=== PATIENT | female | born 1965 | race Caucasian/White ===

== ENCOUNTER → 2016-09-24 | Outpatient (CLI) | payer OTHER ==
[~2016-09-24] MED LIST: /WARF25TA PO; ACET65TA; ALBUTEROL INHL INH; AMLO5TAB; ARMO90TA SL; ASPI325T OR; BENA25CA PO; EPIP0.3I10 IM; LEVO125T; MAAL600C PO; METO25TA2 OR; MYLASSUD PO; OXYC30TA4 PO; PERC7.5T12 PO; TRAZ100T2 PO; TYLE325T5 PO; VICO5TAB; VOLT75TA; XANA0.5T OR; [UNRECOGNIZED DRUG - OTHER] PO
[2016-09-24 13:43] LABS: FREE T4 0.5 NG/DL (0.76-1.46)
== END ==
LOC: M LAB 11:57
PROVIDERS: ATTEND Student in an Organized Health Care Education/Training Program
DX: E03.9 Hypothyroidism, unspecified (principal)

== ENCOUNTER → 2016-09-27 | Outpatient (CLI) | payer OTHER ==
--- NOTE | 2016-09-27 11:32 | REP ---
Clinical: Hypothyroidism. Technique: Real time casiano scale and color evaluation of the thyroid gland using linear high frequency transducer. Findings: The thyroid gland is heterogeneous but without focal nodule or cystic lesions identified. Right lobe measures 2.9 x 0.9 x 1.2 cm. Left lobe measures 2.6 x 0.8 x 1.0 cm. Isthmus measures 1.8 mm in width. Impression: Heterogeneous diminutive thyroid gland Signed by Ash Jo MD 09/27/2016 11:23 A
== END ==
LOC: M RAD 09:46
PROVIDERS: ATTEND Student in an Organized Health Care Education/Training Program
DX: E03.9 Hypothyroidism, unspecified (principal)

== ENCOUNTER → 2016-10-28 | Outpatient (REF) | payer OTHER ==
[2016-10-28 16:12] LABS: ALBUMIN 3.8 GM/DL (3.2-5.2); CALCIUM LEVEL 8.8 MG/DL (8.5-10.1); CREATININE FOR GFR 1.08 MG/DL (0.55-1.02); FREE T4 0.99 NG/DL (0.76-1.46); GLOMERULAR FILTRATION RATE 56.5 (>51); PHOSPHORUS LEVEL 2.2 MG/DL (2.5-4.9); POTASSIUM SERUM 4.3 MEQ/L (3.5-5.1)
== END ==
LOC: M LABDRAW1 15:20
PROVIDERS: ATTEND Student in an Organized Health Care Education/Training Program
DX: E03.9 Hypothyroidism, unspecified (principal); R79.89 Other specified abnormal findings of blood chemistry

== ENCOUNTER → 2016-12-03 | Outpatient (CLI) | payer OTHER ==
[2016-12-03 11:23] LABS: FREE T4 1.53 NG/DL (0.76-1.46)
== END ==
LOC: M LAB 09:58
PROVIDERS: ATTEND Student in an Organized Health Care Education/Training Program
DX: E03.9 Hypothyroidism, unspecified (principal)

== ENCOUNTER → 2017-01-03 | Outpatient (REF) | payer OTHER ==
[2017-01-03 12:48] LABS: FREE T4 1.51 NG/DL (0.76-1.46)
== END ==
LOC: M LABDRAW1 11:30
PROVIDERS: ATTEND Student in an Organized Health Care Education/Training Program
DX: E03.9 Hypothyroidism, unspecified (principal)

== ENCOUNTER → 2017-01-28 | Outpatient (REF) | payer OTHER | LOC: M SFHCPLAZ 12:13 | PROVIDERS: ATTEND Family Medicine | DX: M13.0 Polyarthritis, unspecified (principal) ==

== ENCOUNTER → 2017-01-28 | Outpatient (CLI) | payer OTHER ==
[2017-01-28 13:38] LABS: URIC ACID 5.5 MG/DL (2.6-6.0)
[2017-01-30 00:06] LABS: Lyme Disease IgG/IgM Antibodie <0.91 ISR (0.00-0.90); Lyme Disease IgM Ab Quantitati <0.80 index (0.00-0.79)
== END ==
LOC: M LAB 12:39
PROVIDERS: ATTEND Family Medicine
DX: M13.0 Polyarthritis, unspecified (principal)

== ENCOUNTER → 2017-04-04 | Outpatient (CLI) | payer OTHER ==
[~2017-04-04] MED LIST changes: +ALPR0.25 PO; +ASPI81TA85 PO; +ATEN25TA PO; +COUM2.5T17 PO; +EPIP0.3I2 IM; +LEVO100T5 PO; +NAPR-751 PO; +NAPR500T3 PO; +OXYC1SOL3 PO; +PERC5TAB12 PO; +TOPI100T9 PO; +VITA500046 PO; +[UNRECOGNIZED DRUG - OTHER] PO
--- NOTE | 2017-04-04 10:17 | REPMRS ---
Patient History The patient states she had a clinical breast exam in 02/2017. Patient is postmenopausal. Family history of prostate cancer in father at age 70. Silicone gel implants in both breasts, 1985. Digital Woman Screen Mammo: April 04, 2017 - Exam #: [id number] Bilateral CC and MLO view(s) were taken. Technologist: Tori Estrada, Technologist FINDINGS: There are scattered fibroglandular densities. There is some contour deformity in each breast from previous surgical procedures, right more so than left but unchanged from the April 07, 2009 prior study. There is a small stable nodule in the left breast. There has been no change in the appearance of the mammogram from the prior studies. There is a mild amount of scattered fibroglandular density which is fairly symmetric. There is no interval development of dominant mass, architectural distortion, or clustered microcalcification suggestive of malignancy. ASSESSMENT: BI-RADS/ACR category 2 mammogram. Benign finding(s). Recommendation Routine screening mammogram in 1 year (for women over age 40). This mammogram was interpreted with the aid of an FDA-approved computer-aided dectection system. Electronically Signed By: Lloyd Sanchez MD 04/04/17 [id number]
== END ==
LOC: M WHC 08:32
PROVIDERS: ATTEND Family Medicine
DX: Z12.31 Encounter for screening mammogram for malignant neoplasm of breast (principal)

== ENCOUNTER → 2017-04-07 | Outpatient (CLI) | payer OTHER ==
[2017-04-07 19:18] LABS: FREE T4 1.29 NG/DL (0.76-1.46)
== END ==
LOC: M LAB 15:38
PROVIDERS: ATTEND Student in an Organized Health Care Education/Training Program
DX: E03.9 Hypothyroidism, unspecified (principal)

== ENCOUNTER 2017-04-12 07:54 | Emergency (ER) | payer OTHER ==
[~2017-04-12] VITALS: Ht 170.2 cm; Wt 90.9 kg
[~2017-04-12 07:54] MED LIST changes: -ALPR0.25 PO; -ASPI81TA85 PO; -ATEN25TA PO; -COUM2.5T17 PO; -EPIP0.3I2 IM; -LEVO100T5 PO; -NAPR-751 PO; -NAPR500T3 PO; -OXYC1SOL3 PO; -PERC5TAB12 PO; -TOPI100T9 PO; -VITA500046 PO; -[UNRECOGNIZED DRUG - OTHER] PO
[2017-04-12] MEDS ORDERED: ALPR0.25 PO (08:16)
[2017-04-12] MEDS ORDERED: LEVO100T5 PO (08:16)
[2017-04-12] MEDS ORDERED: OXYC1SOL3 PO (08:16)
[2017-04-12] MEDS ORDERED: ATEN25TA PO (08:16)
[2017-04-12] MEDS ORDERED: NAPR500T3 PO (08:16)
[2017-04-12] MEDS ORDERED: EPIP0.3I2 IM (08:16)
[2017-04-12] MEDS ORDERED: TOPI100T9 PO (08:16)
[2017-04-12] MEDS ORDERED: PERCOCET 5MG/325MG TAB PO ONE (09:30)
[2017-04-12 10:05] VITALS: BP 147/93
[2017-06-23] MEDS ORDERED: [UNRECOGNIZED DRUG - OTHER] PO (10:33)
[2017-06-23] MEDS ORDERED: VITA500046 PO (10:33)
[2017-06-23] MEDS ORDERED: NAPR-751 PO (10:33)
[2017-06-23] MEDS ORDERED: ASPI81TA85 PO (10:33)
== END 2017-04-12 10:23 | disposition home or self-care (01) ==
LOC: M ED 07:54
DX: G89.29 Other chronic pain (principal); M25.552 Pain in left hip; K76.0 Fatty (change of) liver, not elsewhere classified; F41.9 Anxiety disorder, unspecified; K58.9 Irritable bowel syndrome, unspecified; Z88.0 Allergy status to penicillin; Z88.1 Allergy status to other antibiotic agents; Z88.2 Allergy status to sulfonamides
CPT/HCPCS: 96372; 99283; J3360

== ENCOUNTER → 2017-05-02 | Outpatient (CLI) | payer OTHER ==
[~2017-05-02] MED LIST changes: +ALPR0.25 PO; +ASPI81TA85 PO; +ATEN25TA PO; +COUM2.5T17 PO; +EPIP0.3I2 IM; +LEVO100T5 PO; +NAPR-751 PO; +NAPR500T3 PO; +OXYC1SOL3 PO; +PERC5TAB12 PO; +TOPI100T9 PO; +VITA500046 PO; +[UNRECOGNIZED DRUG - OTHER] PO
[2017-05-02 13:02] LABS: BASO % 0.7 % (0.0-1.0); EOS # 0.1 K/mm3 (0.0-0.50); EOS % 1.8 % (0.0-3.0); LARGE UNSTAINED CELL # 0.1 K/mm3 (0.0-0.4); LARGE UNSTAINED CELL % 1.9 % (0.0-4.0); LYMPH % 39.2 % (24.0-44.0); MEAN CORPUSCULAR HEMOGLOBIN 28.3 pg (27.0-33.0); MEAN CORPUSCULAR HGB CONC 31.4 g/dl (32.0-36.5); MEAN CORPUSCULAR VOLUME 90.4 fl (80.0-96.0); MONO # 0.6 K/mm3 (0.0-0.8); MONO % 8.5 % (0.0-5.0); NEUTROPHILS # 3.5 K/mm3 (1.8-7.7); NEUTROPHILS % 47.9 % (36.0-66.0); PLATELET COUNT, AUTOMATED 265 k/mm3 (150-450); RED CELL DISTRIBUTION WIDTH 13.5 % (11.5-14.5); WHITE BLOOD COUNT 7.4 K/mm3 (4.0-10.0)
[2017-05-02 13:25] LABS: ANION GAP 6 MEQ/L (8-16); BLOOD UREA NITROGEN 11 MG/DL (7-18); CALCIUM LEVEL 9.9 MG/DL (8.5-10.1); CARBON DIOXIDE LEVEL 27 MEQ/L (21-32); CHLORIDE LEVEL 111 MEQ/L (98-107); CREATININE FOR GFR 1.01 MG/DL (0.55-1.02); GLOMERULAR FILTRATION RATE > 60.0 (>51); GLUCOSE, FASTING 80 MG/DL (70-105); POTASSIUM SERUM 4.3 MEQ/L (3.5-5.1); SODIUM LEVEL 144 MEQ/L (136-145); URIC ACID 4.9 MG/DL (2.6-6.0)
== END ==
LOC: M LAB 11:35
PROVIDERS: ATTEND Student in an Organized Health Care Education/Training Program
DX: M25.541 Pain in joints of right hand (principal)

== ENCOUNTER → 2017-05-02 | Outpatient (CLI) | payer OTHER ==
--- NOTE | 2017-05-02 14:02 | REP ---
Right hand four views : There is no fracture or dislocation. Mineralization and joint spaces are normal. There are no calcifications or foreign bodies. Impression: Negative right hand . Signed by Colton Pineda MD 05/02/2017 01:53 P
--- NOTE | 2017-05-02 14:07 | REP ---
Bilateral feet: Right foot four views: There is mild joint space narrowing of the DIP and PIP articulations compatible with articular cartilage atrophy. There is mild joint space narrowing of the great toe MTP articulation. The remainder of the joint spaces are unremarkable. Mineralization is normal. There are no calcifications. Skeletal and soft tissue structures otherwise unremarkable except for a tiny barely visible calcaneal plantar spur. Impression: Mild joint space narrowing of the PIP and DIP articulations of the great toe MTP articulation. Left foot four views: There is mild joint space narrowing of the PIP and DIP articulations of the great toe MTP articulation. Remainder of the joint spaces are normal. Mineralization is normal. There is no fracture or dislocation. There is a tiny barely visible calcaneal spur. Impression: Mild DIP, PIP and great toe MTP joint space narrowing. Otherwise, negative left foot. Signed by Colton Pineda MD 05/02/2017 01:58 P
== END ==
LOC: M RAD 12:14
PROVIDERS: ATTEND Family Medicine
DX: M79.641 Pain in right hand (principal); M79.671 Pain in right foot; M79.672 Pain in left foot; M19.071 Primary osteoarthritis, right ankle and foot; M19.072 Primary osteoarthritis, left ankle and foot

== ENCOUNTER → 2017-06-01 | Outpatient (REF) | payer OTHER ==
[2017-06-01 12:11] LABS: ALBUMIN 3.6 GM/DL (3.2-5.2); ALBUMIN/GLOBULIN RATIO 1.16 (1.00-1.93); ALKALINE PHOSPHATASE 75 U/L (45-117); ALT/SGPT 57 U/L (12-78); ANION GAP 6 MEQ/L (8-16); AST/SGOT 29 U/L (15-37); BILIRUBIN,TOTAL 0.2 MG/DL (0.2-1.0); BLOOD UREA NITROGEN 13 MG/DL (7-18); CALCIUM LEVEL 10.2 MG/DL (8.5-10.1); CARBON DIOXIDE LEVEL 27 MEQ/L (21-32); CHLORIDE LEVEL 114 MEQ/L (98-107); CREATININE FOR GFR 0.84 MG/DL (0.55-1.02); GLOMERULAR FILTRATION RATE > 60.0 (>51); GLUCOSE, FASTING 88 MG/DL (70-105); SODIUM LEVEL 147 MEQ/L (136-145); TOTAL PROTEIN 6.7 GM/DL (6.4-8.2)
== END ==
LOC: M LABDRAW1 10:18
PROVIDERS: ATTEND Student in an Organized Health Care Education/Training Program
DX: R73.03 Prediabetes (principal); I10 Essential (primary) hypertension

== ENCOUNTER → 2017-06-23 | Outpatient (CLI) | payer OTHER ==
[2017-06-23 11:58] LABS: MEAN CORPUSCULAR HEMOGLOBIN 27.9 pg (27.0-33.0); MEAN CORPUSCULAR HGB CONC 31.4 g/dl (32.0-36.5); MEAN CORPUSCULAR VOLUME 88.7 fl (80.0-96.0); RED CELL DISTRIBUTION WIDTH 13.8 % (11.5-14.5)
[2017-06-23 12:11] LABS: INR 0.92
--- NOTE | 2017-06-23 12:14 | REP ---
Chest two views HISTORY: Hypertension Comparison: 12/13/2015 The lungs are clear. The heart is normal in size. The pulmonary vasculature is normal in appearance. The bony structure is intact. IMPRESSION: No acute disease. Signed by Lui Ann MD 06/23/2017 12:06 P
[2017-06-23 13:07] LABS: ALBUMIN 3.6 GM/DL (3.2-5.2); ALBUMIN/GLOBULIN RATIO 1.13 (1.00-1.93); ALKALINE PHOSPHATASE 71 U/L (45-117); ALT/SGPT 28 U/L (12-78); ANION GAP 10 MEQ/L (8-16); AST/SGOT 14 U/L (15-37); BILIRUBIN,TOTAL 0.3 MG/DL (0.2-1.0); BLOOD UREA NITROGEN 8 MG/DL (7-18); CALCIUM LEVEL 9.3 MG/DL (8.5-10.1); CARBON DIOXIDE LEVEL 24 MEQ/L (21-32); CHLORIDE LEVEL 110 MEQ/L (98-107); CREATININE FOR GFR 0.86 MG/DL (0.55-1.02); GLOMERULAR FILTRATION RATE > 60.0 (>51); GLUCOSE, FASTING 86 MG/DL (70-105); POTASSIUM SERUM 4.1 MEQ/L (3.5-5.1); SODIUM LEVEL 144 MEQ/L (136-145); TOTAL PROTEIN 6.8 GM/DL (6.4-8.2)
--- NOTE | 2017-06-23 19:30 | ECGEPIP ---
Stationary ECG Study [facility] Test Date: 2017-06-23 Pat Name: CLARY ROLDAN Department: Room: - Gender: F Cardiovascular Tech: KERRY : 1965 Requested By: Jas Deal Order Number: [id number] Reading MD: Ana Johns Measurements Intervals [place] Rate: 77 P: 57 MN: 186 QRS: 21 QRSD: 86 T: 52 QT: 379 QTc: 430 Interpretive Statements SINUS RHYTHM SIMILAR 12/13/15 Electronically Signed On 06-23-2017 19:30:19 EDT by Ana Johns
== END ==
LOC: M ADMPAT 10:12
PROVIDERS: ATTEND Orthopaedic Surgery
DX: Z01.818 Encounter for other preprocedural examination (principal); M16.12 Unilateral primary osteoarthritis, left hip

== ENCOUNTER 2017-07-07 09:30 | Inpatient (IN) | payer OTHER ==
[2017-06-23 10:34] VITALS: BP 124/86
[~2017-07-07] VITALS: Ht 170.2 cm; Wt 87.1 kg
[~2017-07-07 09:30] MED LIST changes: -COUM2.5T17 PO; -PERC5TAB12 PO
[2017-07-07] MEDS ORDERED: PREGABALIN 75 MG CAP(LYRICA) PO ONE (12:45)
[2017-07-07] MEDS ORDERED: PERCOCET 5MG/325MG TAB PO ONE (12:45)
[2017-07-07] MEDS ORDERED: LR 1,000 ML IV ONE (12:45)
--- NOTE | 2017-07-07 13:44 | HPE ---
DATE OF ADMISSION: 07/07/2017 HISTORY OF PRESENT ILLNESS: This is a pleasant female with continuing symptomatic left hip osteoarthritis, x-rays are consistent with advanced osteoarthritis. She has consented for a left hip total arthroplasty per Dr. Jas Bolden. Medical optimization per Dr. Luz. ALLERGIES: PENICILLIN, SULFA, CLINDAMYCIN HCL, ESTRACE, PREDNISONE. MEDICATIONS: Include: - levothyroxine 100 mcg one tablet on empty stomach in the morning by mouth once a day - fluocinonide 05% ointment as directed twice daily - EpiPen two pack 0.3 mg as needed - atenolol 25 mg one tablet orally once a day - aspirin 81 mg chewable tablet orally once a day - Topamax 100 mg tablet one tablet orally daily - Synthroid 100 mcg tablet one tablet on empty stomach in the morning orally once a day - naproxen 375 mg tablet one tablet orally three times as needed - Tylenol 325 mg capsules, two capsules as needed orally every 6 hours - magnesium 400 mg capsule orally twice a week - tart russell advanced - gingko biloba 300-600-100 mg tablet orally - melatonin 3 mg one tablet at bedtime as needed with food orally once a day - krill oil 1000 mg capsule orally - ProAir FHA 108 (90 base) mcg/ACT aerosol solution two puffs as needed inhalation every 4 hours MEDICAL PROBLEM LIST: Symptomatic left hip osteoarthritis. Seborrheic dermatitis. Obesity. Hypertension. Hyperthyroidism. Anxiety. Bulimia. Depression. Irritable bowel syndrome. Asthma, exercise-induced. Osteoporosis. Diverticulosis. Social anxiety disorder. Nonalcoholic fatty liver disease. An episode of confusion on 12/13/2015 SURGICAL HISTORY: Gallbladder. Broken arm. Ulnar nerve transposition. Right hip arthroplasty. Breast implants removed. FAMILY HISTORY: Alzheimer's, hypercholesteremia, diabetes mellitus, prostate cancer, hypothyroidism, uterine and cervical cancer, coronary artery disease. SOCIAL HISTORY: Former smoker. Denies ethanol intake or illicit drugs. REVIEW OF SYSTEMS: She denies chest pain, shortness of breath, dyspnea on exertion, fever, chills, malaise, upper respiratory or urinary tract symptoms. PHYSICAL EXAMINATION: Vital signs: Blood pressure (BP) 118/74, pulse 66, temperature 98.6, height 67.5, weight 190, body mass index (BMI) 29.3, respiration 12. She is a pleasant well-developed, well-nourished, overweight female in acute distress. She is alert and oriented times three. Mood and affect are appropriate. Left hip range of motion is limited and irritable through internal and external range of motion. Bowel sounds times four, soft, nontender. Chest: Regular rate and rhythm. Chest rises symmetrically. Lungs: Clear to auscultation. Neck: Supple. Negative jugular venous distention (JVD) or bruits. Normocephalic. Chest x-ray: No acute disease as read by Dr. Ann 06/23/2017. Electrocardiogram (EKG): Sinus rhythm as read by Ana Johns MD. LABORATORIES: Were reviewed. No gross abnormalities were visualized. Nasal and sinus culture: Normal eri present. I was unable to see her urine culture, get access to her urine culture. IMPRESSION: 1. Symptomatic left hip osteoarthritis. 2. The patient consented for a left total hip arthroplasty per Dr. Jas Bolden. 3. Medical optimization by Dr. Lzu. 4. The patient has history of allergy to PENICILLIN and CLINDAMYCIN, so consideration of vancomycin in operating room (OR). 5. Sequential compression device (SCD) and thromboembolic deterrents (TEDs) in OR. Consent was updated and reviewed. [facility]
[2017-07-07] MEDS ORDERED: TRANEXAMIC ACID 100 MG/ML 10ML VIAL As Ordered ONE (14:48)
[2017-07-07] MEDS ORDERED: BUPIVACAINE/EPIN 0.25% 30 ML VIAL As Ordered ONE (14:48)
[2017-07-07] MEDS ORDERED: ceFAZolin 1GM INJ (J0690) As Ordered ONE (14:48)
[2017-07-07] MEDS ORDERED: EPINEPHrine INJ 1 MG/ML 1ML AMP As Ordered ONE (14:49)
[2017-07-07] MEDS ORDERED: MIDAZOLAM INJ 5 MG/ML VIAL (J2250) As Ordered ONE (15:37)
[2017-07-07] MEDS ORDERED: PROPOFOL 200 MG/20 ML VIAL As Ordered ONE (15:37)
[2017-07-07] MEDS ORDERED: LIDOCAINE 2% INJ 100 MG/5 ML SDV (FOR ANES.) As Ordered ONE (15:37)
[2017-07-07] MEDS ORDERED: fentaNYL 100 MCG/2 ML INJECTION (J3010) As Ordered ONE (15:38)
[2017-07-07] MEDS ORDERED: LR 1,000 ML IV SCH (18:30)
[2017-07-07] MEDS ORDERED: fentaNYL 100 MCG/2 ML INJECTION (J3010) IV PRN (18:30)
[2017-07-07] MEDS ORDERED: ONDANSETRON 4MG/2ML VIAL (J2405) IV PRN (18:30)
[2017-07-07] MEDS ORDERED: METOCLOPRAMIDE INJ 10MG/2ML VIAL (J2765) IV PRN (18:30)
[2017-07-07] MEDS ORDERED: PERCOCET 5MG/325MG TAB PO PRN ×2 (18:30→18:45)
[2017-07-07] MEDS ORDERED: MORPHINE 2 MG/ML 1ML SYRINGE IV PRN (18:30)
[2017-07-07] MEDS ORDERED: PROMETHAZINE INJ 25 MG/ML VIAL (J2550) IV PRN (18:45)
[2017-07-07] MEDS ORDERED: ACETAMINOPHEN TAB 650MG DOSE (2X325MG) PO PRN (18:45)
[2017-07-07] MEDS ORDERED: FLEET ENEMA PR PRN (18:45)
[2017-07-07 19:45] VITALS: BP 149/88
[2017-07-07] MEDS ORDERED: WARFARIN SOD 3 MG TAB PO ONE (20:00)
[2017-07-07] MEDS ORDERED: WARFARIN SOD 1 MG TAB PO ONE (20:00)
[2017-07-07 20:15] VITALS: BP 143/87
[2017-07-07 20:19] VITALS: BP 143/87
--- NOTE | 2017-07-07 20:39 | CR.PDOC ---
[facility] Consultation Consultation DATE OF CONSULTATION: 07/07/17 PRIMARY CARE PHYSICIAN: Dr. Luz REFERRING PROVIDER: Dr. Bolden ATTENDING PHYSICIAN: Dr. Bolden REASON FOR CONSULTATION/CHIEF COMPLAINT: Medical Co-management HISTORY OF PRESENT ILLNESS: This 52-year-old female past medical history of hypothyroidism, hypertension, obesity, depression, asthma who presents for right total hip for severe osteoarthritis. Patient denies chest pain/shortness of breath/palpitations. No nausea/vomiting/ abdominal pain. Feels well. ALLERGIES: Please see below. HOME MEDICATIONS: Please see below. PHYSICAL EXAMINATION: Vitals: (see below) General: No acute distress, laying comfortably in bed. HEENT: Moist mucous membranes. Neck: No JVD or lymphadenopathy Cardiac: RRR, No murmurs Pulm: Coarse crackles at the bases b/l. No wheezing, rhonchi Abd: NT/ND + BS Ext: No edema or cyanosis. Left hip with no bleeding noted. Bandage intact. Distal pulses intact. LABORATORY DATA: See below. IMAGING: MICROBIOLOGY: Please see below. ASSESSMENT/PLAN: 1. Postop day 0 status post left total hip management per orthopedics 2. Hypothyroidism- continue Synthroid 3. Hypertension- continue home meds 4. History of obesity 5. History of asthma 6. History of osteoporosis 7. History of NALFD 8. History of depression DVT prophylaxis- per orthopedics Vital Signs/I&O Vital Signs Date Time Temp Pulse Resp B/P (MAP) Pulse Ox O2 Delivery O2 Flow Rate FiO2 07/07/17 20:19 97.6 73 18 143/87 (105) 98 Room Air I&O- Last 24 Hours up to 6 AM 07/08/17 06:00 Intake Total 2830 ml Output Total 610 ml Balance 2220 ml Allergies Coded Allergies: Sulfa Drugs (Verified Allergy, Severe, ANAPHYLAXIS, 06/23/17) Ciprofloxacin (Verified Allergy, Unknown, 06/23/17) Clindamycin (Verified Allergy, Unknown, 06/23/17) TAPE (Unverified Adverse Reaction, Unknown, 07/07/17) Home Medications Scheduled (Oxycodone HCl) 5 Mg/5 Ml Rosa, 5 MG PO DAILY, (Reported) (St Claudio Wort Xtra) 1 Cap Cap, 1 CAP PO DAILY, (Reported) Aspirin (Aspir-81) 81 Mg Tab, 81 MG PO DAILY, #30 (Reported) Atenolol (Atenolol) 25 Mg Tab, 25 MG PO DAILY, #30 (Reported) Cholecalciferol (Vitamin D) 5,000 Unit Tab, 5,000 UNIT PO 3XW, (Reported) Levothyroxine Sodium (Synthroid) 100 Mcg Tab, 1 TAB PO DAILY, #30 (Reported) Topiramate (Topiramate) 100 Mg Tab, 100 MG PO DAILY, #45 (Reported) PATIENT STATES ONLY TAKES 100 MG [Albuterol Inhl] , 2 PUFFS INH PRN, (Reported) Scheduled PRN Alprazolam (Alprazolam) 0.25 Mg Tab, 0.25 MG PO Q6H PRN for ANXIETY/AGITATION, # 60 (Reported) Naproxen (Naproxen) 500 Mg Tab, 500 MG PO DAILY PRN for PAIN, #60 (Reported) Naproxen Sodium (Naproxen Sodium Cr) 375 Mg Tab, 375 MG PO BIDP PRN for PAIN, ( Reported) Miscellaneous Medications (Epipen 2-Brad) 0.3 Mg/0.3 Ml Inj, 0.3 MG IM, (Reported) KALEB GRUBER MD Jul 07, 2017 20:39
[2017-07-07] MEDS: GABAPENTIN 300 MG CAP PO SCH (20:41)
[2017-07-07] MEDS: D5W/0.45% SODIUM CHLORIDE 1,000 ML IV SCH (20:41)
[2017-07-07] MEDS: HYDROmorphone HCL 2 MG/ML 1ML VIAL (J1170) IV PRN (20:42)
[2017-07-07 21:15] VITALS: BP 139/74
[2017-07-07 22:15] VITALS: BP 140/72
[2017-07-07 23:15] VITALS: BP 136/75
[2017-07-08] MEDS: NORTRIPTYLINE 10 MG CAP PO SCH ×3 (00:10→20:36)
[2017-07-08] MEDS: PERCOCET 5MG/325MG TAB PO PRN ×4 (00:34→21:19)
[2017-07-08] MEDS: HYDROmorphone HCL 2 MG/ML 1ML VIAL (J1170) IV PRN (04:16)
[2017-07-08] MEDS: LEVOTHYROXINE 100MCG TABLET (0.1MG) PO SCH (05:47)
[2017-07-08 06:00] VITALS: BP 109/73
[2017-07-08 06:56] LABS: MEAN CORPUSCULAR HEMOGLOBIN 28.6 pg (27.0-33.0); MEAN CORPUSCULAR HGB CONC 32.2 g/dl (32.0-36.5); MEAN CORPUSCULAR VOLUME 88.7 fl (80.0-96.0); PLATELET COUNT, AUTOMATED 204 10^3/uL (150-450); RED CELL DISTRIBUTION WIDTH 13.4 % (11.5-14.5); WHITE BLOOD COUNT 9.2 10^3/uL (4.0-10.0)
[2017-07-08 07:15] LABS: INR 0.98
[2017-07-08] MEDS: D5W/0.45% SODIUM CHLORIDE 1,000 ML IV SCH (07:46)
[2017-07-08] MEDS: MIRALAX *UNIT DOSE* 17GM PACKET PO SCH (08:57)
[2017-07-08] MEDS: GABAPENTIN 300 MG CAP PO SCH ×2 (08:57→20:36)
[2017-07-08] MEDS: MOM 30ML SUSPENSION UDC PO SCH (08:57)
[2017-07-08] MEDS: SENOKOT S TAB PO SCH ×2 (08:59→20:20)
[2017-07-08] MEDS: ATENOLOL 25 MG TAB PO SCH (08:59)
--- NOTE | 2017-07-08 09:03 | REP ---
LEFT HIP: Two views of the left hip performed. There is a total hip prosthesis in good position. Structures are well aligned. No acute fracture is seen. Signed by Colton Varma MD 07/11/2017 09:44 A
[2017-07-08 10:00] VITALS: BP 110/78
[2017-07-08 14:00] VITALS: BP 123/77
[2017-07-08] MEDS: TOPIRAMATE (TopAMAX) 100 MG TAB PO SCH (14:02)
[2017-07-08] MEDS: HYDROmorphone HCL 1 MG/ML SYRINGE (J1170) IV PRN ×2 (15:27→20:36)
[2017-07-08] MEDS ORDERED: WARFARIN SOD 5 MG TAB PO ONE (17:00)
[2017-07-08 22:00] VITALS: BP 123/78
[2017-07-09] MEDS: PERCOCET 5MG/325MG TAB PO PRN ×4 (02:10→20:28)
[2017-07-09] MEDS: LEVOTHYROXINE 100MCG TABLET (0.1MG) PO SCH (05:33)
[2017-07-09 06:00] VITALS: BP_DIAS 137
[2017-07-09 06:42] LABS: MEAN CORPUSCULAR HEMOGLOBIN 28.4 pg (27.0-33.0); MEAN CORPUSCULAR HGB CONC 31.9 g/dl (32.0-36.5); MEAN CORPUSCULAR VOLUME 89.1 fl (80.0-96.0); PLATELET COUNT, AUTOMATED 193 10^3/uL (150-450); RED CELL DISTRIBUTION WIDTH 13.3 % (11.5-14.5); WHITE BLOOD COUNT 11.1 10^3/uL (4.0-10.0)
[2017-07-09 07:08] LABS: INR 1.27
[2017-07-09] MEDS: MIRALAX *UNIT DOSE* 17GM PACKET PO SCH (08:44)
[2017-07-09] MEDS: GABAPENTIN 300 MG CAP PO SCH ×2 (08:45→20:17)
[2017-07-09] MEDS: ATENOLOL 25 MG TAB PO SCH (08:45)
[2017-07-09] MEDS: MOM 30ML SUSPENSION UDC PO SCH (08:47)
[2017-07-09] MEDS: TOPIRAMATE (TopAMAX) 100 MG TAB PO SCH (08:47)
[2017-07-09] MEDS: SENOKOT S TAB PO SCH ×2 (08:47→20:17)
--- NOTE | 2017-07-09 13:36 | IPNPDOC ---
Subjective Date Seen The patient was seen on 07/09/17. Subjective Chief Complaint/HPI The patient is a 52-year-old female admitted with a reason for visit of Arthritis Left Hip. Events since last encounter No complaints this am except for pain in the left hip surgical site. no fever or chills, no cheat pian or cough or sob , no abdominal pain , nausea or vomiting. Objective Physical Examination General Exam: Positive: Alert, Cooperative, No Acute Distress Eye Exam: Positive: PERRLA, Conjunctiva & lids normal, EOMI, Negative: Sclera icteric ENT Exam: Positive: Atraumatic, Mucous membr. moist/pink, Pharynx Normal Neck Exam: Positive: Supple, Negative: JVD, thyromegaly Chest Exam: Positive: Clear to auscultation, Normal air movement Heart Exam: Positive: Rate Normal, Regular Rhythm, Normal S1, Normal S2, Negative: Murmurs, Rubs Abdomen Exam: Positive: Normal bowel sounds, Soft, Negative: Tenderness, Hepatospenomegaly Extremity Exam: Positive: Normal pulses, Negative: Clubbing, Cyanosis, Edema Skin Exam: Positive: Nl turgor and temperature, Negative: Rash, Breakdown Assessment /Plan Problems (1) S/P total hip arthroplasty Problem Text: s/p elective left total hip arthroplasty for advanced osteoarthritis. pain control and dvt prophylaxis as per orthopedics. (2) Hypertension Status: Chronic Problem Text: continue home medication atenolol. (3) Hypothyroid Status: Chronic Problem Text: continue synthroid (4) Obesity Status: Chronic (5) Asthma Status: Chronic (6) Fatty liver Status: Chronic (7) Depression Status: Chronic Problem Text: continue amitriptyline and topamax (8) Fibromyalgia Status: Chronic Problem Text: continue gabapentin, topiramate, amitriptyline. Plan/VTE VTE Prophylaxis Ordered?: Yes VS, I&O, 24H, Fishbone Vital Signs/I&O Vital Signs Date Time Temp Pulse Resp B/P (MAP) Pulse Ox O2 Delivery O2 Flow Rate FiO2 07/09/17 13:29 18 Room Air 07/09/17 08:45 93 128/75 07/09/17 06:00 99.2 98 I&O- Last 24 Hours up to 6 AM 07/10/17 06:00 Intake Total 240 ml Balance 240 ml Laboratory Data 24H LABS Laboratory Tests 2 07/09/17 06:02: Nucleated Red Blood Cells % (auto) 0.0, Prothrombin Time 16.1H, Prothromb Time International Ratio 1.27 CBC/BMP Laboratory Tests 07/09/17 06:02 Red Blood Count 4.12, Mean Corpuscular Volume 89.1, Mean Corpuscular Hemoglobin 28.4, Mean Corpuscular Hemoglobin Concent 31.9 L, Red Cell Distribution Width 13.3 MIO YANG MD Jul 09, 2017 13:36
[2017-07-09 14:00] VITALS: BP 106/69
[2017-07-09] MEDS: HYDROmorphone HCL 2 MG/ML 1ML VIAL (J1170) IV PRN (15:04)
[2017-07-09] MEDS ORDERED: WARFARIN SOD 3 MG TAB PO ONE (17:00)
[2017-07-09] MEDS: NORTRIPTYLINE 10 MG CAP PO SCH (20:17)
[2017-07-09 22:00] VITALS: BP 114/73
[2017-07-10] MEDS: PERCOCET 5MG/325MG TAB PO PRN ×3 (00:44→09:37)
[2017-07-10] MEDS: LEVOTHYROXINE 100MCG TABLET (0.1MG) PO SCH (04:51)
[2017-07-10 06:00] VITALS: BP 108/69
[2017-07-10 06:30] LABS: MEAN CORPUSCULAR VOLUME 87.9 fl (80.0-96.0); PLATELET COUNT, AUTOMATED 204 10^3/uL (150-450); RED CELL DISTRIBUTION WIDTH 13.4 % (11.5-14.5); WHITE BLOOD COUNT 10.8 10^3/uL (4.0-10.0)
[2017-07-10 06:48] LABS: INR 1.34
[2017-07-10] MEDS ORDERED: ENOXAPARIN 30 MG/0.3 ML SYR (J1650) SC ONE (08:00)
[2017-07-10] MEDS ORDERED: PERC5TAB12 PO (08:10)
[2017-07-10] MEDS ORDERED: COUM2.5T17 PO (08:10)
[2017-07-10] MEDS: MIRALAX *UNIT DOSE* 17GM PACKET PO SCH (09:00)
[2017-07-10] MEDS: MOM 30ML SUSPENSION UDC PO SCH (09:00)
[2017-07-10] MEDS: GABAPENTIN 300 MG CAP PO SCH (09:35)
[2017-07-10 09:36] VITALS: BP 108/69
[2017-07-10] MEDS: SENOKOT S TAB PO SCH (09:36)
[2017-07-10] MEDS: TOPIRAMATE (TopAMAX) 100 MG TAB PO SCH (09:36)
[2017-07-10] MEDS: ATENOLOL 25 MG TAB PO SCH (09:36)
--- NOTE | 2017-07-12 18:37 | DSES ---
DATE OF ADMISSION: 07/07/2017 DATE OF DISCHARGE: 07/10/2017 ATTENDING PHYSICIAN: Dr Jas Bolden ADMITTING DIAGNOSIS: Left hip osteoarthritis. OTHER DIAGNOSES: Seborrheic dermatitis. Obesity. Hypertension. Hyperthyroid. Anxiety. Bulimia. Irritable bowel syndrome. Exercise induced asthma. Osteoporosis. Diverticulosis. Nonalcoholic fatty liver disease. DISCHARGE DIAGNOSES: Left hip osteoarthritis status post left total hip arthroplasty. HISTORY: Patient is a 52-year-old female with progressively worsening left hip pain and stiffness. She failed to improve with conservative measures. She continues to have pain with weightbearing activities and activities of daily living. She consented for an elective left total hip arthroplasty with Dr. Bolden. OPERATION PERFORMED: Left total hip arthroplasty. HOSPITAL COURSE: The patient underwent a left total hip arthroplasty under spinal anesthesia, which was uneventful. She was up with physical therapy per their protocol, weight bearing as tolerated on the left lower extremity. Patient was discharged on oral pain medications and will resume her preoperative medications and diet. She will take her Coumadin for 30 days postoperatively to prevent deep venous thrombosis. She will follow up in our office in 12-14 days for wound check and staple removal. She is encouraged to contact our office sooner if there is any increased pain, drainage, numbness or tingling in the extremity, redness, fever greater than 101 degrees of any other concerns. Please see medical records for additional details. SUE
--- NOTE | 2017-07-14 11:53 | RO ---
DATE OF PROCEDURE: 07/07/2017 PREOPERATIVE DIAGNOSIS: Left hip osteoarthritis. POSTOPERATIVE DIAGNOSIS: Left hip osteoarthritis. PROCEDURE PERFORMED: Left total hip replacement. SURGEON: Jas Bolden MD [employer]IGH SCHOOL MUSIC DIRECTOR: SABINO De Souza ANESTHESIA: Spinal. ESTIMATED BLOOD LOSS: Less than 150 mL, replaced with crystalloid. COMPLICATIONS: None. INDICATIONS: Progressive discomfort in the left hip. The patient's previous history of right hip replacement did well. COMPONENTS USED: Include DePuy Inland system, including 36 mm femoral head, apex hole eliminator, appropriate stem +5 mm, 54 mm cup, 36 mm polyethylene liner, ceramic femoral head was utilized. Consent reviewed in detail with the patient, including a diomedes discussion of the pathology involved, the procedure proposed, alternatives including doing nothing, risks including but not limited to pain, failure, infection, bleeding blood loss, incomplete relief of symptoms, dislocation, blood clots, infection, need for additional surgery, limp, other problems. The patient agreed to proceed with surgery. OPERATIVE COURSE: Identified in the holding area. Site side verified. Brought to the operating room. Once spinal anesthesia was administered, she was positioned for exposure of the left hip for arthroplasty on the Mcdavid positioner for the modified Hardinge approach. Once I and the employee adviser were comfortable with the patient's positioning, she was sterilely prepped and draped in the usual fashion. Mr. Hernandez stood on the anterior. I stood on the posterior. The incision outlined with a marking pen, infiltrated with 0.25% Marcaine with epinephrine and made with a #10 blade knife. The incision was approximately 12 cm long, made with a #10 blade knife, developed down through skin and subcuticular tissues to the lateral fascia. Longitudinal split was created in the lateral fascia, which was made with a Christiansen scissor. This exposed the greater trochanter, bursa and the abductor mechanism. The abductor mechanism was then split at the 2-o'clock position. Dissection continued down the femoral neck and the acetabular labrum was split using the cautery. Tag stitch was placed in the abductor mechanism for later repair. A cuff of tissue was left in the greater trochanter as the abductor mechanism was reflected off of the greater trochanter anteriorly. Dissection continued releasing longitudinally the vastus lateralis. Hip capsule was also split so that the lesser trochanter could be palpated. The hip was then dislocated using the hook. Mr. Hernandez manipulated the hip into the sterile bag and the greater trochanter was exposed using retractors. Canal opening reamer, followed by canal finding reamer, followed by the lateral reamer was utilized. We reamed through a size 4 stem. Template was utilized and the femoral neck cut was made with an oscillating saw. The femoral head was removed. Once this was accomplished, we utilized serial broaches lateralizing. We ended with a size 4. The broach was removed and attention was turned to the acetabulum. I placed the anterior and posterior retractors and Mr. Hernandez help secure the retractors while I removed the acetabulum labrum, released the transverse acetabular ligament and cleared the floor of the acetabulum. Hemispherical reamers were then utilized to ream the acetabulum. I utilized the hemispherical reamers. I reamed through a size 53 reamer, which seemed to fit appropriately. We selected for a 54 acetabulum and the 54 acetabular component was impacted using a mallet. We used the targeting device. The apex hole eliminator was placed after I had verify the acetabulum was seated. 36 mm polyethylene shell was utilized and verified to be secure impacted with a nylon impactor. Attention turned to the femoral side. I placed the 4 stem, +1 neck length, trial 36 femoral head. Stability was adequate. The abductor mechanism seemed to be at the appropriate tension. We verified stability of the hip with internal rotation and flexion, as well as external rotation and extension. The trial component was dislocated. Irrigation was accomplished. The non trial 4 stem was implanted. The non trial stem seated to the same depth as the trial stem and I then placed the 36 mm non trial ceramic femoral head. The hip was reduced. The placed through a range of motion and found to be stable. I irrigated with pulse lavage. I also irrigated with tranexamic acid (TXA) hemostatic agent. The hemostatic agent was allowed stand for 1 minute. Once this was accomplished and the hemostatic agent was evacuated, we closed the wound. This included closure of the capsule and minimus tissues and reapproximation of the abductor mechanism to the cuff of tissue on the greater trochanter with interrupted stitch. The vastus lateralis was also reapproximated with interrupted and running stitch. Lateral fascia was approximated with interrupted stitch and a running Stratafix stitch. Deep dermis was approximated with interrupted stitch and then I applied the Prineo dressing. Once this was accomplished and the Prineo had dried, I did apply loose ABD dressing. The Mcdavid frame was then disassembled. The patient was moved to the supine position, moved to the hospital bed in good condition. Pillows placed between the knees and she was moved to the recovery room. Mr. Hernandez was present and I was present for the entirety case. For further details, please refer to the medical record.
== END 2017-07-10 12:54 | disposition home health service (06) | DRG 301 ==
LOC: M OR 11:52 → M MS5PR 19:35
PROVIDERS: ADMIT Orthopaedic Surgery; ATTEND Orthopaedic Surgery
PROC: 0SRB02A Replacement of Left Hip Joint with Metal on Polyethylene Synthetic Substitute, Uncemented, Open Approach (ICD-10-PCS; principal; 2017-07-07 13:45)
DX: M16.12 Unilateral primary osteoarthritis, left hip (principal); E66.9 Obesity, unspecified; I10 Essential (primary) hypertension; E03.9 Hypothyroidism, unspecified; F32.9 Major depressive disorder, single episode, unspecified; M81.0 Age-related osteoporosis without current pathological fracture; Z98.86 Personal history of breast implant removal; Z87.891 Personal history of nicotine dependence; Z88.0 Allergy status to penicillin; Z88.2 Allergy status to sulfonamides; Z88.8 Allergy status to other drugs, medicaments and biological substances; Z79.82 Long term (current) use of aspirin

== ENCOUNTER → 2017-07-28 | Outpatient (REF) | payer OTHER ==
[~2017-07-28] MED LIST changes: +COUM2.5T17 PO; +PERC5TAB12 PO
[2017-07-28 15:31] LABS: INR 2.17
== END ==
LOC: M SHH 15:11
PROVIDERS: ATTEND Nurse Practitioner Family
DX: Z51.81 Encounter for therapeutic drug level monitoring (principal); Z79.01 Long term (current) use of anticoagulants

== ENCOUNTER → 2017-08-01 | Outpatient (REF) | payer OTHER ==
[2017-08-01 15:19] LABS: INR 2.31
== END ==
LOC: M SHH 14:21
PROVIDERS: ATTEND Internal Medicine Infectious Disease
DX: Z79.01 Long term (current) use of anticoagulants (principal)

== ENCOUNTER → 2017-08-04 | Outpatient (REF) | payer OTHER ==
[2017-08-04 16:23] LABS: INR 1.83
== END ==
LOC: M SHH 15:51
PROVIDERS: ATTEND Nurse Practitioner Family
DX: Z51.81 Encounter for therapeutic drug level monitoring (principal); Z79.01 Long term (current) use of anticoagulants

== ENCOUNTER → 2017-09-13 | Outpatient (CLI) | payer OTHER | LOC: M LAB 11:24 | PROVIDERS: ATTEND Student in an Organized Health Care Education/Training Program | DX: E03.9 Hypothyroidism, unspecified (principal) ==

== ENCOUNTER → 2017-09-13 | Outpatient (CLI) | payer OTHER ==
[2017-09-13 12:39] LABS: BASO % 0.7 % (0.0-1.0); EOS # 0.1 10^3/uL (0.0-0.50); EOS % 1.2 % (0.0-3.0); IMMATURE GRANULOCYTE % 0.2 % (0-0); LYMPH # 2.1 10^3/uL (1.5-4.5); LYMPH % 35.3 % (24.0-44.0); MEAN CORPUSCULAR HEMOGLOBIN 28.5 pg (27.0-33.0); MEAN CORPUSCULAR HGB CONC 32.4 g/dl (32.0-36.5); MEAN CORPUSCULAR VOLUME 88.2 fl (80.0-96.0); MONO # 0.5 10^3/uL (0.0-0.8); MONO % 8.1 % (0.0-5.0); NEUTROPHILS # 3.2 10^3/uL (1.8-7.7); NEUTROPHILS % 54.5 % (36.0-66.0); PLATELET COUNT, AUTOMATED 295 10^3/uL (150-450); RED CELL DISTRIBUTION WIDTH 14.2 % (11.5-14.5); WHITE BLOOD COUNT 5.9 10^3/uL (4.0-10.0)
[2017-09-13 13:00] LABS: ERYTHROCYTE SEDIMENTATION RATE 5 mm/hr (0-30)
[2017-09-13 13:01] LABS: ALBUMIN 3.7 GM/DL (3.2-5.2); ALBUMIN/GLOBULIN RATIO 1.19 (1.00-1.93); ALKALINE PHOSPHATASE 78 U/L (45-117); ALT/SGPT 41 U/L (12-78); ANION GAP 7 MEQ/L (8-16); AST/SGOT 19 U/L (7-37); BILIRUBIN,TOTAL 0.2 MG/DL (0.2-1.0); BLOOD UREA NITROGEN 10 MG/DL (7-18); CALCIUM LEVEL 9.3 MG/DL (8.5-10.1); CARBON DIOXIDE LEVEL 27 MEQ/L (21-32); CHLORIDE LEVEL 109 MEQ/L (98-107); CREATININE FOR GFR 0.91 MG/DL (0.55-1.02); GLOMERULAR FILTRATION RATE > 60.0 (>51); GLUCOSE, FASTING 86 MG/DL (70-105); SODIUM LEVEL 143 MEQ/L (136-145); TOTAL PROTEIN 6.8 GM/DL (6.4-8.2)
== END ==
LOC: M LAB 11:20
PROVIDERS: ATTEND Internal Medicine
DX: M05.741 Rheumatoid arthritis with rheumatoid factor of right hand without organ or systems involvement (principal)

== ENCOUNTER → 2017-10-13 | Outpatient (REF) | payer OTHER ==
[2017-10-13 18:43] LABS: ALBUMIN/GLOBULIN RATIO 1.25 (1.00-1.93); ALKALINE PHOSPHATASE 78 U/L (45-117); ALT/SGPT 30 U/L (12-78); ANION GAP 6 MEQ/L (8-16); AST/SGOT 13 U/L (7-37); BILIRUBIN,TOTAL 0.2 MG/DL (0.2-1.0); BLOOD UREA NITROGEN 12 MG/DL (7-18); C REACTIVE PROTEIN QUANTITATIV < 0.30 MG/DL (0.00-0.30); CALCIUM LEVEL 9.8 MG/DL (8.5-10.1); CARBON DIOXIDE LEVEL 27 MEQ/L (21-32); CHLORIDE LEVEL 107 MEQ/L (98-107); CREATININE FOR GFR 0.92 MG/DL (0.55-1.02); GLOMERULAR FILTRATION RATE > 60.0 (>51); GLUCOSE, FASTING 104 MG/DL (70-100); POTASSIUM SERUM 4.2 MEQ/L (3.5-5.1); SODIUM LEVEL 140 MEQ/L (136-145); TOTAL PROTEIN 7.2 GM/DL (6.4-8.2)
[2017-10-13 20:28] LABS: BASO % 0.4 % (0.0-1.0); EOS % 0.3 % (0.0-3.0); HEMATOCRIT 46.7 % (36.0-47.0); HEMOGLOBIN 14.9 g/dl (12.0-16.0); IMMATURE GRANULOCYTE % 0.3 % (0-0); LYMPH # 1.8 10^3/uL (1.5-4.5); LYMPH % 17.8 % (24.0-44.0); MEAN CORPUSCULAR HEMOGLOBIN 28.3 pg (27.0-33.0); MEAN CORPUSCULAR HGB CONC 31.9 g/dl (32.0-36.5); MEAN CORPUSCULAR VOLUME 88.6 fl (80.0-96.0); MONO # 0.6 10^3/uL (0.0-0.8); MONO % 6.1 % (0.0-5.0); NEUTROPHILS # 7.4 10^3/uL (1.8-7.7); NEUTROPHILS % 75.1 % (36.0-66.0); PLATELET COUNT, AUTOMATED 289 10^3/uL (150-450); RED BLOOD COUNT 5.27 10^6/uL (4.00-5.40); RED CELL DISTRIBUTION WIDTH 15.3 % (11.5-14.5); WHITE BLOOD COUNT 9.8 10^3/uL (4.0-10.0)
[2017-10-13 21:10] LABS: ERYTHROCYTE SEDIMENTATION RATE 2 mm/hr (0-30)
== END ==
LOC: M LABDRAW1 14:25
DX: M05.741 Rheumatoid arthritis with rheumatoid factor of right hand without organ or systems involvement (principal)
CPT/HCPCS: 36415

== ENCOUNTER → 2017-12-22 | Outpatient (CLI) | payer OTHER ==
[2017-12-22 11:48] LABS: HEMATOCRIT 44.1 % (36.0-47.0); HEMOGLOBIN 14.1 g/dl (12.0-15.5); MEAN CORPUSCULAR HEMOGLOBIN 29.3 pg (27.0-33.0); MEAN CORPUSCULAR VOLUME 91.5 fl (80.0-96.0); PLATELET COUNT, AUTOMATED 278 10^3/uL (150-450); RED BLOOD COUNT 4.82 10^6/uL (4.00-5.40); RED CELL DISTRIBUTION WIDTH 15.1 % (11.5-14.5); WHITE BLOOD COUNT 5.3 10^3/uL (4.0-10.0)
[2017-12-22 13:05] LABS: ANION GAP 5 MEQ/L (8-16); BLOOD UREA NITROGEN 9 MG/DL (7-18); CALCIUM LEVEL 9.6 MG/DL (8.5-10.1); CARBON DIOXIDE LEVEL 27 MEQ/L (21-32); CHLORIDE LEVEL 112 MEQ/L (98-107); CREATININE FOR GFR 0.97 MG/DL (0.55-1.30); FREE T4 1.15 NG/DL (0.76-1.46); GLOMERULAR FILTRATION RATE > 60.0 (>51); GLUCOSE, FASTING 78 MG/DL (70-100); IRON (FE) 81 UG/DL (50-170); MAGNESIUM LEVEL 2.2 MG/DL (1.8-2.4); POTASSIUM SERUM 4.5 MEQ/L (3.5-5.1); SODIUM LEVEL 144 MEQ/L (136-145); THYROID STIMULATING HORMONE 0.741 uIU/ML (0.358-3.740)
== END ==
LOC: M LAB 10:58
DX: E03.9 Hypothyroidism, unspecified (principal)
CPT/HCPCS: 83540

== ENCOUNTER → 2018-01-10 | Outpatient (REF) | payer OTHER ==
[2018-01-10 12:31] LABS: APPEARANCE, URINE CLEAR (CLEAR); BACTERIA, URINE AUTO 1+ (NEGATIVE); BILIRUBIN, URINE AUTO NEGATIVE (NEGATIVE); BLOOD, URINE BLOOD NEGATIVE (NEGATIVE); COLOR, URINE STRAW (YELLOW); GLUCOSE, URINE (UA) AUTO NEGATIVE (NEGATIVE); KETONE, URINE AUTO NEGATIVE (NEGATIVE); LEUKOCYTE ESTERASE, URINE AUTO NEGATIVE (NEGATIVE); NITRITE, URINE AUTO NEGATIVE (NEGATIVE); PROTEIN, URINE AUTO NEGATIVE (NEGATIVE); RBC, URINE AUTO 0 /HPF (0-3); SPECIFIC GRAVITY URINE AUTO 1.002 (1.002-1.035); SQUAMOUS EPITHELIAL CELL UR AU 0 /HPF (0-6); UROBILINOGEN, URINE AUTO 0.2 mg/dL (0.0-2.0); WBC, URINE AUTO 0 /HPF (0-3)
== END ==
LOC: M LAB REF 11:46
DX: L40.50 Arthropathic psoriasis, unspecified (principal)
CPT/HCPCS: 81001

== ENCOUNTER → 2018-01-19 | Outpatient (CLI) | payer OTHER ==
[2018-01-19 12:03] LABS: BASO % 0.5 % (0.0-1.0); EOS % 0.5 % (0.0-3.0); HEMATOCRIT 43.6 % (36.0-47.0); HEMOGLOBIN 14.2 g/dl (12.0-15.5); IMMATURE GRANULOCYTE % 0.3 % (0-3.0); LYMPH # 2.2 10^3/uL (1.5-4.5); LYMPH % 32.8 % (24.0-44.0); MEAN CORPUSCULAR HGB CONC 32.6 g/dl (32.0-36.5); MEAN CORPUSCULAR VOLUME 92.2 fl (80.0-96.0); MONO # 0.5 10^3/uL (0.0-0.8); MONO % 6.9 % (0.0-5.0); NEUTROPHILS # 3.9 10^3/uL (1.8-7.7); PLATELET COUNT, AUTOMATED 260 10^3/uL (150-450); RED BLOOD COUNT 4.73 10^6/uL (4.00-5.40); RED CELL DISTRIBUTION WIDTH 14.4 % (11.5-14.5); WHITE BLOOD COUNT 6.6 10^3/uL (4.0-10.0)
== END ==
LOC: M LAB 11:41
DX: Z23 Encounter for immunization (principal)
CPT/HCPCS: 85025

== ENCOUNTER → 2018-01-24 | Outpatient (CLI) | payer OTHER ==
[2018-01-24 16:36] LABS: C REACTIVE PROTEIN QUANTITATIV 1.39 MG/DL (0.00-0.30)
[2018-01-24 16:50] LABS: ERYTHROCYTE SEDIMENTATION RATE 12 mm/hr (0-30)
== END ==
LOC: M LAB 15:33
DX: Z96.642 Presence of left artificial hip joint (principal)
CPT/HCPCS: 86140

== ENCOUNTER → 2018-02-09 | Outpatient (CLI) | payer OTHER | LOC: M RAD 09:35 | DX: Z96.643 Presence of artificial hip joint, bilateral (principal) ==

== ENCOUNTER → 2018-03-14 | Outpatient (REF) | payer OTHER | LOC: M SFHCPLAZ 16:12 | DX: R35.0 Frequency of micturition (principal); R10.9 Unspecified abdominal pain ==

== ENCOUNTER → 2018-03-15 | Outpatient (CLI) | payer OTHER ==
[2018-03-15 12:42] LABS: BASO % 0.7 % (0.0-1.0); EOS % 0.9 % (0.0-3.0); HEMATOCRIT 44.6 % (36.0-47.0); HEMOGLOBIN 14.6 g/dl (12.0-15.5); IMMATURE GRANULOCYTE % 0.2 % (0-3.0); LYMPH % 45.4 % (24.0-44.0); MEAN CORPUSCULAR HEMOGLOBIN 29.8 pg (27.0-33.0); MEAN CORPUSCULAR HGB CONC 32.7 g/dl (32.0-36.5); MONO # 0.5 10^3/uL (0.0-0.8); MONO % 10.1 % (0.0-5.0); NEUTROPHILS # 1.9 10^3/uL (1.8-7.7); NEUTROPHILS % 42.7 % (36.0-66.0); PLATELET COUNT, AUTOMATED 248 10^3/uL (150-450); WHITE BLOOD COUNT 4.5 10^3/uL (4.0-10.0)
[2018-03-15 13:13] LABS: LIPASE 351 U/L (73-393)
[2018-03-15 13:13] LABS: C REACTIVE PROTEIN QUANTITATIV < 0.30 MG/DL (0.00-0.30)
== END ==
LOC: M LAB 10:59
DX: R10.9 Unspecified abdominal pain (principal)
CPT/HCPCS: 74018

== ENCOUNTER → 2018-05-02 | Outpatient (CLI) | payer OTHER | LOC: M CARPUL 11:01 | DX: J45.40 Moderate persistent asthma, uncomplicated (principal) | CPT/HCPCS: 94060 ==

== ENCOUNTER → 2018-05-31 | Outpatient (REF) | payer OTHER ==
[2018-05-31 15:51] LABS: C REACTIVE PROTEIN QUANTITATIV < 0.30 MG/DL (0.00-0.30)
[2018-05-31 16:05] LABS: ERYTHROCYTE SEDIMENTATION RATE 12 mm/hr (0-30)
== END ==
LOC: M LABDRAW1 14:38
DX: Z96.642 Presence of left artificial hip joint (principal); Z47.1 Aftercare following joint replacement surgery

== ENCOUNTER → 2018-08-18 | Outpatient (REF) | payer OTHER ==
[2018-08-18 13:26] LABS: ANION GAP 7 MEQ/L (8-16); BLOOD UREA NITROGEN 13 MG/DL (7-18); CALCIUM LEVEL 9.3 MG/DL (8.5-10.1); CARBON DIOXIDE LEVEL 29 MEQ/L (21-32); CHLORIDE LEVEL 109 MEQ/L (98-107); GLOMERULAR FILTRATION RATE > 60.0 (>51); GLUCOSE, FASTING 81 MG/DL (70-100); POTASSIUM SERUM 4.1 MEQ/L (3.5-5.1); SODIUM LEVEL 145 MEQ/L (136-145)
== END ==
LOC: M LABDRAW1 11:22
DX: M05.79 Rheumatoid arthritis with rheumatoid factor of multiple sites without organ or systems involvement (principal)
CPT/HCPCS: 80048

== ENCOUNTER → 2018-10-30 | Outpatient (REF) | payer OTHER ==
[~2018-10-30] MED LIST changes: +NAPR-885 PO; -NAPR500T3 PO
[2018-10-30 18:44] LABS: BASO # 0.1 10^3/uL (0.0-0.2); BASO % 0.9 % (0.0-1.0); EOS # 0.1 10^3/uL (0.0-0.50); EOS % 1.4 % (0.0-3.0); HEMOGLOBIN 14.4 g/dl (12.0-15.5); LYMPH % 51.5 % (24.0-44.0); MEAN CORPUSCULAR HEMOGLOBIN 30.6 pg (27.0-33.0); MEAN CORPUSCULAR HGB CONC 32.7 g/dl (32.0-36.5); MEAN CORPUSCULAR VOLUME 93.6 fl (80.0-96.0); MONO # 0.7 10^3/uL (0.0-0.8); MONO % 11.9 % (0.0-5.0); NEUTROPHILS % 34.1 % (36.0-66.0); PLATELET COUNT, AUTOMATED 310 10^3/uL (150-450); WHITE BLOOD COUNT 5.8 10^3/uL (4.0-10.0)
[2018-10-30 19:12] LABS: ALBUMIN 3.9 GM/DL (3.2-5.2); ALT/SGPT 31 U/L (12-78); BILIRUBIN,TOTAL 0.2 MG/DL (0.2-1.0); BLOOD UREA NITROGEN 12 MG/DL (7-18); C REACTIVE PROTEIN QUANTITATIV < 0.30 MG/DL (0.00-0.30); CALCIUM LEVEL 9.3 MG/DL (8.5-10.1); CARBON DIOXIDE LEVEL 27 MEQ/L (21-32); CHLORIDE LEVEL 108 MEQ/L (98-107); CREATININE FOR GFR 0.99 MG/DL (0.55-1.30); GLOMERULAR FILTRATION RATE > 60.0 (>51); GLUCOSE, FASTING 77 MG/DL (70-100); POTASSIUM SERUM 4.4 MEQ/L (3.5-5.1); SODIUM LEVEL 141 MEQ/L (136-145)
[2018-10-30 19:38] LABS: ERYTHROCYTE SEDIMENTATION RATE 4 mm/hr (0-30)
[2018-11-01 10:58] LABS: SSA SJOGRENS A 0.3 AI (0.0-0.9); SSB SJOGRENS B <0.2 AI (0.0-0.9)
== END ==
LOC: M LABDRAW1 12:59
PROVIDERS: ATTEND Nurse Practitioner Family
DX: M05.79 Rheumatoid arthritis with rheumatoid factor of multiple sites without organ or systems involvement (principal)

== ENCOUNTER → 2018-12-21 | Outpatient (REF) | payer OTHER ==
[~2018-12-21] MED LIST changes: -/WARF25TA PO; +BIOT10TA2 PO; +COUM1TAB18 PO; +CYCL10TA PO; +DAILTAB8 PO; +FISH7.5C PO; +HUMI40IN2; +METH2.5T48 PO; +MILK150C PO; +MUCI600T31 PO; +TOPI200T7 PO; +VITA80003 PO
[2018-12-21 13:24] LABS: BASO % 0.8 % (0.0-1.0); EOS # 0.1 10^3/uL (0.0-0.50); EOS % 0.9 % (0.0-3.0); HEMATOCRIT 45.6 % (36.0-47.0); LYMPH # 2.8 10^3/uL (1.5-4.5); LYMPH % 52.8 % (24.0-44.0); MEAN CORPUSCULAR HEMOGLOBIN 30.1 pg (27.0-33.0); MEAN CORPUSCULAR HGB CONC 32.9 g/dl (32.0-36.5); MEAN CORPUSCULAR VOLUME 91.4 fl (80.0-96.0); MONO # 0.6 10^3/uL (0.0-0.8); MONO % 10.9 % (0.0-5.0); NEUTROPHILS # 1.8 10^3/uL (1.8-7.7); NEUTROPHILS % 34.4 % (36.0-66.0); PLATELET COUNT, AUTOMATED 281 10^3/uL (150-450); RED BLOOD COUNT 4.99 10^6/uL (4.00-5.40); WHITE BLOOD COUNT 5.3 10^3/uL (4.0-10.0)
== END ==
LOC: M LABDRAW1 12:32
PROVIDERS: ATTEND Nurse Practitioner Family
DX: M05.79 Rheumatoid arthritis with rheumatoid factor of multiple sites without organ or systems involvement (principal)

== ENCOUNTER 2018-12-22 19:57 | Emergency (ER) | payer OTHER ==
[~2018-12-22] VITALS: Ht 170.2 cm; Wt 86.4 kg
[~2018-12-22 19:57] MED LIST changes: -BIOT10TA2 PO; -CYCL10TA PO; -DAILTAB8 PO; -FISH7.5C PO; -HUMI40IN2; -METH2.5T48 PO; -MILK150C PO; -MUCI600T31 PO; -TOPI200T7 PO; -VITA80003 PO
[2018-12-22] MEDS ORDERED: VITA80003 PO (20:09)
[2018-12-22] MEDS ORDERED: TOPI200T7 PO (20:09)
[2018-12-22] MEDS ORDERED: FISH7.5C PO (20:09)
[2018-12-22] MEDS ORDERED: DAILTAB8 PO (20:09)
[2018-12-22] MEDS ORDERED: MILK150C PO (20:51)
[2018-12-22] MEDS ORDERED: MUCI600T31 PO (20:51)
[2018-12-22] MEDS ORDERED: METH2.5T48 PO (20:51)
[2018-12-22] MEDS ORDERED: CYCL10TA PO (20:51)
[2018-12-22] MEDS ORDERED: BIOT10TA2 PO (20:51)
[2018-12-22] MEDS ORDERED: HUMI40IN2 (20:51)
[2018-12-22 21:15] LABS: INR 0.97
[2018-12-22 21:16] LABS: PARTIAL THROMBOPLASTIN TIME 28.9 SECONDS (25.4-37.6)
[2018-12-22 21:32] LABS: D-DIMER QUANT 2092.79 ng/ml (<500)
[2018-12-22 21:34] LABS: ALT/SGPT 37 U/L (12-78); BILIRUBIN,DIRECT < 0.1 MG/DL (0.0-0.2); BILIRUBIN,TOTAL 0.3 MG/DL (0.2-1.0); BLOOD UREA NITROGEN 17 MG/DL (7-18); CALCIUM LEVEL 10.1 MG/DL (8.5-10.1); CARBON DIOXIDE LEVEL 27 MEQ/L (21-32); CHLORIDE LEVEL 109 MEQ/L (98-107); CPK CREATINE PHOSPHOKINASE 125 U/L (26-192); CREATININE FOR GFR 1.29 MG/DL (0.55-1.30); FREE T4 1.42 NG/DL (0.76-1.46); GLOMERULAR FILTRATION RATE 45.7 (>51); GLUCOSE, FASTING 107 MG/DL (70-100); MAGNESIUM LEVEL 2.3 MG/DL (1.8-2.4); MB/CK RELATIVE INDEX 1.36 (< OR =4); POTASSIUM SERUM 3.6 MEQ/L (3.5-5.1); SODIUM LEVEL 143 MEQ/L (136-145); THYROID STIMULATING HORMONE 0.456 uIU/ML (0.358-3.740); TOTAL PROTEIN 6.8 GM/DL (6.4-8.2); TROPONIN I < 0.02 NG/ML (< 0.10)
--- NOTE | 2018-12-22 21:34 | ECGEPIP ---
Stationary ECG Study [facility] - ED Test Date: 2018-12-22 Pat Name: CLARY ROLDAN Department: Room: - Gender: F Slab Puller: GALI : 1965 Requested By: MICHEAL AMATO PA-C Order Number: [id number] Reading MD: Cipriano Gaona Measurements Intervals [place] Rate: 71 P: 39 IA: 201 QRS: 5 QRSD: 86 T: 28 QT: 387 QTc: 423 Interpretive Statements SINUS RHYTHM WITH SINUS ARRHYTHMIA Septal Q waves of uncertain significance Electronically Signed On 12-22-2018 21:34:52 EDT by Cipriano Gaona
[2018-12-22 22:01] LABS: AMPHETAMINES LEVEL URINE NEGATIVE (NEGATIVE); BARBITURATES URINE NEGATIVE (NEGATIVE); BENZODIAZEPINES URINE NEGATIVE (NEGATIVE); CANNABINOIDS URINE POSITIVE (NEGATIVE); COCAINE METABOLITE URINE NEGATIVE (NEGATIVE); METHADONE URINE NEGATIVE (NEGATIVE); OPIATES URINE NEGATIVE (NEGATIVE); PHENCYCLIDINE URINE NEGATIVE (NEGATIVE)
[2018-12-22] MEDS ORDERED: ISOVUE-370 76% 100ML VIAL (Q9967) As Ordered ONE (22:18)
--- NOTE | 2018-12-22 23:04 | REP ---
Clinical: Acute chest pain. Technique: Axial contrast enhanced images from the thoracic inlet to the upper abdomen using 100 ml Isovue 370 intravenous contrast material with coronal and sagittal re-formations. Findings: Satisfactory enhancement of the pulmonary vasculature is achieved and no filling defects are identified to suggest pulmonary embolus. Thoracic aorta is normal caliber without aneurysm or dissection. Heart and pericardium are normal. Bilateral lung head are well aerated and clear without acute pulmonary parenchymal consolidation or atelectasis. No nodule or mass lesion. No pleural effusion/reaction. No pneumothorax. No adenopathy. Impression: No evidence for pulmonary embolus. No acute pleuroparenchymal or mediastinal process. Electronically Signed by Ash Jo MD 12/22/2018 10:55 P
[2018-12-22 23:06] VITALS: BP 141/92
== END 2018-12-22 23:46 | disposition home or self-care (01) ==
LOC: M ED 19:57
DX: R20.2 Paresthesia of skin (principal); I49.8 Other specified cardiac arrhythmias; I10 Essential (primary) hypertension; J45.909 Unspecified asthma, uncomplicated; R51 Headache; E03.9 Hypothyroidism, unspecified; M81.0 Age-related osteoporosis without current pathological fracture; K75.81 Nonalcoholic steatohepatitis (NASH); K58.9 Irritable bowel syndrome, unspecified; F41.9 Anxiety disorder, unspecified; F32.9 Major depressive disorder, single episode, unspecified; F40.10 Social phobia, unspecified; Z79.899 Other long term (current) drug therapy; Z88.1 Allergy status to other antibiotic agents; Z88.2 Allergy status to sulfonamides; Z88.0 Allergy status to penicillin; Z91.89 Other specified personal risk factors, not elsewhere classified
CPT/HCPCS: 71275; 80048; 80076; 80307; 81001; 82140; 82550; 82553; 83735; 84439; 84443; 85379; 85610; 85730; 93005; 99284; Q9967

== ENCOUNTER 2019-03-17 00:10 | Emergency (ER) | payer OTHER ==
[~2019-03-17] VITALS: Ht 172.7 cm; Wt 86.4 kg
[2019-03-17 00:10] VITALS: BP 180/90
[~2019-03-17 00:10] MED LIST changes: +BIOT10TA2 PO; +CYCL10TA PO; +DAILTAB8 PO; +FISH7.5C PO; +HUMI40IN2; +METH2.5T48 PO; +MILK150C PO; +MUCI600T31 PO; +TOPI200T7 PO; +VITA80003 PO
--- NOTE | 2019-03-17 15:01 | REP ---
Clinical: Foreign body. Technique: Four AP views from the neck through the pelvis. Findings: Two linear metallic foreign bodies are identified in the left upper quadrant consistent with the given history of swallowed nose ring. Remainder examination is normal. Evidence of prior cholecystectomy. Evidence for prior bilateral hip replacements. Impression: Metallic foreign body within the left upper quadrant consistent with swallowed nose ring. Electronically Signed by Ash Jo MD 03/17/2019 06:51 A
== END 2019-03-17 02:37 | disposition left against medical advice (07) ==
LOC: M ED 00:10
DX: Z53.29 Procedure and treatment not carried out because of patient's decision for other reasons (principal)

== ENCOUNTER → 2019-03-23 | Outpatient (REF) | payer OTHER ==
[~2019-03-23] MED LIST changes: +FOLI1TAB11 PO
== END ==
LOC: M SFHCWAGY 11:13
PROVIDERS: ATTEND Family Medicine
DX: Z12.4 Encounter for screening for malignant neoplasm of cervix (principal)

== ENCOUNTER 2019-03-26 16:25 | Emergency (ER) | payer OTHER ==
[~2019-03-26] VITALS: Ht 170.2 cm; Wt 86.4 kg
[~2019-03-26 16:25] MED LIST changes: -FOLI1TAB11 PO; -GASTROGRAFIN SOLUTION 30ML PO ONE; -GASTROGRAFIN SOLUTION 30ML PO SCH
[2019-03-26] MEDS ORDERED: FOLI1TAB11 PO (18:29)
[2019-03-26] MEDS ORDERED: GASTROGRAFIN SOLUTION 30ML PO SCH (19:15)
[2019-03-26] MEDS ORDERED: ISOVUE-370 76% 100ML VIAL (Q9967) As Ordered ONE (20:45)
--- NOTE | 2019-03-26 21:43 | REPVR ---
EXAM: CT Abdomen and Pelvis With Contrast EXAM DATE/TIME: 03/26/2019 8:51 PM CLINICAL HISTORY: 53 years old, female; Abdominal pain; Localized; Left upper quadrant (luq); Additional info: RO diverticulitis TECHNIQUE: Imaging protocol: Axial computed tomography images of the abdomen and pelvis with intravenous contrast. Coronal and sagittal reformatted images were created and reviewed. Radiation optimization: All CT scans at this facility use at least one of these dose optimization techniques: automated exposure control; mA and/or kV adjustment per patient size (includes targeted exams where dose is matched to clinical indication); or iterative reconstruction. Contrast material: ISOVUE 370; Contrast volume: 100 ml; Contrast route: IV; COMPARISON: PELVIS NON-OB COMPLETE US 02/02/2016 11:49 AM FINDINGS: Lungs: Minimal bilateral lower lobe dependent atelectasis. Liver: The liver attenuation is 77 Hounsfield units and the spleen is 135 Hounsfield units. Gallbladder and bile ducts: Status post cholecystectomy. Mild biliary dilation which is attributed to prior cholecystectomy and is likely physiologic. The CBD measures 12 mm. Pancreas: The pancreatic duct is upper normal measuring 4 mm with no cut off. Spleen: Normal. No splenomegaly. Adrenals: Normal. No mass. Kidneys and ureters: Normal. No hydronephrosis. Stomach and bowel: There a few sigmoid diverticula without diverticulitis. Appendix: A normal appendix is seen. Intraperitoneal space: Normal. No free air. No significant fluid collection. Vasculature: Normal. No abdominal aortic aneurysm. Lymph nodes: Normal. No enlarged lymph nodes. Bladder: Unremarkable as visualized. Reproductive: Unremarkable as visualized. Bones/joints: Facet arthropathy of the lower lumbar spine. Bilateral hip prostheses with beam hardening artifact in the pelvis. Soft tissues: Unremarkable. IMPRESSION: 1. Fatty infiltration of the liver. 2. Status post cholecystectomy. 3. There are a few sigmoid diverticula without diverticulitis. 4. Otherwise negative CT abdomen/pelvis. Electronically signed by: Delfino Nicholas On 03/26/2019 21:43:04 PM
[2019-03-26 22:04] VITALS: BP 137/86
== END 2019-03-26 22:06 | disposition home or self-care (01) ==
LOC: M ED 16:25
DX: K57.30 Diverticulosis of large intestine without perforation or abscess without bleeding (principal); R10.9 Unspecified abdominal pain; M06.9 Rheumatoid arthritis, unspecified; M79.7 Fibromyalgia; I10 Essential (primary) hypertension; E03.9 Hypothyroidism, unspecified; J45.909 Unspecified asthma, uncomplicated; K27.9 Peptic ulcer, site unspecified, unspecified as acute or chronic, without hemorrhage or perforation; K58.9 Irritable bowel syndrome, unspecified; Z87.440 Personal history of urinary (tract) infections; K76.0 Fatty (change of) liver, not elsewhere classified; N80.9 Endometriosis, unspecified; K80.20 Calculus of gallbladder without cholecystitis without obstruction; Z79.899 Other long term (current) drug therapy; Z88.0 Allergy status to penicillin; Z88.2 Allergy status to sulfonamides; Z88.1 Allergy status to other antibiotic agents; Z91.89 Other specified personal risk factors, not elsewhere classified
CPT/HCPCS: 36415; 74177; 99284; Q9963; Q9967

== ENCOUNTER → 2019-03-26 | Outpatient (CLI) | payer OTHER ==
[2019-03-26 14:59] LABS: BASO % 0.7 % (0.0-1.0); EOS % 0.5 % (0.0-3.0); HEMATOCRIT 43.2 % (36.0-47.0); LYMPH # 2.9 10^3/uL (1.5-4.5); LYMPH % 48.8 % (24.0-44.0); MEAN CORPUSCULAR HEMOGLOBIN 29.4 pg (27.0-33.0); MEAN CORPUSCULAR HGB CONC 32.4 g/dl (32.0-36.5); MEAN CORPUSCULAR VOLUME 90.8 fl (80.0-96.0); MONO # 0.6 10^3/uL (0.0-0.8); MONO % 9.3 % (0.0-5.0); NEUTROPHILS # 2.4 10^3/uL (1.8-7.7); NEUTROPHILS % 40.5 % (36.0-66.0); PLATELET COUNT, AUTOMATED 263 10^3/uL (150-450); RED BLOOD COUNT 4.76 10^6/uL (4.00-5.40); WHITE BLOOD COUNT 5.9 10^3/uL (4.0-10.0)
[2019-03-26 15:30] LABS: BILIRUBIN,DIRECT 0.1 MG/DL (0.0-0.2); BILIRUBIN,TOTAL 0.4 MG/DL (0.2-1.0)
== END ==
LOC: M LAB 14:01
PROVIDERS: ATTEND Nurse Practitioner Family
DX: M05.79 Rheumatoid arthritis with rheumatoid factor of multiple sites without organ or systems involvement (principal)

== ENCOUNTER → 2019-03-26 | Outpatient (CLI) | payer OTHER ==
[~2019-03-26] MED LIST changes: +GASTROGRAFIN SOLUTION 30ML PO ONE; +GASTROGRAFIN SOLUTION 30ML PO SCH
[2019-03-26 14:58] LABS: BASO % 0.5 % (0.0-1.0); EOS % 0.5 % (0.0-3.0); HEMATOCRIT 43.5 % (36.0-47.0); HEMOGLOBIN 14.1 g/dl (12.0-15.5); LYMPH # 2.7 10^3/uL (1.5-4.5); LYMPH % 47.7 % (24.0-44.0); MEAN CORPUSCULAR HEMOGLOBIN 29.5 pg (27.0-33.0); MEAN CORPUSCULAR HGB CONC 32.4 g/dl (32.0-36.5); MONO # 0.6 10^3/uL (0.0-0.8); MONO % 10.2 % (0.0-5.0); NEUTROPHILS # 2.3 10^3/uL (1.8-7.7); NEUTROPHILS % 40.9 % (36.0-66.0); PLATELET COUNT, AUTOMATED 257 10^3/uL (150-450); RED BLOOD COUNT 4.78 10^6/uL (4.00-5.40); WHITE BLOOD COUNT 5.7 10^3/uL (4.0-10.0)
[2019-03-26 15:29] LABS: BILIRUBIN,TOTAL 0.4 MG/DL (0.2-1.0); CALCIUM LEVEL 10.2 MG/DL (8.5-10.1); CREATININE FOR GFR 1.14 MG/DL (0.55-1.30); GLOMERULAR FILTRATION RATE 52.7 (>51); TOTAL PROTEIN 7.3 GM/DL (6.4-8.2)
== END ==
LOC: M LAB 14:08
PROVIDERS: ATTEND Student in an Organized Health Care Education/Training Program
DX: R10.12 Left upper quadrant pain (principal); K27.9 Peptic ulcer, site unspecified, unspecified as acute or chronic, without hemorrhage or perforation

== ENCOUNTER → 2019-03-27 | Outpatient (REF) | payer OTHER ==
[~2019-03-27] MED LIST changes: +FOLI1TAB11 PO
== END ==
LOC: M SFHCPLAZ 17:50
PROVIDERS: ATTEND Student in an Organized Health Care Education/Training Program
DX: K27.9 Peptic ulcer, site unspecified, unspecified as acute or chronic, without hemorrhage or perforation (principal)

== ENCOUNTER → 2019-04-20 | Outpatient (REF) | payer OTHER ==
[2019-04-20 14:20] LABS: BASO % 0.7 % (0.0-1.0); EOS % 0.7 % (0.0-3.0); HEMATOCRIT 43.5 % (36.0-47.0); HEMOGLOBIN 13.9 g/dl (12.0-15.5); LYMPH # 2.4 10^3/uL (1.5-4.5); LYMPH % 45.1 % (24.0-44.0); MEAN CORPUSCULAR HEMOGLOBIN 29.8 pg (27.0-33.0); MEAN CORPUSCULAR VOLUME 93.1 fl (80.0-96.0); MONO # 0.5 10^3/uL (0.0-0.8); MONO % 9.2 % (0.0-5.0); NEUTROPHILS # 2.4 10^3/uL (1.8-7.7); NEUTROPHILS % 44.1 % (36.0-66.0); PLATELET COUNT, AUTOMATED 247 10^3/uL (150-450); RED BLOOD COUNT 4.67 10^6/uL (4.00-5.40); WHITE BLOOD COUNT 5.3 10^3/uL (4.0-10.0)
[2019-04-20 14:27] LABS: ALBUMIN 3.7 GM/DL (3.2-5.2); ALT/SGPT 33 U/L (12-78); BILIRUBIN,TOTAL 0.2 MG/DL (0.2-1.0); BLOOD UREA NITROGEN 13 MG/DL (7-18); CALCIUM LEVEL 9.5 MG/DL (8.5-10.1); CARBON DIOXIDE LEVEL 29 MEQ/L (21-32); CHLORIDE LEVEL 110 MEQ/L (98-107); CPK CREATINE PHOSPHOKINASE 49 U/L (26-192); CREATININE FOR GFR 1.02 MG/DL (0.55-1.30); GLOMERULAR FILTRATION RATE 59.9 (>51); GLUCOSE, FASTING 73 MG/DL (70-100); POTASSIUM SERUM 4.2 MEQ/L (3.5-5.1); SODIUM LEVEL 143 MEQ/L (136-145); TOTAL PROTEIN 6.8 GM/DL (6.4-8.2)
[2019-04-20 14:36] LABS: FOLATE > 24.0 NG/ML; VITAMIN B12 LEVEL 565 PG/ML
[2019-04-20 14:52] LABS: ERYTHROCYTE SEDIMENTATION RATE 1 mm/hr (0-30)
== END ==
LOC: M LABNEURO 10:45
PROVIDERS: ATTEND Psychiatry & Neurology Neurology
DX: H02.409 Unspecified ptosis of unspecified eyelid (principal); R51 Headache; R41.3 Other amnesia

== ENCOUNTER → 2019-05-01 | Outpatient (REF) | payer OTHER | LOC: M SFHCPLAZ 12:02 | PROVIDERS: ATTEND Student in an Organized Health Care Education/Training Program | DX: R10.12 Left upper quadrant pain (principal) ==

== ENCOUNTER → 2019-05-07 | Outpatient (CLI) | payer OTHER | LOC: M LAB 16:47 | PROVIDERS: ATTEND Student in an Organized Health Care Education/Training Program | DX: E83.52 Hypercalcemia (principal) ==

== ENCOUNTER → 2019-06-12 | Outpatient (REF) | payer OTHER ==
[2019-06-12 14:49] LABS: BASO % 0.8 % (0.0-1.0); EOS % 0.4 % (0.0-3.0); HEMATOCRIT 44.8 % (36.0-47.0); HEMOGLOBIN 14.3 g/dl (12.0-15.5); LYMPH # 2.3 10^3/uL (1.5-5.0); LYMPH % 45.1 % (24.0-44.0); MEAN CORPUSCULAR HEMOGLOBIN 30.4 pg (27.0-33.0); MEAN CORPUSCULAR HGB CONC 31.9 g/dl (32.0-36.5); MEAN CORPUSCULAR VOLUME 95.3 fl (80.0-96.0); MONO # 0.5 10^3/uL (0.0-0.8); MONO % 9.2 % (0.0-5.0); NEUTROPHILS # 2.3 10^3/uL (1.5-8.5); NEUTROPHILS % 44.5 % (36.0-66.0); PLATELET COUNT, AUTOMATED 235 10^3/uL (150-450); WHITE BLOOD COUNT 5.1 10^3/uL (4.0-10.0)
[2019-06-12 15:07] LABS: ALBUMIN 3.6 GM/DL (3.2-5.2); ALT/SGPT 36 U/L (12-78); BILIRUBIN,TOTAL 0.3 MG/DL (0.2-1.0); BLOOD UREA NITROGEN 10 MG/DL (7-18); C REACTIVE PROTEIN QUANTITATIV < 0.30 MG/DL (0.00-0.30); CALCIUM LEVEL 9.5 MG/DL (8.5-10.1); CARBON DIOXIDE LEVEL 25 MEQ/L (21-32); CHLORIDE LEVEL 112 MEQ/L (98-107); CREATININE FOR GFR 0.88 MG/DL (0.55-1.30); GLOMERULAR FILTRATION RATE > 60.0 (>51); GLUCOSE, FASTING 73 MG/DL (70-100); POTASSIUM SERUM 4.1 MEQ/L (3.5-5.1); SODIUM LEVEL 142 MEQ/L (136-145); TOTAL PROTEIN 6.5 GM/DL (6.4-8.2)
[2019-06-12 15:16] LABS: ERYTHROCYTE SEDIMENTATION RATE 1 mm/hr (0-30)
== END ==
LOC: M LABNEURO 11:37
PROVIDERS: ATTEND Nurse Practitioner Family
DX: M05.79 Rheumatoid arthritis with rheumatoid factor of multiple sites without organ or systems involvement (principal)

== ENCOUNTER → 2019-06-22 | Outpatient (REF) | payer OTHER | LOC: M SFHCPLAZ 13:20 | PROVIDERS: ATTEND Student in an Organized Health Care Education/Training Program | DX: R10.12 Left upper quadrant pain (principal) ==

== ENCOUNTER 2019-07-09 21:43 | Emergency (ER) | payer OTHER ==
[~2019-07-09] VITALS: Ht 170.2 cm; Wt 85.5 kg
[~2019-07-09 21:43] MED LIST changes: -METH2.5T48 PO; +METH2.5T48 SUBQ
[2019-07-09 22:11] LABS: BASO % 0.5 % (0.0-1.0); EOS % 0.4 % (0.0-3.0); HEMATOCRIT 49.8 % (36.0-47.0); HEMOGLOBIN 16.4 g/dl (12.0-15.5); LYMPH # 3.1 10^3/uL (1.5-5.0); LYMPH % 39.1 % (24.0-44.0); MEAN CORPUSCULAR HEMOGLOBIN 30.3 pg (27.0-33.0); MEAN CORPUSCULAR HGB CONC 32.9 g/dl (32.0-36.5); MEAN CORPUSCULAR VOLUME 91.9 fl (80.0-96.0); MONO # 0.9 10^3/uL (0.0-0.8); NEUTROPHILS # 3.8 10^3/uL (1.5-8.5); NEUTROPHILS % 48.9 % (36.0-66.0); PLATELET COUNT, AUTOMATED 311 10^3/uL (150-450); RED BLOOD COUNT 5.42 10^6/uL (4.00-5.40); WHITE BLOOD COUNT 7.8 10^3/uL (4.0-10.0)
[2019-07-09 22:26] LABS: PROTHROMBIN TIME 12.9 SECONDS (11.8-14.0)
[2019-07-09 22:27] LABS: PARTIAL THROMBOPLASTIN TIME 29.8 SECONDS (25.0-38.4)
[2019-07-09 22:33] LABS: BLOOD UREA NITROGEN 14 MG/DL (7-18); CALCIUM LEVEL 10.1 MG/DL (8.5-10.1); CARBON DIOXIDE LEVEL 25 MEQ/L (21-32); CHLORIDE LEVEL 106 MEQ/L (98-107); CK-MB VALUE MASS < 1.0 NG/ML (<3.6); CPK CREATINE PHOSPHOKINASE 65 U/L (26-192); CREATININE FOR GFR 1.19 MG/DL (0.55-1.30); GLUCOSE, FASTING 106 MG/DL (70-100); MB/CK RELATIVE INDEX 1.54 (< OR =4); POTASSIUM SERUM 3.4 MEQ/L (3.5-5.1); SODIUM LEVEL 140 MEQ/L (136-145); TROPONIN I < 0.02 NG/ML (< 0.10)
[2019-07-09] MEDS ORDERED: GABA-845 PO (22:44)
[2019-07-09] MEDS ORDERED: OMEP40CA97 PO (22:44)
[2019-07-09] MEDS ORDERED: PROBCAP14 PO (22:44)
[2019-07-09] MEDS ORDERED: LEXA1TAB2 PO (22:44)
[2019-07-09] MEDS ORDERED: ASPI81TA85 PO (22:44)
[2019-07-09] MEDS ORDERED: XIID5DRO OU (22:44)
[2019-07-09] MEDS ORDERED: GABA800T4 PO (22:44)
[2019-07-09] MEDS ORDERED: HYDR-643 PO (22:44)
[2019-07-09] MEDS ORDERED: HYDR1CRE93 TOP (22:44)
--- NOTE | 2019-07-09 22:48 | REPVR ---
PROCEDURE INFORMATION: Exam: CT Head Without Contrast Exam date and time: 07/09/2019 10:05 PM Clinical history: 54 years old, female; Dizziness; Additional info: CVA - nursing interventions must not delay CT TECHNIQUE: Imaging protocol: Computed tomography of the head without contrast. Radiation optimization: All CT scans at this facility use at least one of these dose optimization techniques: automated exposure control; mA and/or kV adjustment per patient size (includes targeted exams where dose is matched to clinical indication); or iterative reconstruction. COMPARISON: CT Head without contrast 12/13/2015 9:42 PM FINDINGS: Brain: No intracranial hemorrhage or extra-axial fluid collection. No evidence of mass effect or midline shift. Varma-white matter differentiation is intact. Ventricles: No ventriculomegaly. Bones/joints: No acute osseus lesion or fracture. Sinuses: Unremarkable as visualized. Mastoid air cells: Unremarkable. Soft tissues: Unremarkable. IMPRESSION: No acute intracranial pathology. Electronically signed by: Tai Teague On 07/09/2019 22:48:23 PM
[2019-07-10 05:00] VITALS: BP 149/87
--- NOTE | 2019-07-10 10:12 | ECGEPIP ---
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
== END 2019-07-10 05:19 | disposition home or self-care (01) ==
LOC: M ED 21:43
DX: R20.2 Paresthesia of skin (principal); I10 Essential (primary) hypertension; K58.9 Irritable bowel syndrome, unspecified; F41.9 Anxiety disorder, unspecified; F32.9 Major depressive disorder, single episode, unspecified; M79.7 Fibromyalgia; M06.9 Rheumatoid arthritis, unspecified; Z87.891 Personal history of nicotine dependence; Z79.82 Long term (current) use of aspirin; Z79.899 Other long term (current) drug therapy; Z88.0 Allergy status to penicillin; Z88.2 Allergy status to sulfonamides; Z88.1 Allergy status to other antibiotic agents; Z91.89 Other specified personal risk factors, not elsewhere classified

== ENCOUNTER → 2019-08-22 | Outpatient (CLI) | payer OTHER ==
[~2019-08-22] MED LIST changes: +GABA-845 PO; +GABA800T4 PO; +HYDR-643 PO; +HYDR1CRE93 TOP; +LEXA1TAB2 PO; +OMEP40CA97 PO; +PROBCAP14 PO; +XIID5DRO OU
[2019-08-22 15:52] LABS: BASO % 0.8 % (0.0-1.0); EOS # 0.1 10^3/uL (0.0-0.5); HEMATOCRIT 44.5 % (36.0-47.0); HEMOGLOBIN 13.8 g/dl (12.0-15.5); LYMPH # 2.1 10^3/uL (1.5-5.0); LYMPH % 41.3 % (24.0-44.0); MEAN CORPUSCULAR HEMOGLOBIN 29.7 pg (27.0-33.0); MEAN CORPUSCULAR VOLUME 95.9 fl (80.0-96.0); MONO # 0.6 10^3/uL (0.0-0.8); MONO % 11.8 % (0.0-5.0); NEUTROPHILS # 2.3 10^3/uL (1.5-8.5); NEUTROPHILS % 44.7 % (36.0-66.0); PLATELET COUNT, AUTOMATED 255 10^3/uL (150-450); RED BLOOD COUNT 4.64 10^6/uL (4.00-5.40); WHITE BLOOD COUNT 5.1 10^3/uL (4.0-10.0)
[2019-08-22 16:14] LABS: ALBUMIN 3.4 GM/DL (3.2-5.2); ALT/SGPT 31 U/L (12-78); BILIRUBIN,TOTAL 0.3 MG/DL (0.2-1.0); BLOOD UREA NITROGEN 11 MG/DL (7-18); C REACTIVE PROTEIN QUANTITATIV < 0.30 MG/DL (0.00-0.30); CALCIUM LEVEL 9.6 MG/DL (8.5-10.1); CARBON DIOXIDE LEVEL 24 MEQ/L (21-32); CHLORIDE LEVEL 112 MEQ/L (98-107); CREATININE FOR GFR 0.99 MG/DL (0.55-1.30); GLOMERULAR FILTRATION RATE > 60.0 (>51); GLUCOSE, FASTING 82 MG/DL (70-100); POTASSIUM SERUM 4.3 MEQ/L (3.5-5.1); SODIUM LEVEL 142 MEQ/L (136-145); TOTAL PROTEIN 6.5 GM/DL (6.4-8.2)
[2019-08-22 17:55] LABS: ERYTHROCYTE SEDIMENTATION RATE 2 mm/hr (0-30)
== END ==
LOC: M LAB 12:59
PROVIDERS: ATTEND Nurse Practitioner Family
DX: M05.79 Rheumatoid arthritis with rheumatoid factor of multiple sites without organ or systems involvement (principal)

== ENCOUNTER → 2019-09-15 | Outpatient (CLI) | payer OTHER ==
[2019-09-15 12:10] LABS: BASO # 0.1 10^3/uL (0.0-0.2); EOS # 0.1 10^3/uL (0.0-0.5); EOS % 1.7 % (0.0-3.0); HEMATOCRIT 48.4 % (36.0-47.0); HEMOGLOBIN 14.8 g/dl (12.0-15.5); MEAN CORPUSCULAR HGB CONC 30.6 g/dl (32.0-36.5); MEAN CORPUSCULAR VOLUME 94.7 fl (80.0-96.0); MONO # 0.7 10^3/uL (0.0-0.8); MONO % 12.5 % (0.0-5.0); NEUTROPHILS # 2.4 10^3/uL (1.5-8.5); NEUTROPHILS % 45.6 % (36.0-66.0); PLATELET COUNT, AUTOMATED 257 10^3/uL (150-450); RED BLOOD COUNT 5.11 10^6/uL (4.00-5.40); WHITE BLOOD COUNT 5.2 10^3/uL (4.0-10.0)
== END ==
LOC: M LAB 11:22
PROVIDERS: ATTEND Internal Medicine
DX: Z20.818 Contact with and (suspected) exposure to other bacterial communicable diseases (principal)

== ENCOUNTER 2019-09-25 16:51 | Emergency (ER) | payer OTHER ==
[~2019-09-25] VITALS: Ht 170.2 cm; Wt 88.7 kg
--- NOTE | 2019-09-25 17:28 | REPVR ---
PROCEDURE INFORMATION: Exam: CT Head Without Contrast Exam date and time: 09/25/2019 5:23 PM Age: 54 years old Clinical indication: Weakness, facial; Additional info: CVA - nursing interventions must not delay CT TECHNIQUE: Imaging protocol: Computed tomography of the head without contrast. Radiation optimization: All CT scans at this facility use at least one of these dose optimization techniques: automated exposure control; mA and/or kV adjustment per patient size (includes targeted exams where dose is matched to clinical indication); or iterative reconstruction. Other technique: STROKE PROTOCOL was implemented. COMPARISON: CT Head without contrast 07/09/2019 10:04 PM FINDINGS: Brain: There is no evidence of infarct, gottlieb-white matter differentiation is preserved. There is no hemorrhage or extra-axial collection. There is no mass. Ventricles: There is no hydrocephalus. Bones/joints: Unremarkable. No acute fracture. Sinuses: Visualized sinuses are unremarkable. No fluid levels. Mastoid air cells: Visualized mastoid air cells are well aerated. Soft tissues: Unremarkable. IMPRESSION: No intracranial lesion or injury. No change from prior scan ASSESSMENT: ASPECTS ([place] Stroke Program Early CT Score) is 10. Electronically signed by: Rodri Álvarez On 09/25/2019 17:28:34 PM
[2019-09-25] MEDS ORDERED: ACET-683 PO (17:38)
--- NOTE | 2019-09-25 17:38 | REP ---
Portable chest x-ray: Single view. History: CVA. Comparison radiographs March 17, 2019. Findings: The patient is rotated slightly to the left. The lungs are well inflated and clear. The pleural angles appear to be sharp although the most lateral aspect of the left pleural angle is excluded from the field of view. Pulmonary vasculature is not increased. Heart is not enlarged. Impression: No acute disease. Electronically Signed by Valerio Sanchez MD 09/25/2019 05:30 P
[2019-09-25 17:47] LABS: BASO % 0.6 % (0.0-1.0); EOS # 0.1 10^3/uL (0.0-0.5); EOS % 0.9 % (0.0-3.0); HEMATOCRIT 45.6 % (36.0-47.0); HEMOGLOBIN 14.3 g/dl (12.0-15.5); LYMPH # 2.3 10^3/uL (1.5-5.0); LYMPH % 41.7 % (24.0-44.0); MEAN CORPUSCULAR HEMOGLOBIN 29.4 pg (27.0-33.0); MEAN CORPUSCULAR HGB CONC 31.4 g/dl (32.0-36.5); MEAN CORPUSCULAR VOLUME 93.8 fl (80.0-96.0); MONO # 0.6 10^3/uL (0.0-0.8); MONO % 11.5 % (0.0-5.0); NEUTROPHILS # 2.4 10^3/uL (1.5-8.5); NEUTROPHILS % 45.1 % (36.0-66.0); PLATELET COUNT, AUTOMATED 251 10^3/uL (150-450); RED BLOOD COUNT 4.86 10^6/uL (4.00-5.40); WHITE BLOOD COUNT 5.4 10^3/uL (4.0-10.0)
[2019-09-25 17:54] LABS: INR 1.03; PARTIAL THROMBOPLASTIN TIME 29.9 SECONDS (25.0-38.4); PROTHROMBIN TIME 13.2 SECONDS (11.8-14.0)
[2019-09-25 18:07] LABS: HCG, SERUM QUALITATIVE NEGATIVE (NEGATIVE)
[2019-09-25 18:12] LABS: BLOOD UREA NITROGEN 14 MG/DL (7-18); CALCIUM LEVEL 9.3 MG/DL (8.5-10.1); CARBON DIOXIDE LEVEL 22 MEQ/L (21-32); CHLORIDE LEVEL 112 MEQ/L (98-107); CK-MB VALUE MASS < 1.0 NG/ML (<3.6); CPK CREATINE PHOSPHOKINASE 65 U/L (26-192); CREATININE FOR GFR 1.13 MG/DL (0.55-1.30); GLUCOSE, FASTING 109 MG/DL (70-100); MB/CK RELATIVE INDEX 1.54 (< OR =4); POTASSIUM SERUM 3.9 MEQ/L (3.5-5.1); SODIUM LEVEL 142 MEQ/L (136-145); TROPONIN I < 0.02 NG/ML (< 0.10)
[2019-09-25 19:15] VITALS: BP 112/69
[2019-09-25] MEDS ORDERED: predniSONE 20 MG TAB PO ONE (19:15)
[2019-09-25] MEDS ORDERED: ACYC400T PO (19:19)
[2019-09-25] MEDS ORDERED: PRED20TA PO (19:19)
== END 2019-09-25 19:37 | disposition home or self-care (01) ==
LOC: M ED 16:51
DX: G51.0 Bell's palsy (principal); Z79.82 Long term (current) use of aspirin; Z79.899 Other long term (current) drug therapy; Z88.0 Allergy status to penicillin; Z88.2 Allergy status to sulfonamides; Z88.1 Allergy status to other antibiotic agents; Z91.89 Other specified personal risk factors, not elsewhere classified

== ENCOUNTER 2020-01-11 14:57 | Inpatient (IN) | payer OTHER ==
[~2020-01-11] VITALS: Ht 170.2 cm; Wt 93.3 kg
[~2020-01-11 14:57] MED LIST changes: +ACET-683 PO; +ACYC400T PO; +CYCL-707 PO; -CYCL10TA PO; +PRED20TA PO
[2020-01-11] MEDS ORDERED: ALBUTEROL 90 MCG/ACT 8GM HFA INHALER INH ONE ×2 (15:30→18:00)
[2020-01-11] MEDS ORDERED: HYDR200T3 (15:54)
[2020-01-11 15:56] LABS: BASO % 0.2 % (0.0-1.0); EOS % 0.2 % (0.0-3.0); HEMATOCRIT 42.1 % (36.0-47.0); HEMOGLOBIN 13.6 g/dl (12.0-15.5); LYMPH # 0.9 10^3/uL (1.5-5.0); LYMPH % 10.6 % (24.0-44.0); MEAN CORPUSCULAR HEMOGLOBIN 29.4 pg (27.0-33.0); MEAN CORPUSCULAR HGB CONC 32.3 g/dl (32.0-36.5); MEAN CORPUSCULAR VOLUME 90.9 fl (80.0-96.0); MONO # 0.7 10^3/uL (0.0-0.8); MONO % 7.4 % (0.0-5.0); NEUTROPHILS # 7.2 10^3/uL (1.5-8.5); NEUTROPHILS % 81.4 % (36.0-66.0); PLATELET COUNT, AUTOMATED 281 10^3/uL (150-450); RED BLOOD COUNT 4.63 10^6/uL (4.00-5.40); WHITE BLOOD COUNT 8.9 10^3/uL (4.0-10.0)
[2020-01-11] MEDS ORDERED: ACETAMINOPHEN 500 MG TAB PO ONE (16:00)
--- NOTE | 2020-01-11 16:05 | ECGEPIP ---
[facility] - ED Test Date: 2020-01-11 Pat Name: CLARY ROLDAN Department: Room: - Gender: Female [employer]: : 1965 Requested By: Edna Gomez Order Number: [id number] Reading MD: Edna Gomez Measurements Intervals [place] Rate: 93 P: 37 UT: 182 QRS: -3 QRSD: 89 T: 33 QT: 337 QTc: 419 Interpretive Statements SINUS RHYTHM NSTTW abnormalities SIMILAR 07/09/19 Electronically Signed on 01-11-2020 16:05:46 EDT by Edna Gomez
[2020-01-11 16:06] LABS: INR 1.11
[2020-01-11 16:07] LABS: PARTIAL THROMBOPLASTIN TIME 29.9 SECONDS (25.0-38.4)
[2020-01-11 16:09] LABS: D-DIMER QUANT 1143.15 ng/ml (<500)
[2020-01-11 16:31] LABS: ALT/SGPT 59 U/L (12-78); BILIRUBIN,TOTAL 0.6 MG/DL (0.2-1.0); BLOOD UREA NITROGEN 11 MG/DL (7-18); CALCIUM LEVEL 10.1 MG/DL (8.5-10.1); CARBON DIOXIDE LEVEL 24 MEQ/L (21-32); CHLORIDE LEVEL 103 MEQ/L (98-107); CK-MB VALUE MASS < 1.0 NG/ML (<3.6); CPK CREATINE PHOSPHOKINASE 63 U/L (26-192); CREATININE FOR GFR 1.24 MG/DL (0.55-1.30); FERRITIN 206 NG/ML (8-252); GLOMERULAR FILTRATION RATE 47.6 (>51); GLUCOSE, FASTING 91 MG/DL (70-100); LDH LACTATE DEHYDROGENASE 258 U/L (84-246); MB/CK RELATIVE INDEX 1.59 (< OR =4); POTASSIUM SERUM 3.6 MEQ/L (3.5-5.1); SODIUM LEVEL 135 MEQ/L (136-145); TOTAL PROTEIN 8.1 GM/DL (6.4-8.2); TROPONIN I < 0.02 NG/ML (< 0.10)
[2020-01-11] MEDS ORDERED: ISOVUE-370 76% 100ML VIAL As Ordered ONE (16:50)
--- NOTE | 2020-01-11 17:40 | REPVR ---
PROCEDURE INFORMATION: Exam: CT Angiography Chest With Contrast Exam date and time: 01/11/2020 5:02 PM Age: 54 years old Clinical indication: Shortness of breath; Chest pain; Type not specified; Additional info: Cp/sob ? pe TECHNIQUE: Imaging protocol: Computed tomographic angiography of the chest with intravenous contrast. 3D rendering: MIP and/or 3D reconstructed images were created by the technologist. Radiation optimization: All CT scans at this facility use at least one of these dose optimization techniques: automated exposure control; mA and/or kV adjustment per patient size (includes targeted exams where dose is matched to clinical indication); or iterative reconstruction. Contrast material: ISOVUE 370; Contrast volume: 75 ml; Contrast route: IV; COMPARISON: CT ANGIO CHEST 12/22/2018 10:40 PM FINDINGS: Pulmonary arteries: Normal. No pulmonary emboli. Aorta: Unremarkable. No aortic aneurysm. No aortic dissection. Lungs: Patchy ground-glass opacities in the right upper and lower lobe located mostly in the periphery of the lungs. Pleural space: Unremarkable. No pneumothorax. No pleural effusion. Heart: Unremarkable. No cardiomegaly. No pericardial effusion. Lymph nodes: Unremarkable. No enlarged lymph nodes. Bones/joints: Unremarkable. No acute fracture. Soft tissues: Unremarkable. IMPRESSION: No pulmonary embolism. Patchy ground-glass opacities in the right upper and lower lobes scattered in the periphery of the lungs. Etiology infectious/inflammatory. Correlation with lab testing. Electronically signed by: Mikal Wilkerson On 01/11/2020 17:40:01 PM
[2020-01-11] MEDS ORDERED: PRED20TA PO (17:52)
[2020-01-11] MEDS ORDERED: DOXY100C37 PO (17:52)
[2020-01-11] MEDS ORDERED: PROV108A INH ×2 (17:53→20:14)
[2020-01-11] MEDS ORDERED: methylPREDNISolone INJ 125 MG/2 ML VIAL (J2930) IV ONE (19:00)
[2020-01-11] MEDS ORDERED: DOXYCYCLINE HYCLATE 100MG TABLET PO ONE (19:15)
[2020-01-11] MEDS ORDERED: IPRATROPIUM 0.5MG/ALBUTEROL 2.5MG INH SOL UD 3ML (DUONEB)(J7620) NEB PRN (20:15)
[2020-01-11] MEDS ORDERED: VITAD1000T PO (20:45)
[2020-01-11] MEDS ORDERED: ALPR0.5T3 PO (20:45)
[2020-01-11] MEDS ORDERED: MILK300C PO (20:45)
[2020-01-11 21:28] VITALS: BP 138/88
[2020-01-11] MEDS ORDERED: ALPRAZolam 0.5 MG TAB PO PRN (23:00)
[2020-01-11] MEDS ORDERED: hydrOXYzine 10 MG TAB PO PRN (23:00)
--- NOTE | 2020-01-11 23:26 | HPEPDOC ---
General Date of Admission Jan 11, 2020 at 19:29 Date of Service: Jan 11, 2020 Primary Care Physician: MARLENE JACK DO Other Providers Neurologist: Dr. Solorzano Orthopedic surgeon: Dr. Bolden Tie Puller: Dr. Sutton in [place] Chief Complaint The patient is a 54-year-old female admitted with a reason for visit of Dyspnea. History of Present Illness HPI: This is a 54-year-old female with multiple medical conditions as listed below, presenting for gradually worsening shortness of breath in past 5 days with associated dry cough and chest congestion and fevers chills. She denies any recent sick contacts or travel or any changes in medications. Denies hemoptysis, chest pain, skin rashes, adenopathy or any other symptoms. On presentation is found to have temp of 100.4, normal WBC at 7, normal lactate of 1.4, CTA negative for PE but reveals groundglass opacities in the right lung. She received albuterol inhaler, Solu-Medrol 125mg IV, and po doxycycline 100 mg with improvement. She is maintaining her sats on room air and feels improved after treatment, but not to baseline. Shell be admitted for further workup and treat ment. PMH: Hypertension Hypothyroidism Anxiety/dizziness/depression IBS Osteoarthritis Osteoporosis Asthma Nonalcoholic fatty liver disease Fibromyalgia Psoriatic arthritis CKD III Hx of [place] Palsy ?Hx of TIA Past Surgical Hx: Cholecystectomy Right broken arm Left Ulnar nerve transposition Breast implant removed Hip replacement x2 Tonsillectomy Liposuction Family Hx: Father passed of Alzheimers, prostate cancer, hypertension Mother had CVA and hypertension Daughter with heart disease Brother with dextrocardia Social Hx: Lives alone at home with 2 cats Quit smoking decades ago, smoked a few cigarettes daily in teens and 20s Denies any alcohol or illicit substances Owns local store ROS: Constitutional: Denies night sweats, weight loss. Admits fever, chills HEENT: Denies visual/auditory changes, heartburn. Admits headache Skin: Denies any rashes or lesions Pulmonary: Admits dyspnea, dry cough, wheezing. Denies hemoptysis Cardiac: Denies chest pain, palpitations, orthopnea, PND, edema, lightheadedness GI: Denies nausea, vomiting, abdominal pain, diarrhea, constipation, melena, hematochezia MSK: Denies new pains or weakness. Admits chronic joint aches from arthritis Neurologic: Denies new numbness/tingling PHYSICAL: General exam: A&Ox3, NAD, resting comfortably on room air HEENT: NCAT, EOMI, MMM, neck supple Cardiac: RRR, normal S1 & S2, no murmurs Respiratory: CTAB, good air exchange, no w/r/r, no accessory muscle use, no res piratory distress, speaking full sentences with occasional cough Abdomen: soft, NT, ND, normoactive bowel sounds Extremity: 2+ radial and dorsalis pedis pulses, no edema or calf tenderness Skin: [place], warm, dry, no visible rash Msk: strength 5/5 x4, normal tone Neuro: normal speech, no focal deficits Psych: Normal mood and affect LABORATORY DATA, MICROBIOLOGY: Please see below. ASSESSMENT AND PLAN: This is a 54-year-old female gradually worsening shortness of breath or cough the past 1 week with subjective fevers and chills, found on admission to have temp 100.4 and right lung opacities concerning for pneumonia. Dyspnea - Likely multifactorial: CAP (coverage of atypical) with asthma exacerbation - Gradually worsening dyspnea over past 5 days, dry cough, wheezing, fever & chills - COVID & resp panel neg - CTA: patchy ground-glass opacities in the right upper and lower lobes scattered in the periphery of the lungs - 100.4 temp on admission, CRP 20, wheezing, feels improved with steroids - Continue IV Moxifloxacin (coverage of atypical organisms) & steroids - Continue nebs & incentive spirometry - Procal & blood cultures pending For the remainder of her chronic medical conditions as listed above, home meds are resumed. DVT prophylaxis: mechanical DISPOSITION: admit to hospital. Monitor on tele. Home Medications Scheduled Aspirin (Aspir 81) 81 Mg Tablet.dr, 81 MG PO QPM, (Reported) Atenolol (Atenolol) 25 Mg Tab, 25 MG PO DAILY, (Reported) Biotin (Biotin) 10 Mg Tab, 10 MG PO DAILY, (Reported) Cholecalciferol (Vitamin D3) (Vitamin D3) 1,000 Unit Tablet, 5,000 UNITS PO DAILY, (Reported) Escitalopram Oxalate (Lexapro) 20 Mg Tablet, 20 MG PO QAM, (Reported) Folic Acid (Folic Acid) 1 Mg Tablet, 1 MG PO BID, (Reported) Gabapentin (Gabapentin) 800 Mg Tablet, 800 MG PO BID, (Reported) Levothyroxine Sodium (Levothyroxine Sodium) 100 Mcg Tab, 100 MCG PO QPM, (Reported) Lifitegrast (Xiidra) 5% Droperette, 1 DROP OU BID, (Reported) Milk Thistle (Milk Thistle) 150 Mg Capsule, 150 MG PO QAM, (Reported) Brohman-3/Dha/Epa/Fish Oil (Fish Oil EC 1,000 mg Softgel) 1 Cap Cap, 1 CAP PO BID, (Reported) Topiramate (Topiramate) 100 Mg Tab, 100 MG PO BID, (Reported) Vitamin A (Vitamin A) 8,000 Unit Cap, 1 CAP PO DAILY, (Reported) Scheduled PRN Alprazolam (Alprazolam) 0.5 Mg Tablet, 0.5 MG PO Q6H PRN for ANXIETY, (Reported) Hydroxyzine HCl (Hydroxyzine HCl) 10 Mg Tablet, 10 MG PO TID PRN for ITCHING, (Reported) Miscellaneous Medications Epinephrine (Epipen 2-Brad) 0.3 Mg/0.3 Ml Inj, 0.3 MG IM, (Reported) Allergies Coded Allergies: Penicillins (Verified Allergy, Intermediate, questionable, 03/26/19) Sulfa (Sulfonamide Antibiotics) (Verified Allergy, Unknown, anaphylaxis, 03/26/19) clindamycin (Verified Allergy, Unknown, hives, 03/26/19) TAPE (Unverified Adverse Reaction, Unknown, 03/26/19) ciprofloxacin (Verified Adverse Reaction, Unknown, psychological problems, 03/26/19) A-FIB/CHADSVASC A-FIB History Current/History of A-Fib/PAF?: No Vital Signs Vital Signs Date Time Temp Pulse Resp B/P (MAP) Pulse Ox O2 Delivery O2 Flow Rate FiO2 01/11/20 21:28 97.5 95 18 138/88 (105) 97 Room Air Laboratory Data Labs 24H Laboratory Tests 2 01/11/20 15:40: Immature Granulocyte % (Auto) 0.2, Neutrophils (%) (Auto) 81.4H, Lymphocytes (%) (Auto) 10.6L, Monocytes (%) (Auto) 7.4H, Eosinophils (%) (Auto) 0.2, Basophils (%) (Auto) 0.2, Neutrophils # (Auto) 7.2, Lymphocytes # (Auto) 0.9L, Monocytes # (Auto) 0.7, Eosinophils # (Auto) 0.0, Basophils # (Auto) 0.0, Nucleated Red Blood Cells % (auto) 0.0, Prothrombin Time 14.0, Prothromb Time International Ratio 1.11, Activated Partial Thromboplast Time 29.9, D-Dimer, Quantitative 11 43.15H, Anion Gap 8, Glomerular Filtration Rate 47.6L, Lactic Acid Level 1.4, Calcium Level 10.1, Ferritin 206, Total Bilirubin 0.6, Aspartate Amino Transf (AST/SGOT) 53H, Alanine Aminotransferase (ALT/SGPT) 59, Alkaline Phosphatase 117, Lactate Dehydrogenase 258H, Total Creatine Kinase 63, Creatine Kinase MB < 1.0, Creatine Kinase MB Relative Index 1.59, Troponin I < 0.02, C-Reactive Protein, Quantitative 20.30H, Total Protein 8.1, Albumin 3.0L, Albumin/Globulin Ratio 0.59L, Thyroid Stimulating Hormone (TSH) 2.700, Coronavirus (COVID- 19)(PCR) NEGATIVE CBC/BMP Laboratory Tests 01/11/20 15:40 Microbiology Microbiology 01/11/20 Blood Culture, Received Pending 01/11/20 Respiratory Panel (PCR) - Final, Complete 01/11/20 Blood Culture, Received Pending Plan / VTE VTE Prophylaxis Ordered?: Yes GME ATTESTATION GME ATTESTATION My faculty preceptor for this patient encounter was physically present during the encounter and was fully available. All aspects of the patient interview, examination, medical decision making process, and medical care plan development were reviewed and approved by the faculty preceptor. The faculty preceptor is aware and concurs with the plan as stated in the body of this note and will attest to such by his/her cosignature. ATTENDING NOTE I, Harvey Downs, have independently examined this patient and performed my own physical exam, as well as reviewed the documentation and edited where necessary. I have discussed in detail with the resident / student the findings and plan of treatment as documented by the resident / student and edited their note. I agree with their findings and treatment plan and have edited their documentation. I will continue to follow the patient during this hospital stay. VIVI ROJAS DO Jan 11, 2020 23:26 HARVEY DOWNS MD Jan 12, 2020 02:35
[2020-01-11] MEDS: OMEGA-3 1000MG CAPSULE PO SCH (23:59)
[2020-01-11] MEDS: ASPIRIN 81 MG ENTERIC TAB PO SCH (23:59)
[2020-01-11] MEDS: LEVOTHYROXINE 100MCG TABLET (0.1MG) PO SCH (23:59)
[2020-01-11] MEDS: FOLIC ACID 1 MG TAB PO SCH (23:59)
[2020-01-12] VITALS: BP 127/73
[2020-01-12] MEDS: MOXIFLOXACIN HCL 400 MG in IV 1 EA IV SCH ×2 (00:01→20:45)
[2020-01-12] MEDS: IPRATROPIUM 0.5MG/ALBUTEROL 2.5MG INH SOL UD 3ML (DUONEB)(J7620) NEB SCH ×2 (00:23→07:34)
[2020-01-12 04:00] VITALS: BP 131/72
[2020-01-12 05:11] LABS: HEMATOCRIT 43.2 % (36.0-47.0); HEMOGLOBIN 13.8 g/dl (12.0-15.5); MEAN CORPUSCULAR HEMOGLOBIN 29.1 pg (27.0-33.0); MEAN CORPUSCULAR HGB CONC 31.9 g/dl (32.0-36.5); MEAN CORPUSCULAR VOLUME 90.9 fl (80.0-96.0); PLATELET COUNT, AUTOMATED 347 10^3/uL (150-450); RED BLOOD COUNT 4.75 10^6/uL (4.00-5.40); WHITE BLOOD COUNT 5.9 10^3/uL (4.0-10.0)
[2020-01-12 05:45] LABS: C REACTIVE PROTEIN QUANTITATIV 21.7 MG/DL (0.00-0.30); CALCIUM LEVEL 9.9 MG/DL (8.5-10.1); CREATININE FOR GFR 1.16 MG/DL (0.55-1.30); GLOMERULAR FILTRATION RATE 51.4 (>51); MAGNESIUM LEVEL 2.4 MG/DL (1.8-2.4); POTASSIUM SERUM 3.8 MEQ/L (3.5-5.1)
[2020-01-12] MEDS: HEPARIN SOD (PORCINE) 5000UNITS/ML VIAL (J1644 PER 1000UNITS) SQ SCH ×3 (06:24→20:45)
[2020-01-12 08:00] VITALS: BP 152/72
[2020-01-12] MEDS: VITAMIN D 1,000 INTERNATIONAL UNITS TABLET PO SCH (08:37)
[2020-01-12] MEDS: FOLIC ACID 1 MG TAB PO SCH ×2 (08:37→20:44)
[2020-01-12] MEDS: ESCITALOPRAM OXALATE 10 MG TAB (LEXAPRO) PO SCH (08:37)
[2020-01-12] MEDS: TOPIRAMATE (TopAMAX) 100 MG TAB PO SCH ×3 (08:38→20:44)
[2020-01-12] MEDS: OMEGA-3 1000MG CAPSULE PO SCH ×2 (08:38→20:43)
[2020-01-12] MEDS: atenoloL 25 MG TAB PO SCH (08:38)
[2020-01-12] MEDS: GABAPENTIN 400 MG CAP PO SCH ×3 (08:38→20:44)
--- NOTE | 2020-01-12 08:40 | REP ---
REASON FOR EXAM: Coronavirus workup. COMPARISON: 09/25/2019 FINDINGS: The technique utilized in obtaining the radiograph has magnified the cardiac silhouette and accentuated the interstitial markings. The superior mediastinal structures are midline. The cardiac silhouette is unremarkable in size, shape, and position. The diaphragmatic surfaces of the lungs are regular, and the costophrenic angles are clear. The pulmonary head are clear. The imaged osseous structures are intact. IMPRESSION: There is no acute cardiopulmonary disease. No change from the prior exam. Electronically Signed by Juan Oliva DO 01/14/2020 07:52 A
[2020-01-12] MEDS ORDERED: SYMBICORT 160/4.5MCG INHALER 6GM INH SCH (09:00)
[2020-01-12] MEDS ORDERED: methylPREDNISolone INJ 40 MG/1 ML VIAL (J2920) IV SCH (09:00)
[2020-01-12] MEDS ORDERED: BENZONATATE 100 MG CAP PO PRN (09:00)
[2020-01-12] MEDS ORDERED: ALBUTEROL 90 MCG/ACT 8GM HFA INHALER INH PRN (10:00)
[2020-01-12 11:30] VITALS: BP 149/84
--- NOTE | 2020-01-12 12:19 | IPNPDOC ---
Text Note Date of Service The patient was seen on 01/12/20. NOTE SUBJECTIVE: No fever overnight, says coughing up more phlegm now. Complaining of frequency and urgency of urination which started even before the cough. No nausea or vomiting or diarrhea. PHYSICAL: General exam: A&Ox3, NAD, resting comfortably on room air HEENT: NCAT, EOMI, MMM, neck supple Cardiac: RRR, normal S1 & S2, no murmurs Respiratory: CTAB, good air exchange, no accessory muscle use, no respiratory distress, bilateral fine crackles noted Abdomen: soft, NT, ND, normoactive bowel sounds Extremity: 2+ radial and dorsalis pedis pulses, no edema or calf tenderness Skin: [place], warm, dry, no visible rash Msk: strength 5/5 x4, normal tone Neuro: normal speech, no focal deficits Psych: Normal mood and affect LABORATORY DATA, MICROBIOLOGY: Please see below. ASSESSMENT AND PLAN: This is a 54-year-old female with PMH Rheumatoid Arthritis, Hypertension, Hypothyroidism, Anxiety/dizziness/depression, IBS, Osteoarthritis, Osteoporosis, Asthma, Nonalcoholic fatty liver disease, Fibromyalgia, Psoriatic arthritis, CKD III, Hx of [place] Palsy presented with gradually worsening shortness of breath in past 5 days with associated dry cough and chest congestion and fevers and chills. She denies any recent sick contacts or travel or any changes in medications. Denies hemoptysis, chest pain, skin rashes, adenopathy or any other symptoms. On presentation is found to have temp of 100.4, normal WBC at 7, normal lactate of 1.4, CTA negative for PE but reveals ground glass opacities in the right lung. She was admitted for pneumonia. She received albuterol inhaler, Solu-Medrol 125mg IV, and po doxycycline 100 mg with improvement. She was admitted for pneumonia. Community acquired pneumonia with mild exacerbation of asthma will continue moxifloxacin. albuterol prn, methyl pred. COVID & resp panel neg Continue nebs & incentive spirometry Procal & blood cultures pending acapella, incentive spirometry Dysuria will send UA and UC. Hypothyroid synthroid Hypertension atenolol RA/fibromyalgia/psoriatic arthritis gabapentin Anxiety/depression continue alprazolam, lexapro Will continue her home medications for her chronic medical conditions. VS,Fishbone, I+O VS, Fishbone, I+O Laboratory Tests 01/11/20 15:40 01/12/20 04:58 Vital Signs Date Time Temp Pulse Resp B/P (MAP) Pulse Ox O2 Delivery O2 Flow Rate FiO2 01/12/20 11:30 97.1 84 16 95 Room Air 01/12/20 08:00 152/72 (98) I&O- Last 24 Hours up to 6 AM 01/12/20 05:59 Intake Total 0 ml Output Total 250 ml Balance -250 ml MIO YANG MD Jan 12, 2020 12:19
[2020-01-12 14:00] VITALS: BP 119/68
[2020-01-12] MEDS ORDERED: IPRATROPIUM 0.5MG/ALBUTEROL 2.5MG INH SOL UD 3ML (DUONEB)(J7620) NEB SCH (14:00)
[2020-01-12] MEDS: LEVOTHYROXINE 100MCG TABLET (0.1MG) PO SCH (18:09)
[2020-01-12] MEDS: ASPIRIN 81 MG ENTERIC TAB PO SCH (20:44)
[2020-01-12 22:00] VITALS: BP 138/87
[2020-01-13] MEDS: HEPARIN SOD (PORCINE) 5000UNITS/ML VIAL (J1644 PER 1000UNITS) SQ SCH ×3 (05:45→20:27)
[2020-01-13 06:00] VITALS: BP 111/60
[2020-01-13 06:06] LABS: HEMATOCRIT 37.8 % (36.0-47.0); HEMOGLOBIN 12.1 g/dl (12.0-15.5); MEAN CORPUSCULAR HEMOGLOBIN 29.4 pg (27.0-33.0); MEAN CORPUSCULAR VOLUME 91.7 fl (80.0-96.0); PLATELET COUNT, AUTOMATED 313 10^3/uL (150-450); RED BLOOD COUNT 4.12 10^6/uL (4.00-5.40); WHITE BLOOD COUNT 11.9 10^3/uL (4.0-10.0)
[2020-01-13 06:33] LABS: C REACTIVE PROTEIN QUANTITATIV 8.34 MG/DL (0.00-0.30); CALCIUM LEVEL 9.4 MG/DL (8.5-10.1); CREATININE FOR GFR 1.1 MG/DL (0.55-1.30); GLOMERULAR FILTRATION RATE 54.7 (>51); MAGNESIUM LEVEL 2.1 MG/DL (1.8-2.4); POTASSIUM SERUM 3.7 MEQ/L (3.5-5.1)
[2020-01-13] MEDS: OMEGA-3 1000MG CAPSULE PO SCH ×2 (08:55→20:27)
[2020-01-13] MEDS: GABAPENTIN 400 MG CAP PO SCH ×2 (08:55→20:27)
[2020-01-13] MEDS: FOLIC ACID 1 MG TAB PO SCH ×2 (08:55→20:27)
[2020-01-13] MEDS: methylPREDNISolone INJ 40 MG/1 ML VIAL (J2920) IV SCH (08:55)
[2020-01-13] MEDS: ESCITALOPRAM OXALATE 10 MG TAB (LEXAPRO) PO SCH (08:55)
[2020-01-13] MEDS: TOPIRAMATE (TopAMAX) 100 MG TAB PO SCH ×2 (08:55→20:27)
[2020-01-13] MEDS: VITAMIN D 1,000 INTERNATIONAL UNITS TABLET PO SCH (08:56)
[2020-01-13] MEDS: atenoloL 25 MG TAB PO SCH (08:57)
[2020-01-13] MEDS ORDERED: HYDR200T3 PO (10:23)
[2020-01-13] MEDS ORDERED: METH25IN12 SQ (10:23)
--- NOTE | 2020-01-13 10:31 | IPNPDOC ---
Text Note Date of Service The patient was seen on 01/13/20. NOTE SUBJECTIVE: No fever overnight, says coughing up more phlegm now. No nausea or vomiting or diarrhea. Feeling overall much better. PHYSICAL: General exam: A&Ox3, NAD, resting comfortably on room air HEENT: NCAT, EOMI, MMM, neck supple Cardiac: RRR, normal S1 & S2, no murmurs Respiratory: CTAB, good air exchange, no accessory muscle use, no respiratory distress, bilateral fine crackles noted Abdomen: soft, NT, ND, normoactive bowel sounds Extremity: 2+ radial and dorsalis pedis pulses, no edema or calf tenderness Skin: [place], warm, dry, no visible rash Msk: strength 5/5 x4, normal tone Neuro: normal speech, no focal deficits Psych: Normal mood and affect LABORATORY DATA, MICROBIOLOGY: Please see below. ASSESSMENT AND PLAN: This is a 54-year-old female with PMH Rheumatoid Arthritis, Hypertension, Hypothyroidism, Anxiety/dizziness/depression, IBS, Osteoarthritis, Osteoporosis, Asthma, Nonalcoholic fatty liver disease, Fibromyalgia, Psoriatic arthritis, CKD III, Hx of [place] Palsy presented with gradually worsening shortness of breath in past 5 days with associated dry cough and chest congestion and fevers and chills. She denies any recent sick contacts or travel or any changes in medications. Denies hemoptysis, chest pain, skin rashes, adenopathy or any other symptoms. On presentation is found to have temp of 100.4, normal WBC at 7, normal lactate of 1.4, CTA negative for PE but reveals ground glass opacities in the right lung. She was admitted for pneumonia. She received albuterol inhaler, Solu-Medrol 125mg IV, and po doxycycline 100 mg with improvement. She was admitted for pneumonia. Community acquired pneumonia with mild exacerbation of asthma possibly atypical pneumonia will continue moxifloxacin. albuterol prn, methyl pred. COVID & resp panel neg Procalcitonin normal blood cultures pending acapella, incentive spirometry Hypothyroid synthroid Hypertension atenolol RA/fibromyalgia/psoriatic arthritis gabapentin, HCQS will hold methotrexate for now. Anxiety/depression continue alprazolam, lexapro Will continue her home medications for her chronic medical conditions. VS,Fishbone, I+O VS, Fishbone, I+O Laboratory Tests 01/13/20 05:41 Vital Signs Date Time Temp Pulse Resp B/P (MAP) Pulse Ox O2 Delivery O2 Flow Rate FiO2 01/13/20 08:57 92 122/80 01/13/20 06:00 99.6 18 96 Room Air I&O- Last 24 Hours up to 6 AM 01/13/20 06:00 Intake Total 2160 ml Output Total 1300 ml Balance 860 ml MIO YANG MD Jan 13, 2020 10:31
[2020-01-13 14:00] VITALS: BP 107/53
[2020-01-13] MEDS: LEVOTHYROXINE 100MCG TABLET (0.1MG) PO SCH (18:28)
[2020-01-13] MEDS: MOXIFLOXACIN HCL 400 MG in IV 1 EA IV SCH (20:26)
[2020-01-13] MEDS: ASPIRIN 81 MG ENTERIC TAB PO SCH (20:27)
[2020-01-13] MEDS: HYDROXYCHLOROQUINE 200 MG TAB PO SCH (21:18)
[2020-01-13 22:00] VITALS: BP 129/71
[2020-01-13] MEDS: ACETAMINOPHEN TAB 650MG DOSE (2X325MG) PO PRN (22:40)
[2020-01-14 05:52] LABS: BASO % 0.3 % (0.0-1.0); EOS # 0.1 10^3/uL (0.0-0.5); EOS % 0.7 % (0.0-3.0); HEMATOCRIT 37.1 % (36.0-47.0); HEMOGLOBIN 11.7 g/dl (12.0-15.5); LYMPH # 1.9 10^3/uL (1.5-5.0); LYMPH % 28.7 % (24.0-44.0); MEAN CORPUSCULAR HEMOGLOBIN 29.3 pg (27.0-33.0); MEAN CORPUSCULAR HGB CONC 31.5 g/dl (32.0-36.5); MEAN CORPUSCULAR VOLUME 92.8 fl (80.0-96.0); MONO # 0.4 10^3/uL (0.0-0.8); MONO % 6.5 % (0.0-5.0); NEUTROPHILS # 4.3 10^3/uL (1.5-8.5); NEUTROPHILS % 63.2 % (36.0-66.0); PLATELET COUNT, AUTOMATED 308 10^3/uL (150-450); WHITE BLOOD COUNT 6.8 10^3/uL (4.0-10.0)
[2020-01-14] MEDS: HEPARIN SOD (PORCINE) 5000UNITS/ML VIAL (J1644 PER 1000UNITS) SQ SCH ×3 (05:55→21:01)
[2020-01-14 06:00] VITALS: BP 122/77
[2020-01-14 06:18] LABS: BLOOD UREA NITROGEN 18 MG/DL (7-18); C REACTIVE PROTEIN QUANTITATIV 9.73 MG/DL (0.00-0.30); CALCIUM LEVEL 9.5 MG/DL (8.5-10.1); CARBON DIOXIDE LEVEL 25 MEQ/L (21-32); CHLORIDE LEVEL 111 MEQ/L (98-107); CREATININE FOR GFR 0.98 MG/DL (0.55-1.30); GLOMERULAR FILTRATION RATE > 60.0 (>51); GLUCOSE, FASTING 85 MG/DL (70-100); MAGNESIUM LEVEL 2.1 MG/DL (1.8-2.4); POTASSIUM SERUM 3.8 MEQ/L (3.5-5.1); SODIUM LEVEL 141 MEQ/L (136-145)
[2020-01-14] MEDS ORDERED: MOXI1TAB PO (07:33)
[2020-01-14] MEDS: ESCITALOPRAM OXALATE 10 MG TAB (LEXAPRO) PO SCH (08:49)
[2020-01-14] MEDS: HYDROXYCHLOROQUINE 200 MG TAB PO SCH (08:49)
[2020-01-14] MEDS: FOLIC ACID 1 MG TAB PO SCH ×2 (08:50→21:00)
[2020-01-14] MEDS: OMEGA-3 1000MG CAPSULE PO SCH ×2 (08:53→21:01)
[2020-01-14] MEDS: GABAPENTIN 400 MG CAP PO SCH ×2 (08:53→21:00)
[2020-01-14] MEDS: atenoloL 25 MG TAB PO SCH (08:53)
[2020-01-14] MEDS: VITAMIN D 1,000 INTERNATIONAL UNITS TABLET PO SCH (08:53)
[2020-01-14] MEDS: TOPIRAMATE (TopAMAX) 100 MG TAB PO SCH ×2 (08:53→21:01)
[2020-01-14] MEDS: methylPREDNISolone INJ 40 MG/1 ML VIAL (J2920) IV SCH (08:54)
--- NOTE | 2020-01-14 09:42 | IPNPDOC ---
Text Note Date of Service The patient was seen on 01/14/20. NOTE SUBJECTIVE: No fever overnight, says coughing up more phlegm now so her chest is hurting as she is coughing more. No nausea or vomiting or diarrhea. Feeling better. EKG no qtc prolongation. PHYSICAL: General exam: A&Ox3, NAD, resting comfortably on room air HEENT: NCAT, EOMI, MMM, neck supple Cardiac: RRR, normal S1 & S2, no murmurs Respiratory: CTAB, good air exchange, no accessory muscle use, no respiratory distress, chest clear to auscultation Abdomen: soft, NT, ND, normoactive bowel sounds Extremity: 2+ radial and dorsalis pedis pulses, no edema or calf tenderness Skin: [place], warm, dry, no visible rash Msk: strength 5/5 x4, normal tone Neuro: normal speech, no focal deficits Psych: Normal mood and affect LABORATORY DATA, MICROBIOLOGY: Please see below. ASSESSMENT AND PLAN: This is a 54-year-old female with PMH Rheumatoid Arthritis, Hypertension, Hypothyroidism, Anxiety/dizziness/depression, IBS, Osteoarthritis, Osteoporosis, Asthma, Nonalcoholic fatty liver disease, Fibromyalgia, Psoriatic arthritis, CKD III, Hx of [place] Palsy presented with gradually worsening shortness of breath in past 5 days with associated dry cough and chest congestion and fevers and chills. She denies any recent sick contacts or travel or any changes in medications. Denies hemoptysis, chest pain, skin rashes, adenopathy or any other symptoms. On presentation is found to have temp of 100.4, normal WBC at 7, normal lactate of 1.4, CTA negative for PE but reveals ground glass opacities in the right lung. She was admitted for pneumonia. She received albuterol inhaler, Solu-Medrol 125mg IV, and po doxycycline 100 mg with improvement. She was admitted for pneumonia. Community acquired pneumonia with mild exacerbation of asthma possibly atypical pneumonia will continue moxifloxacin. albuterol prn, methyl pred. COVID & resp panel neg Procalcitonin normal blood cultures pending acapella, incentive spirometry Hypothyroid synthroid Hypertension atenolol RA/fibromyalgia/psoriatic arthritis gabapentin, HCQS Hold HCQS while on avelox for drug interaction. will hold methotrexate for now. Anxiety/depression continue alprazolam, lexapro Will continue her home medications for her chronic medical conditions. VS,Fishbone, I+O VS, Fishbone, I+O Laboratory Tests 01/14/20 05:22 Vital Signs Date Time Temp Pulse Resp B/P (MAP) Pulse Ox O2 Delivery O2 Flow Rate FiO2 01/14/20 08:53 88 124/74 01/14/20 06:00 98.4 16 97 Room Air I&O- Last 24 Hours up to 6 AM 01/14/20 05:59 Intake Total 3360 ml Output Total 1550 ml Balance 1810 ml MIO YANG MD Jan 14, 2020 09:42
[2020-01-14] MEDS: MOXIFLOXACIN 400 MG TAB PO SCH (13:53)
[2020-01-14 14:00] VITALS: BP 129/81
--- NOTE | 2020-01-14 14:49 | ECGEPIP ---
[facility] Test Date: 2020-01-14 Pat Name: CLARY ROLDAN Department: Room: [place] [address] Gender: Female Hanger Off: ANAT : 1965 Requested By: MIO YANG Order Number: [id number] Reading MD: Moise Vu Measurements Intervals [place] Rate: 72 P: 42 NM: 183 QRS: 9 QRSD: 92 T: 29 QT: 381 QTc: 418 Interpretive Statements Normal sinus rhythm Borderline low QRS voltages throughout Nonspecific ST-T wave abnormalities No significant change when compared to prior tracing of 01/11/2020 Electronically Signed on 01-14-2020 14:49:48 EDT by Moise Vu
[2020-01-14] MEDS: LEVOTHYROXINE 100MCG TABLET (0.1MG) PO SCH (17:34)
[2020-01-14] MEDS: ASPIRIN 81 MG ENTERIC TAB PO SCH (21:01)
[2020-01-14 22:00] VITALS: BP 134/86
[2020-01-15] MEDS: HEPARIN SOD (PORCINE) 5000UNITS/ML VIAL (J1644 PER 1000UNITS) SQ SCH (05:34)
[2020-01-15] MEDS: MOXIFLOXACIN 400 MG TAB PO SCH (05:34)
[2020-01-15 05:53] LABS: BASO % 0.2 % (0.0-1.0); EOS # 0.1 10^3/uL (0.0-0.5); EOS % 0.6 % (0.0-3.0); HEMATOCRIT 40.3 % (36.0-47.0); HEMOGLOBIN 12.6 g/dl (12.0-15.5); LYMPH # 2.4 10^3/uL (1.5-5.0); LYMPH % 28.3 % (24.0-44.0); MEAN CORPUSCULAR HEMOGLOBIN 28.8 pg (27.0-33.0); MEAN CORPUSCULAR HGB CONC 31.3 g/dl (32.0-36.5); MEAN CORPUSCULAR VOLUME 92.2 fl (80.0-96.0); MONO # 0.7 10^3/uL (0.0-0.8); MONO % 8.6 % (0.0-5.0); NEUTROPHILS # 5.3 10^3/uL (1.5-8.5); NEUTROPHILS % 61.3 % (36.0-66.0); PLATELET COUNT, AUTOMATED 373 10^3/uL (150-450); RED BLOOD COUNT 4.37 10^6/uL (4.00-5.40); WHITE BLOOD COUNT 8.6 10^3/uL (4.0-10.0)
[2020-01-15 06:00] VITALS: BP 117/60
[2020-01-15 06:14] LABS: BLOOD UREA NITROGEN 17 MG/DL (7-18); CALCIUM LEVEL 9.4 MG/DL (8.5-10.1); CARBON DIOXIDE LEVEL 26 MEQ/L (21-32); CHLORIDE LEVEL 110 MEQ/L (98-107); CREATININE FOR GFR 0.94 MG/DL (0.55-1.30); GLOMERULAR FILTRATION RATE > 60.0 (>51); GLUCOSE, FASTING 85 MG/DL (70-100); MAGNESIUM LEVEL 2.2 MG/DL (1.8-2.4); POTASSIUM SERUM 3.8 MEQ/L (3.5-5.1); SODIUM LEVEL 142 MEQ/L (136-145)
[2020-01-15] MEDS ORDERED: PRED20TA PO (09:33)
[2020-01-15] MEDS: OMEGA-3 1000MG CAPSULE PO SCH (09:51)
[2020-01-15 09:52] VITALS: BP 121/83
[2020-01-15] MEDS: atenoloL 25 MG TAB PO SCH (09:52)
[2020-01-15] MEDS: VITAMIN D 1,000 INTERNATIONAL UNITS TABLET PO SCH (09:53)
[2020-01-15] MEDS: TOPIRAMATE (TopAMAX) 100 MG TAB PO SCH (09:54)
[2020-01-15] MEDS: ACETAMINOPHEN TAB 650MG DOSE (2X325MG) PO PRN (09:54)
[2020-01-15] MEDS: FOLIC ACID 1 MG TAB PO SCH (09:54)
[2020-01-15] MEDS: ESCITALOPRAM OXALATE 10 MG TAB (LEXAPRO) PO SCH (09:54)
[2020-01-15] MEDS: GABAPENTIN 400 MG CAP PO SCH (09:54)
[2020-01-15 14:00] VITALS: BP 118/83
[2020-01-15] MEDS ORDERED: VENTAER INH (14:12)
[2020-01-15] MEDS ORDERED: DIFL150T PO (14:16)
--- NOTE | 2020-01-15 18:16 | DS.PDOC ---
Discharge Summary General Date of Admission Jan 11, 2020 at 19:29 Date of Discharge 01/15/20 Attending Physician: RAVI CARRASQUILLO MD Discharge Summary PROCEDURES PERFORMED DURING STAY: None. ADMITTING DIAGNOSES: 1. Asthma exacerbation, pneumonia. DISCHARGE DIAGNOSES: 1. Asthma exacerbation, pneumonia. COMPLICATIONS/CHIEF COMPLAINT: Dyspnea. HISTORY OF PRESENT ILLNESS: 54-year-old female with past medical history of rheumatoid arthritis, asthma, psoriatic arthritis and fibromyalgia was admitted for pneumonia/asthma exacerbation. Patient has been treated with supportive care and antibiotics, with significant clinical improvement. Patient is back to her baseline. Today, no occult blood at this time, comfortable at rest, ambulating without difficulty. Patient is clinically hemodynamically stable for discharge at this time. HOSPITAL COURSE: As above. DISCHARGE MEDICATIONS: Please see below. ALLERGIES: Please see below. PHYSICAL EXAMINATION: VITAL SIGNS: Please see below. GENERAL: No distress HEENT: Normocephalic, atraumatic, moist mucous membranes NECK: Supple CARDIOVASCULAR EXAMINATION: S1, S2, no murmurs RESPIRATORY EXAMINATION: Clear to auscultation, no wheezing ABDOMINAL EXAMINATION: Soft, nontender, nondistended, positive bowel sounds EXTREMITIES: Range of motion intact SKIN: No rash NEUROLOGICAL EXAMINATION: Alert and oriented 3, no focal deficits PSYCHIATRIC EXAMINATION: Calm and cooperative LABORATORY DATA: Please see below. PROGNOSIS: Fair ACTIVITY: As tolerated]. DIET: [Cardiac] DISCHARGE PLAN: [Follow-up with PCP 1-2 weeks] DISPOSITION: 01 Home, Self-Care. DISCHARGE INSTRUCTIONS: 1. [As above]. DISCHARGE CONDITION: [Stable]. TIME SPENT ON DISCHARGE: Greater than [25] minutes. Vital Signs/I&Os Vital Signs Date Time Temp Pulse Resp B/P (MAP) Pulse Ox O2 Delivery O2 Flow Rate FiO2 01/15/20 14:00 97.8 53 18 118/83 (95) 94 Room Air I&O- Last 24 Hours up to 6 AM 01/15/20 06:00 Intake Total 1710 ml Output Total 2675 ml Balance -965 ml Laboratory Data Labs 24H Laboratory Tests 2 01/15/20 05:22: Immature Granulocyte % (Auto) 1.0, Neutrophils (%) (Auto) 61.3, Lymphocytes (%) (Auto) 28.3, Monocytes (%) (Auto) 8.6H, Eosinophils (%) (Auto) 0.6, Basophils (%) (Auto) 0.2, Neutrophils # (Auto) 5.3, Lymphocytes # (Auto) 2.4, Monocytes # (Auto) 0.7, Eosinophils # (Auto) 0.1, Basophils # (Auto) 0.0, Nucleated Red Blood Cells % (auto) 0.0, Anion Gap 6L, Glomerular Filtration Rate > 60.0, Calcium Level 9.4, Magnesium Level 2.2 CBC/BMP Laboratory Tests 01/15/20 05:22 Microbiology Microbiology 01/12/20 Gram Stain - Final, Complete 01/12/20 Sputum Culture - Final, Complete 01/11/20 Blood Culture - Preliminary, Resulted No Growth after 72 hours. All specime... 01/11/20 Respiratory Panel (PCR) - Final, Complete 01/11/20 Blood Culture - Preliminary, Resulted No Growth after 72 hours. All specime... Discharge Medications Scheduled Aspirin (Aspir 81) 81 Mg Tablet.dr, 81 MG PO QPM, (Reported) Atenolol (Atenolol) 25 Mg Tab, 25 MG PO DAILY, (Reported) Biotin (Biotin) 10 Mg Tab, 10 MG PO DAILY, (Reported) Cholecalciferol (Vitamin D3) (Vitamin D3) 1,000 Unit Tablet, 5,000 UNITS PO DAILY, (Reported) Escitalopram Oxalate (Lexapro) 20 Mg Tablet, 20 MG PO QAM, (Reported) Fluconazole (Diflucan) 150 Mg Tablet, 1 TAB PO ONCE for yeast infection Folic Acid (Folic Acid) 1 Mg Tablet, 1 MG PO BID, (Reported) Gabapentin (Gabapentin) 800 Mg Tablet, 800 MG PO BID, (Reported) Hydroxychloroquine Sulfate (Hydroxychloroquine Sulfate) 200 Mg Tablet, 200 MG PO BID, (Reported) Levothyroxine Sodium (Levothyroxine Sodium) 100 Mcg Tab, 100 MCG PO QPM, (Reported) Lifitegrast (Xiidra) 5% Droperette, 1 DROP OU BID, (Reported) Methotrexate Sodium (Methotrexate) 25 Mg/1 Ml Vial, 0.6 ML SQ QWEEK, (Reported) [place] Milk Thistle (Milk Thistle) 150 Mg Capsule, 150 MG PO QAM, (Reported) [place]-3/Dha/Epa/Fish Oil (Fish Oil EC 1,000 mg Softgel) 1 Cap Cap, 1 CAP PO BID, (Reported) Topiramate (Topiramate) 100 Mg Tab, 100 MG PO BID, (Reported) Vitamin A (Vitamin A) 8,000 Unit Cap, 1 CAP PO DAILY, (Reported) Scheduled PRN Albuterol Sulfate (Ventolin Hfa) 18 Gm Hfa.aer.ad, 2 PUFF INH Q2HP PRN for SHORTNESS OF BREATH 2 puff inhaled every 4-6 hours as needed for SOB Alprazolam (Alprazolam) 0.5 Mg Tablet, 0.5 MG PO Q6H PRN for ANXIETY, (Reported) Hydroxyzine HCl (Hydroxyzine HCl) 10 Mg Tablet, 10 MG PO TID PRN for ITCHING, (Reported) Miscellaneous Medications Epinephrine (Epipen 2-Brad) 0.3 Mg/0.3 Ml Inj, 0.3 MG IM, (Reported) Allergies Coded Allergies: Penicillins (Verified Allergy, Intermediate, questionable, 03/26/19) Sulfa (Sulfonamide Antibiotics) (Verified Allergy, Unknown, anaphylaxis, 03/26/19) clindamycin (Verified Allergy, Unknown, hives, 03/26/19) TAPE (Unverified Adverse Reaction, Unknown, 03/26/19) ciprofloxacin (Verified Adverse Reaction, Unknown, psychological problems, 03/26/19) RAVI CARRASQUILLO MD Jan 15, 2020 18:16
== END 2020-01-15 14:31 | disposition home or self-care (01) | DRG 139 ==
LOC: M ED 14:57 → EDBD 14:57 → M ED INP 19:29 → ENRESERVDT 20:27 → ENRESERVTM 20:27 → M PCU 21:28 → M MSPAV 01-12 11:15
PROVIDERS: ADMIT Internal Medicine; ATTEND Internal Medicine
DX: J18.9 Pneumonia, unspecified organism (principal); J45.901 Unspecified asthma with (acute) exacerbation; N18.3 Chronic kidney disease, stage 3 (moderate); K76.0 Fatty (change of) liver, not elsewhere classified; L40.50 Arthropathic psoriasis, unspecified; I12.9 Hypertensive chronic kidney disease with stage 1 through stage 4 chronic kidney disease, or unspecified chronic kidney disease; M06.9 Rheumatoid arthritis, unspecified; M79.7 Fibromyalgia; Z79.899 Other long term (current) drug therapy; Z79.82 Long term (current) use of aspirin; Z88.0 Allergy status to penicillin; Z88.2 Allergy status to sulfonamides; Z88.8 Allergy status to other drugs, medicaments and biological substances; E03.9 Hypothyroidism, unspecified; F41.9 Anxiety disorder, unspecified; F32.9 Major depressive disorder, single episode, unspecified; M19.90 Unspecified osteoarthritis, unspecified site; M81.0 Age-related osteoporosis without current pathological fracture; Z86.73 Personal history of transient ischemic attack (TIA), and cerebral infarction without residual deficits; Z96.641 Presence of right artificial hip joint; Z96.642 Presence of left artificial hip joint

== ENCOUNTER 2020-05-13 15:26 | Emergency (ER) | payer OTHER ==
[~2020-05-13] VITALS: Ht 172.7 cm; Wt 97.5 kg
[~2020-05-13 15:26] MED LIST changes: +ALPR0.5T3 PO; -ASPI81TA85 PO; +ASPI81TA86 PO; +D31000TA2 PO; +DIFL150T PO; +DOXY100C37 PO; +HYDR200T3; +HYDR200T3 PO; +METH25IN12 SQ; +MILK300C PO; +MOXI1TAB PO; +PROV108A INH; +VENTAER INH
[2020-05-13 17:39] LABS: BASO % 0.7 % (0.0-1.0); EOS % 0.5 % (0.0-3.0); HEMATOCRIT 42.9 % (36.0-47.0); HEMOGLOBIN 14.1 g/dl (12.0-15.5); LYMPH # 2.2 10^3/uL (1.5-5.0); LYMPH % 36.2 % (24.0-44.0); MEAN CORPUSCULAR HEMOGLOBIN 30.8 pg (27.0-33.0); MEAN CORPUSCULAR HGB CONC 32.9 g/dl (32.0-36.5); MEAN CORPUSCULAR VOLUME 93.7 fl (80.0-96.0); MONO # 0.6 10^3/uL (0.0-0.8); MONO % 9.1 % (0.0-5.0); NEUTROPHILS # 3.2 10^3/uL (1.5-8.5); PLATELET COUNT, AUTOMATED 235 10^3/uL (150-450); RED BLOOD COUNT 4.58 10^6/uL (4.00-5.40); WHITE BLOOD COUNT 6.1 10^3/uL (4.0-10.0)
[2020-05-13] MEDS ORDERED: DICYCLOMINE 10 MG CAP PO ONE (18:15)
[2020-05-13 18:17] LABS: ALT/SGPT 24 U/L (12-78); BLOOD UREA NITROGEN 11 MG/DL (7-18); CALCIUM LEVEL 9.4 MG/DL (8.5-10.1); CARBON DIOXIDE LEVEL 28 MEQ/L (21-32); CHLORIDE LEVEL 110 MEQ/L (98-107); CREATININE FOR GFR 1.12 MG/DL (0.55-1.30); GLOMERULAR FILTRATION RATE 53.6 (>51); GLUCOSE, FASTING 80 MG/DL (70-100); POTASSIUM SERUM 4.2 MEQ/L (3.5-5.1); SODIUM LEVEL 140 MEQ/L (136-145)
[2020-05-13 18:18] LABS: ALBUMIN 3.7 GM/DL (3.2-5.2); BILIRUBIN,DIRECT < 0.1 MG/DL (0.0-0.2); BILIRUBIN,TOTAL 0.3 MG/DL (0.2-1.0); LIPASE 280 U/L (73-393); TOTAL PROTEIN 7.1 GM/DL (6.4-8.2)
--- NOTE | 2020-05-13 20:43 | REPVR ---
PROCEDURE INFORMATION: Exam: US Nonobstetric Pelvis; Complete Exam date and time: 05/13/2020 8:08 PM Age: 54 years old Clinical indication: Pelvic pain; Additional info: Rlq pelvic pain, spotting on/off TECHNIQUE: Imaging protocol: Transabdominal pelvic nonobstetric ultrasound. Complete exam. Real time ultrasound with image documentation. COMPARISON: PELVIS NON-OB COMPLETE US 02/02/2016 11:49 AM FINDINGS: Uterus/cervix: Endometrial thickness measures 4 mm. Uterus measures 5.7 x 2.7 x 4.0 cm. Multiple uterine masses, likely fibroids. Posteriorly seen fibroid measuring 6.2 x 4.0 x 5.8 mm. Anterior fibroid measuring 10 x 10 x 13 mm. Mid uterine fibroid measuring 5 x 5 x 6 mm. Right adnexa: Right ovary measures 1.7 x 1.2 x 1.0 cm. Flow to the right ovary was seen. Left adnexa: Left ovary was not visualized. Intraperitoneal space: No free fluid in the cul de sac. Bladder: Normal. IMPRESSION: Multiple uterine masses, likely fibroids. Unremarkable right ovary. Left ovary was not visualized. Electronically signed by: Mikal Wilkerson On 05/13/2020 20:44:04 PM
[2020-05-13 21:14] VITALS: BP 137/85
[2020-05-13] MEDS ORDERED: DICY10CA13 PO (21:19)
== END 2020-05-13 21:24 | disposition home or self-care (01) ==
LOC: M ED 15:26
DX: R10.31 Right lower quadrant pain (principal); N85.8 Other specified noninflammatory disorders of uterus; I10 Essential (primary) hypertension; N80.9 Endometriosis, unspecified; K58.9 Irritable bowel syndrome, unspecified; J45.909 Unspecified asthma, uncomplicated; M79.7 Fibromyalgia; Z86.73 Personal history of transient ischemic attack (TIA), and cerebral infarction without residual deficits; Z79.82 Long term (current) use of aspirin; Z79.899 Other long term (current) drug therapy; Z88.0 Allergy status to penicillin; Z88.2 Allergy status to sulfonamides; Z91.89 Other specified personal risk factors, not elsewhere classified; Z91.030 Bee allergy status; Z88.1 Allergy status to other antibiotic agents

== ENCOUNTER → 2020-07-14 | Outpatient (CLI) | payer OTHER ==
[~2020-07-14] MED LIST changes: +DICY10CA13 PO
--- NOTE | 2020-07-16 06:20 | REP ---
INDICATION: ABM FINDING LUNG FIELD W/ DYSPNEA COMPARISON: 01/11/2020, 08/29/2015 TECHNIQUE: Axial noncontrast images from the thoracic inlet to the upper abdomen with coronal and sagittal reformations. This CT examination was performed using the following dose reduction techniques: Automated exposure control, adjustment of mA and/or kv according to the patient's size, and use of iterative reconstruction technique. FINDINGS: The bilateral lung head are well aerated, relatively symmetric and essentially clear. The previously noted ground-glass opacities have resolved. A small 2 x 4 mm density in the anterior right middle lobe remains stable compared to 2015 and likely represents miniscule scar (image 66). No acute consolidation, further suspicious nodule or mass lesion appreciated. No pleural effusion. No pneumothorax. Tracheobronchial tree is patent. Further evaluation of the mediastinum demonstrates minimal stable atherosclerotic changes to the thoracic aorta and coronary arteries without aortic aneurysm or cardiomegaly. No pericardial effusion. No significant adenopathy noted. Surrounding musculoskeletal structures are intact. Limited upper abdomen demonstrates normal bilateral adrenal glands and evidence for prior cholecystectomy. IMPRESSION: No acute mediastinal or pleuroparenchymal process appreciated. Previously noted ground-glass opacities have resolved. <Electronically signed by Ash Jo > 07/16/20 [id number]
== END ==
LOC: M RAD 13:01
PROVIDERS: ATTEND Physician Assistant
DX: R91.8 Other nonspecific abnormal finding of lung field (principal); R06.00 Dyspnea, unspecified

== ENCOUNTER → 2020-09-05 | Outpatient (REF) | payer OTHER | LOC: M SFHCPLAZ 17:15 | PROVIDERS: ATTEND Physician Assistant | DX: R30.0 Dysuria (principal) ==

== ENCOUNTER → 2020-12-03 | Outpatient (CLI) | payer OTHER ==
[2020-12-03 12:22] LABS: BASO % 0.5 % (0.0-1.0); EOS # 0.1 10^3/uL (0.0-0.5); EOS % 0.9 % (0.0-3.0); HEMATOCRIT 46.2 % (36.0-47.0); HEMOGLOBIN 14.3 g/dl (12.0-15.5); LYMPH % 34.9 % (24.0-44.0); MEAN CORPUSCULAR HEMOGLOBIN 29.4 pg (27.0-33.0); MEAN CORPUSCULAR VOLUME 94.9 fl (80.0-96.0); MONO # 0.7 10^3/uL (0.0-0.8); MONO % 11.2 % (2.0-8.0); NEUTROPHILS % 52.2 % (36.0-66.0); PLATELET COUNT, AUTOMATED 255 10^3/uL (150-450); RED BLOOD COUNT 4.87 10^6/uL (4.00-5.40); WHITE BLOOD COUNT 5.8 10^3/uL (4.0-10.0)
[2020-12-03 12:46] LABS: ERYTHROCYTE SEDIMENTATION RATE 1 mm/hr (0-30)
[2020-12-03 12:53] LABS: ALBUMIN 3.7 GM/DL (3.2-5.2); BILIRUBIN,TOTAL 0.2 MG/DL (0.2-1.0); C REACTIVE PROTEIN QUANTITATIV 0.3 MG/DL (0.00-0.30); CALCIUM LEVEL 9.4 MG/DL (8.5-10.1); CREATININE FOR GFR 1.09 MG/DL (0.55-1.30); GLOMERULAR FILTRATION RATE 55.1 (>51); POTASSIUM SERUM 4.1 MEQ/L (3.5-5.1); TOTAL PROTEIN 6.5 GM/DL (6.4-8.2)
== END ==
LOC: M LAB 11:26
PROVIDERS: ATTEND Nurse Practitioner Family
DX: M05.79 Rheumatoid arthritis with rheumatoid factor of multiple sites without organ or systems involvement (principal)

== ENCOUNTER → 2020-12-03 | Outpatient (REF) | payer OTHER ==
[2020-12-03 12:31] LABS: APPEARANCE, URINE CLEAR (CLEAR); BACTERIA, URINE AUTO NEGATIVE (NEGATIVE); BILIRUBIN, URINE AUTO NEGATIVE (NEGATIVE); BLOOD, URINE BLOOD NEGATIVE (NEGATIVE); COLOR, URINE YELLOW (YELLOW); GLUCOSE, URINE (UA) AUTO NEGATIVE (NEGATIVE); KETONE, URINE AUTO NEGATIVE (NEGATIVE); LEUKOCYTE ESTERASE, URINE AUTO TRACE (NEGATIVE); NITRITE, URINE AUTO NEGATIVE (NEGATIVE); PROTEIN, URINE AUTO NEGATIVE (NEGATIVE); RBC, URINE AUTO 1 /HPF (0-3); SPECIFIC GRAVITY URINE AUTO 1.012 (1.002-1.035); SQUAMOUS EPITHELIAL CELL UR AU 1 /HPF (0-6); UROBILINOGEN, URINE AUTO 0.2 mg/dL (0.0-2.0); WBC, URINE AUTO 8 /HPF (0-3)
== END ==
LOC: M SMT 11:06
PROVIDERS: ATTEND Nurse Practitioner Women's Health
DX: R39.15 Urgency of urination (principal)

== ENCOUNTER → 2021-01-05 | Outpatient (CLI) | payer OTHER ==
[~2021-01-05] MED LIST changes: +ACYC1TAB PO; -ACYC400T PO
== END ==
LOC: M WHC 15:29
PROVIDERS: ATTEND Obstetrics & Gynecology
DX: N39.41 Urge incontinence (principal); Z12.4 Encounter for screening for malignant neoplasm of cervix

== ENCOUNTER → 2021-01-26 | Outpatient (CLI) | payer OTHER ==
[~2021-01-26] MED LIST changes: +GABA-283 PO; -GABA-845 PO
--- NOTE | 2021-01-26 14:15 | REPMRS ---
Patient History The patient states she has not had a clinical breast exam in over a year. Patient is postmenopausal. Family history of prostate cancer at age 70 in father. Explants from both breasts, 2005. Silicone gel implants in both breasts, 1984. No Hormone Replacement Therapy Patient states no breast complaints today. Patient has signed MRS History Sheet. Digital Woman Screen Mammo: January 26, 2021 - Exam #: [id number] Bilateral CC and MLO view(s) were taken. Technologist: Tori Estrada, Technologist Prior study comparison: April 04, 2017, digital woman screen mammo performed at [facility]. FINDINGS: There are scattered fibroglandular densities. Screening. Digital screening (2D) mammography was performed bilaterally in the CC and MLO projections. Additionally, breast tomosynthesis (3D mammography) was performed bilaterally in the CC and MLO projections. Todays exam was compared to the prior exams(s).There are no prior DBT images for comparison. By history, the patient has no complaints of a palpable breast abnormality or other significant breast complaints. The breasts are unchanged in size and shape.There is stable post-procedural internal architectural distortion. There are no afshan-soft tissue densities or spiculated masses. .Once again, stable benign appearing calcifications are seen. There are no suspicious afshan-calcific clusters. Skin thickening or nipple retraction is not present. IMPRESSION: BI-RADS Category 2- Benign Findings(s). There is no evidence of malignant alteration of the breasts. Followup examination recommended in one year. The Volpara volumetric breast density category is B, there are scattered areas of fibroglandular density. This mammogram was read with the assistance of [facility] [employer],an FDA approved computer aided detection system for mammography. The lifetime Tyrer-Cuzick score is 5.6 % Negative x-ray reports should not delay surgical consultation if a dominant or clinically suspicious mass is present. Not all breast cancers can be identified by mammography. Therefore, we recommend that you continue to perform regular breast self-examination and physical examination and then promptly contact your physician of any concerns or changes. Adenosis and dense breasts may obscure an underlying neoplasm. Assessment: BI-RADS/ACR category 2 mammogram. Benign Findings. Recommendation Routine screening mammogram of both breasts in 1 year. Electronically Signed By: Juan Oliva DO 01/26/21 [id number]
== END ==
LOC: M WHC 12:57
PROVIDERS: ATTEND Obstetrics & Gynecology
DX: Z12.31 Encounter for screening mammogram for malignant neoplasm of breast (principal); Z80.42 Family history of malignant neoplasm of prostate; Z98.82 Breast implant status

== ENCOUNTER → 2021-02-09 | Outpatient (REF) | payer OTHER | LOC: M PLALAB 14:13 | PROVIDERS: ATTEND Obstetrics & Gynecology | DX: R32 Unspecified urinary incontinence (principal); N95.0 Postmenopausal bleeding ==

== ENCOUNTER → 2021-04-14 | Outpatient (CLI) | payer OTHER ==
[~2021-04-14] MED LIST changes: -DOXY100C37 PO; +DOXY1CAP62 PO; -HYDR1CRE93 TOP; +HYDR28CR33 TOP; +OMEP40CA4 PO; -OMEP40CA97 PO
[2021-04-14 14:55] LABS: BASO % 0.6 % (0.0-1.0); EOS # 0.1 10^3/uL (0.0-0.5); EOS % 1.8 % (0.0-3.0); HEMATOCRIT 49.6 % (36.0-47.0); HEMOGLOBIN 15.5 g/dl (12.0-15.5); LYMPH # 1.7 10^3/uL (1.5-5.0); LYMPH % 34.1 % (24.0-44.0); MEAN CORPUSCULAR HEMOGLOBIN 28.1 pg (27.0-33.0); MEAN CORPUSCULAR HGB CONC 31.3 g/dl (32.0-36.5); MONO # 0.6 10^3/uL (0.0-0.8); MONO % 12.6 % (2.0-8.0); NEUTROPHILS # 2.5 10^3/uL (1.5-8.5); NEUTROPHILS % 50.5 % (36.0-66.0); PLATELET COUNT, AUTOMATED 257 10^3/uL (150-450); RED BLOOD COUNT 5.51 10^6/uL (4.00-5.40)
[2021-04-14 15:26] LABS: ALBUMIN 3.7 GM/DL (3.2-5.2); BILIRUBIN,TOTAL 0.3 MG/DL (0.2-1.0); CALCIUM LEVEL 9.9 MG/DL (8.5-10.1); CREATININE FOR GFR 1.11 MG/DL (0.55-1.30); GLOMERULAR FILTRATION RATE 53.9 (>51); POTASSIUM SERUM 4.3 MEQ/L (3.5-5.1)
== END ==
LOC: M LAB 13:54
PROVIDERS: ATTEND Nurse Practitioner Family
DX: M05.79 Rheumatoid arthritis with rheumatoid factor of multiple sites without organ or systems involvement (principal)

== ENCOUNTER → 2021-04-14 | Outpatient (CLI) | payer OTHER ==
[2021-04-14 15:46] LABS: ALBUMIN 3.7 GM/DL (3.2-5.2); ALT/SGPT 25 U/L (12-78); BILIRUBIN,TOTAL 0.3 MG/DL (0.2-1.0); BLOOD UREA NITROGEN 11 MG/DL (7-18); CALCIUM LEVEL 9.8 MG/DL (8.5-10.1); CARBON DIOXIDE LEVEL 27 MEQ/L (21-32); CHLORIDE LEVEL 110 MEQ/L (98-107); CHOLESTEROL LEVEL 266 MG/DL (<200); CREATININE FOR GFR 1.11 MG/DL (0.55-1.30); FOLATE > 24.0 NG/ML (>5.4); GLOMERULAR FILTRATION RATE 53.9 (>51); GLUCOSE, FASTING 94 MG/DL (70-100); HDL CHOLESTEROL 95 MG/DL (>40); LDL CHOLESTEROL 143 MG/DL (<100); NON-HDL-C 171 MG/DL; POTASSIUM SERUM 4.2 MEQ/L (3.5-5.1); SODIUM LEVEL 142 MEQ/L (136-145); TOTAL PROTEIN 7.3 GM/DL (6.4-8.2); TRIGLYCERIDES LEVEL 140 MG/DL (<150); VITAMIN B12 LEVEL 370 PG/ML (247-911)
== END ==
LOC: M LAB 13:58
PROVIDERS: ATTEND Internal Medicine
DX: E03.9 Hypothyroidism, unspecified (principal); R20.2 Paresthesia of skin; R63.0 Anorexia; M06.9 Rheumatoid arthritis, unspecified; Z13.220 Encounter for screening for lipoid disorders

== ENCOUNTER 2021-06-28 07:45 | Emergency (ER) | payer OTHER ==
[~2021-06-28] VITALS: Ht 172.7 cm; Wt 93.3 kg
[2021-06-28] MEDS ORDERED: ONDANSETRON 4 MG ORAL DISINTEGRATING TAB PO ONE (09:25)
[2021-06-28] MEDS ORDERED: KETOROLAC 30 MG/ML 1ML VIAL IM ONE (09:25)
[2021-06-28] MEDS ORDERED: PROM25TA12 PO (10:25)
[2021-06-28] MEDS ORDERED: KETO10TAB PO (10:25)
[2021-06-28 10:40] VITALS: BP 142/72
== END 2021-06-28 10:41 | disposition home or self-care (01) ==
LOC: M ED 07:45
DX: R51.9 Headache, unspecified (principal); R11.0 Nausea; T50.Z95A Adverse effect of other vaccines and biological substances, initial encounter; F12.10 Cannabis abuse, uncomplicated; Z79.82 Long term (current) use of aspirin; Z79.899 Other long term (current) drug therapy; Z88.0 Allergy status to penicillin; Z88.2 Allergy status to sulfonamides; Z88.1 Allergy status to other antibiotic agents; Z91.89 Other specified personal risk factors, not elsewhere classified; Z91.030 Bee allergy status
CPT/HCPCS: 96372; 99283; J1885; Q0162

== ENCOUNTER → 2021-08-10 | Outpatient (CLI) | payer OTHER ==
[~2021-08-10] MED LIST changes: +DOXY-443 PO; -DOXY1CAP62 PO; +KETO10TAB PO; +PROM25TA12 PO
[2021-08-10 18:23] LABS: HEMOGLOBIN A1c 5.4 %
[2021-08-10 18:30] LABS: TOTAL PROTEIN 6.9 GM/DL (6.4-8.2)
[2021-08-11 13:53] LABS: FOLATE > 24.0 NG/ML; TOTAL 25(OH) VITAMIN D 56.2 NG/ML (30.0-100.0); VITAMIN B12 LEVEL 284 PG/ML
== END ==
LOC: M LAB 16:01
PROVIDERS: ATTEND Psychiatry & Neurology Neurology
DX: R53.1 Weakness (principal); R20.0 Anesthesia of skin; E11.9 Type 2 diabetes mellitus without complications

== ENCOUNTER → 2021-09-10 | Outpatient (REF) | payer OTHER | LOC: M SMT 12:58 | PROVIDERS: ATTEND Urology | DX: Z87.440 Personal history of urinary (tract) infections (principal) ==

== ENCOUNTER 2021-09-28 07:46 | Observation (INO) | payer OTHER ==
[~2021-09-28] VITALS: Ht 172.7 cm; Wt 93.2 kg
[2021-09-28] MEDS ORDERED: METH25IN12 SC (08:10)
[2021-09-28] MEDS ORDERED: ATEN25TA PO (08:10)
[2021-09-28] MEDS ORDERED: OMEP-173 PO (08:10)
[2021-09-28] MEDS ORDERED: METH-855 PO (08:10)
[2021-09-28 08:39] LABS: BASO % 0.7 % (0.0-1.0); EOS % 0.2 % (0.0-3.0); HEMATOCRIT 45.3 % (36.0-47.0); HEMOGLOBIN 14.6 g/dl (12.0-15.5); LYMPH # 1.6 10^3/uL (1.5-5.0); LYMPH % 28.1 % (24.0-44.0); MEAN CORPUSCULAR HEMOGLOBIN 28.4 pg (27.0-33.0); MEAN CORPUSCULAR HGB CONC 32.2 g/dl (32.0-36.5); MEAN CORPUSCULAR VOLUME 88.1 fl (80.0-96.0); MONO # 0.7 10^3/uL (0.0-0.8); MONO % 11.9 % (2.0-8.0); NEUTROPHILS # 3.4 10^3/uL (1.5-8.5); NEUTROPHILS % 58.9 % (36.0-66.0); PLATELET COUNT, AUTOMATED 235 10^3/uL (150-450); RED BLOOD COUNT 5.14 10^6/uL (4.00-5.40); WHITE BLOOD COUNT 5.8 10^3/uL (4.0-10.0)
[2021-09-28] MEDS: HYDROMORPHONE HCL 0.5 MG/ 0.5 ML SYRINGE (J1170 PER 1) IV PRN ×2 (08:47→09:48)
[2021-09-28 09:02] LABS: CALCIUM LEVEL 9.4 MG/DL (8.5-10.1); CREATININE FOR GFR 1.08 MG/DL (0.55-1.30); GLOMERULAR FILTRATION RATE 55.5 (>51); POTASSIUM SERUM 4.5 MEQ/L (3.5-5.1)
[2021-09-28] MEDS ORDERED: KETOROLAC 30 MG/ML 1ML VIAL IV ONE (09:30)
[2021-09-28] MEDS ORDERED: LIDOCAINE 1% SDV 30ML VIAL SC SCH (10:10)
[2021-09-28] MEDS ORDERED: CYCLOBENZAPRINE 10MG TABLET PO ONE (11:15)
[2021-09-28] MEDS ORDERED: LIDOCAINE 1% MDV 20ML VIAL SC ONE (12:20)
[2021-09-28] MEDS ORDERED: NS 1,000 ML IV SCH ×2 (12:20→15:35)
[2021-09-28] MEDS ORDERED: D5W/0.45% SODIUM CHLORIDE 1,000 ML IV SCH (12:35)
[2021-09-28 13:32] LABS: RSV AMPLIFICATION NEGATIVE (NEGATIVE)
[2021-09-28] MEDS ORDERED: ASPI81TA26 PO (14:06)
[2021-09-28] MEDS ORDERED: LEXA1TAB2 PO (14:06)
[2021-09-28] MEDS ORDERED: A-10CAP2 PO (14:06)
[2021-09-28] MEDS ORDERED: LEVO112T2 PO (14:06)
[2021-09-28] MEDS ORDERED: HOME MED LIST COMPLETE! XX SCH (14:10)
[2021-09-28] MEDS ORDERED: PERCOCET 5MG/325MG TAB PO ONE (15:35)
[2021-09-28] MEDS ORDERED: PERCOCET 5MG/325MG TAB PO PRN (15:35)
[2021-09-28 16:00] VITALS: BP 128/89
[2021-09-28] MEDS: KETOROLAC 30 MG/ML 1ML VIAL IV SCH ×2 (16:03→22:00)
[2021-09-28 22:00] VITALS: BP 146/93
[2021-09-28] MEDS: CYCLOBENZAPRINE 10MG TABLET PO SCH (22:00)
[2021-09-28 22:43] LABS: INR 0.99; PROTHROMBIN TIME 13.5 SECONDS (12.7-14.5)
[2021-09-29] MEDS: D5W/0.45% SODIUM CHLORIDE 1,000 ML IV SCH ×2 (04:59→14:23)
[2021-09-29] MEDS: KETOROLAC 30 MG/ML 1ML VIAL IV SCH (04:59)
[2021-09-29 06:00] VITALS: BP 111/82
[2021-09-29] MEDS: PERCOCET 5MG/325MG TAB PO PRN ×2 (09:34→19:43)
[2021-09-29] MEDS ORDERED: BUPIVACAINE/EPIN 0.25% 30 ML VIAL As Ordered ONE (10:29)
[2021-09-29] MEDS ORDERED: ROCURONIUM BROMIDE 50 MG/5 ML VIAL As Ordered ONE ×2 (10:34→11:21)
[2021-09-29] MEDS ORDERED: dexameTHASONE 4 MG/ML 1ML VIAL (J1100 PER 1MG) As Ordered ONE ×2 (10:34→11:20)
[2021-09-29] MEDS ORDERED: propofoL 200 MG/20 ML VIAL As Ordered ONE ×2 (10:34→11:21)
[2021-09-29] MEDS ORDERED: ONDANSETRON 4MG/2ML VIAL As Ordered ONE ×2 (10:34→11:20)
[2021-09-29] MEDS ORDERED: LIDOCAINE 2% 100MG/5ML SDV (FOR ANES.) As Ordered ONE ×2 (10:34→11:21)
[2021-09-29] MEDS ORDERED: fentaNYL 250 MCG/5 ML INJECTION (J3010) As Ordered ONE (10:35)
[2021-09-29] MEDS ORDERED: MIDAZOLAM INJ 2MG/2ML VIAL (J2250 PER 1MG) As Ordered ONE (10:35)
[2021-09-29] MEDS ORDERED: SUGAMMADEX SODIUM 500 MG/5 ML VIAL (BRIDION) As Ordered ONE (11:20)
[2021-09-29] MEDS ORDERED: fentaNYL 100 MCG/2 ML INJECTION (J3010) As Ordered ONE (11:20)
[2021-09-29] MEDS ORDERED: ceFAZolin 2 GM/D5W 50 ML IV BAG (J0690 PER 500MG) As Ordered ONE (13:54)
[2021-09-29] MEDS ORDERED: METOCLOPRAMIDE INJ 10MG/2ML VIAL (J2765 PER 1) As Ordered ONE (14:29)
[2021-09-29] MEDS ORDERED: HYDROmorphone HCL 2MG/ML 1ML VIAL As Ordered ONE (14:35)
[2021-09-29] MEDS ORDERED: KETOROLAC 60MG 2ML VIAL As Ordered ONE (14:35)
[2021-09-29] MEDS ORDERED: oxyCODONE 5MG TAB PO PRN (15:30)
[2021-09-29] MEDS ORDERED: ONDANSETRON 4MG/2ML VIAL IV PRN (15:30)
[2021-09-29] MEDS ORDERED: LR 1,000 ML IV SCH (15:30)
[2021-09-29] MEDS ORDERED: fentaNYL 100 MCG/2 ML INJECTION (J3010) IV PRN (15:30)
[2021-09-29] MEDS ORDERED: HYDROMORPHONE HCL 0.5 MG/ 0.5 ML SYRINGE (J1170 PER 1) IV PRN (15:30)
[2021-09-29 16:05] VITALS: BP 163/86
[2021-09-29 16:35] VITALS: BP 157/88
[2021-09-29 17:05] VITALS: BP 156/88
[2021-09-29 18:00] VITALS: BP 155/100
[2021-09-29] MEDS ORDERED: OMEPRAZOLE 20 MG CAP PO PRN (18:45)
[2021-09-29] MEDS ORDERED: hydrOXYzine 10 MG TAB PO PRN (18:45)
[2021-09-29] MEDS ORDERED: ALPRAZolam 0.5 MG TAB PO PRN (18:45)
[2021-09-29] MEDS ORDERED: amLODIPine 5 MG TAB PO ONE (18:50)
[2021-09-29] MEDS ORDERED: ENOXAPARIN 40MG/0.4ML SYRINGE (J1650 PER 10MG) SC ONE (18:50)
[2021-09-29] MEDS: CYCLOBENZAPRINE 10MG TABLET PO SCH (20:06)
[2021-09-29] MEDS ORDERED: ASPIRIN 81MG ENTERIC TABLET PO SCH (21:00)
[2021-09-29 22:00] VITALS: BP 157/101
[2021-09-30 06:00] VITALS: BP 157/100
[2021-09-30] MEDS ORDERED: LEVOTHYROXINE 112MCG TABLET (0.112MG) PO SCH (06:00)
[2021-09-30 06:14] LABS: HEMATOCRIT 44.6 % (36.0-47.0); HEMOGLOBIN 14.1 g/dl (12.0-15.5); MEAN CORPUSCULAR HEMOGLOBIN 28.7 pg (27.0-33.0); MEAN CORPUSCULAR HGB CONC 31.6 g/dl (32.0-36.5); MEAN CORPUSCULAR VOLUME 90.8 fl (80.0-96.0); PLATELET COUNT, AUTOMATED 238 10^3/uL (150-450); RED BLOOD COUNT 4.91 10^6/uL (4.00-5.40); WHITE BLOOD COUNT 9.2 10^3/uL (4.0-10.0)
[2021-09-30 06:45] VITALS: BP 130/85
[2021-09-30 06:46] LABS: BLOOD UREA NITROGEN 10 MG/DL (7-18); CALCIUM LEVEL 9.1 MG/DL (8.5-10.1); CARBON DIOXIDE LEVEL 25 MEQ/L (21-32); CHLORIDE LEVEL 106 MEQ/L (98-107); CREATININE FOR GFR 0.97 MG/DL (0.55-1.30); GLOMERULAR FILTRATION RATE > 60.0 (>51); GLUCOSE, FASTING 90 MG/DL (70-100); MAGNESIUM LEVEL 2.3 MG/DL (1.8-2.4); PHOSPHORUS LEVEL 3.4 MG/DL (2.5-4.9); POTASSIUM SERUM 4.5 MEQ/L (3.5-5.1); SODIUM LEVEL 139 MEQ/L (136-145)
[2021-09-30 08:20] VITALS: BP 130/85
[2021-09-30] MEDS: PERCOCET 5MG/325MG TAB PO PRN (08:21)
[2021-09-30] MEDS ORDERED: amLODIPine 5 MG TAB PO SCH (09:00)
[2021-09-30] MEDS ORDERED: ENOXAPARIN 40MG/0.4ML SYRINGE (J1650 PER 10MG) SC SCH (09:00)
[2021-09-30] MEDS ORDERED: atenoloL 25 MG TAB PO SCH (09:00)
[2021-09-30] MEDS ORDERED: HYDROXYCHLOROQUINE 200 MG TAB PO SCH (09:00)
[2021-09-30] MEDS ORDERED: FOLIC ACID 1 MG TAB PO SCH (09:00)
[2021-09-30] MEDS ORDERED: ESCITALOPRAM OXALATE 10 MG TAB (LEXAPRO) PO SCH (09:00)
[2021-09-30] MEDS ORDERED: PERCOCET PO (10:48)
[2021-09-30] MEDS ORDERED: AMLO1TAB24 PO (10:48)
== END 2021-09-30 13:25 | disposition home or self-care (01) ==
LOC: M ED 07:46 → M ED INP 07:47 → ENRESERV 15:20 → M MS5PR 15:20
PROVIDERS: ADMIT General Practice; ATTEND Internal Medicine
DX: S52.571A Other intraarticular fracture of lower end of right radius, initial encounter for closed fracture (principal); W00.0XXA Fall on same level due to ice and snow, initial encounter; Y93.K1 Activity, walking an animal; Y92.480 Sidewalk as the place of occurrence of the external cause; Y99.9 Unspecified external cause status; I10 Essential (primary) hypertension; E03.9 Hypothyroidism, unspecified; F41.9 Anxiety disorder, unspecified; F50.2 Bulimia nervosa; F32.9 Major depressive disorder, single episode, unspecified; K58.8 Other irritable bowel syndrome; M81.0 Age-related osteoporosis without current pathological fracture; K21.9 Gastro-esophageal reflux disease without esophagitis; M79.7 Fibromyalgia; M06.9 Rheumatoid arthritis, unspecified; Z88.2 Allergy status to sulfonamides; Z88.8 Allergy status to other drugs, medicaments and biological substances; Z87.891 Personal history of nicotine dependence; Z79.82 Long term (current) use of aspirin; Z79.899 Other long term (current) drug therapy
CPT/HCPCS: 25608; 36415; 72040; 73090; 73100; 73110; 76000; 80048; 83735; 84100; 85025; 85027; 85610; 87631; 96372; 96374; 96375; 96376; 99284; C1713; J0690; J1100; J1170; J1650; J1885; J2250; J2405; J2765; J3010

== ENCOUNTER → 2021-10-21 | Outpatient (CLI) | payer OTHER ==
[~2021-10-21] MED LIST changes: +A-10CAP2 PO; +AMLO1TAB24 PO; +ASPI81TA26 PO; +LEVO112T2 PO; +METH-855 PO; +METH25IN12 SC; +OMEP-173 PO; +PERCOCET PO
== END ==
LOC: M SOG 09:50
PROVIDERS: ATTEND Orthopaedic Surgery
DX: S52.571D Other intraarticular fracture of lower end of right radius, subsequent encounter for closed fracture with routine healing (principal); X58.XXXD Exposure to other specified factors, subsequent encounter; Y92.9 Unspecified place or not applicable; Y93.9 Activity, unspecified; Y99.9 Unspecified external cause status

== ENCOUNTER → 2021-11-11 | Outpatient (CLI) | payer OTHER | LOC: M SOG 08:04 | PROVIDERS: ATTEND Orthopaedic Surgery | DX: Z47.89 Encounter for other orthopedic aftercare (principal); S52.571D Other intraarticular fracture of lower end of right radius, subsequent encounter for closed fracture with routine healing ==

== ENCOUNTER → 2021-11-18 | Outpatient (CLI) | payer OTHER ==
[~2021-11-18] MED LIST changes: -D31000TA2 PO; +VITA100093 PO
== END ==
LOC: M WHC 10:04
PROVIDERS: ATTEND Orthopaedic Surgery
DX: S52.571D Other intraarticular fracture of lower end of right radius, subsequent encounter for closed fracture with routine healing (principal); M81.0 Age-related osteoporosis without current pathological fracture

== ENCOUNTER → 2021-12-21 | Outpatient (REF) | payer OTHER | LOC: M SFHCPLAZ 09:07 | PROVIDERS: ATTEND Family Medicine | DX: E03.2 Hypothyroidism due to medicaments and other exogenous substances (principal); Z13.220 Encounter for screening for lipoid disorders; Z53.9 Procedure and treatment not carried out, unspecified reason ==

== ENCOUNTER → 2022-02-19 | Outpatient (CLI) | payer OTHER ==
[2022-02-19 12:37] LABS: CHOLESTEROL RISK RATIO 2.569 (<5); THYROID STIMULATING HORMONE 13.6 uIU/ML (0.358-3.740)
== END ==
LOC: M LAB 11:03
PROVIDERS: ATTEND Family Medicine
DX: E03.2 Hypothyroidism due to medicaments and other exogenous substances (principal); Z13.220 Encounter for screening for lipoid disorders

== ENCOUNTER → 2022-02-19 | Outpatient (CLI) | payer OTHER ==
[2022-02-19 11:57] LABS: BASO # 0.1 10^3/uL (0.0-0.2); EOS % 0.6 % (0.0-3.0); HEMATOCRIT 43.5 % (36.0-47.0); HEMOGLOBIN 13.9 g/dl (12.0-15.5); LYMPH # 2.6 10^3/uL (1.5-5.0); LYMPH % 49.7 % (24.0-44.0); MEAN CORPUSCULAR VOLUME 90.6 fl (80.0-96.0); MONO # 0.7 10^3/uL (0.0-0.8); MONO % 12.6 % (2.0-8.0); NEUTROPHILS # 1.9 10^3/uL (1.5-8.5); NEUTROPHILS % 35.9 % (36.0-66.0); PLATELET COUNT, AUTOMATED 204 10^3/uL (150-450); WHITE BLOOD COUNT 5.3 10^3/uL (4.0-10.0)
[2022-02-19 12:31] LABS: ALBUMIN 3.5 GM/DL (3.2-5.2); BILIRUBIN,TOTAL 0.2 MG/DL (0.2-1.0); CALCIUM LEVEL 8.7 MG/DL (8.5-10.1); CREATININE FOR GFR 1.06 MG/DL (0.55-1.30); GLOMERULAR FILTRATION RATE 56.7 (>51); POTASSIUM SERUM 4.3 MEQ/L (3.5-5.1); TOTAL PROTEIN 6.5 GM/DL (6.4-8.2)
[2022-02-19 12:36] LABS: FOLATE 11.7 NG/ML
== END ==
LOC: M LAB 11:06
PROVIDERS: ATTEND Psychiatry & Neurology Neurology
DX: E53.8 Deficiency of other specified B group vitamins (principal)

== ENCOUNTER → 2022-03-03 | Outpatient (CLI) | payer OTHER ==
[2022-03-03 11:30] LABS: BASO % 0.7 % (0.0-1.0); EOS % 0.5 % (0.0-3.0); HEMOGLOBIN 14.4 g/dl (12.0-15.5); LYMPH # 2.6 10^3/uL (1.5-5.0); MEAN CORPUSCULAR HEMOGLOBIN 28.9 pg (27.0-33.0); MEAN CORPUSCULAR VOLUME 90.2 fl (80.0-96.0); MONO # 0.7 10^3/uL (0.0-0.8); MONO % 11.8 % (2.0-8.0); NEUTROPHILS # 2.3 10^3/uL (1.5-8.5); NEUTROPHILS % 40.8 % (36.0-66.0); PLATELET COUNT, AUTOMATED 240 10^3/uL (150-450); RED BLOOD COUNT 4.99 10^6/uL (4.00-5.40); WHITE BLOOD COUNT 5.7 10^3/uL (4.0-10.0)
[2022-03-03 12:04] LABS: ALBUMIN 3.7 GM/DL (3.2-5.2); BILIRUBIN,TOTAL 0.3 MG/DL (0.2-1.0); CALCIUM LEVEL 9.5 MG/DL (8.5-10.1); CREATININE FOR GFR 1.05 MG/DL (0.55-1.30); GLOMERULAR FILTRATION RATE 57.3 (>51); POTASSIUM SERUM 4.7 MEQ/L (3.5-5.1); TOTAL PROTEIN 6.6 GM/DL (6.4-8.2)
== END ==
LOC: M LAB 10:34
PROVIDERS: ATTEND Nurse Practitioner Family
DX: M05.79 Rheumatoid arthritis with rheumatoid factor of multiple sites without organ or systems involvement (principal)

== ENCOUNTER 2022-03-24 13:52 | Emergency (ER) | payer OTHER ==
[~2022-03-24] VITALS: Ht 172.7 cm; Wt 97.3 kg
[2022-03-24] MEDS ORDERED: FAMOTIDINE 20MG/2ML VIAL IVP ONE (15:25)
[2022-03-24 15:56] LABS: BASO % 0.6 % (0.0-1.0); EOS % 0.5 % (0.0-3.0); HEMATOCRIT 46.6 % (36.0-47.0); HEMOGLOBIN 14.7 g/dl (12.0-15.5); LYMPH # 2.8 10^3/uL (1.5-5.0); LYMPH % 45.7 % (24.0-44.0); MEAN CORPUSCULAR HEMOGLOBIN 28.2 pg (27.0-33.0); MEAN CORPUSCULAR HGB CONC 31.5 g/dl (32.0-36.5); MEAN CORPUSCULAR VOLUME 89.4 fl (80.0-96.0); MONO # 0.7 10^3/uL (0.0-0.8); NEUTROPHILS # 2.6 10^3/uL (1.5-8.5); PLATELET COUNT, AUTOMATED 227 10^3/uL (150-450); RED BLOOD COUNT 5.21 10^6/uL (4.00-5.40); WHITE BLOOD COUNT 6.2 10^3/uL (4.0-10.0)
[2022-03-24 16:25] LABS: ALBUMIN 3.9 GM/DL (3.2-5.2); ALT/SGPT 31 U/L (12-78); BILIRUBIN,DIRECT < 0.1 MG/DL (0.0-0.2); BILIRUBIN,TOTAL 0.3 MG/DL (0.2-1.0); LIPASE 384 U/L (73-393); TOTAL PROTEIN 6.8 GM/DL (6.4-8.2)
[2022-03-24 17:36] LABS: BLOOD UREA NITROGEN 13 MG/DL (7-18); CALCIUM LEVEL 9.2 MG/DL (8.5-10.1); CARBON DIOXIDE LEVEL 29 MEQ/L (21-32); CHLORIDE LEVEL 107 MEQ/L (98-107); GLOMERULAR FILTRATION RATE > 60.0 (>51); GLUCOSE, FASTING 78 MG/DL (70-100); POTASSIUM SERUM 4.2 MEQ/L (3.5-5.1); SODIUM LEVEL 137 MEQ/L (136-145)
[2022-03-24] MEDS ORDERED: ISOVUE-370 76% 100ML VIAL As Ordered ONE (17:48)
[2022-03-24] MEDS ORDERED: OMEP40CA4 PO (19:20)
[2022-03-24] MEDS ORDERED: ONDA4TAB6 PO (19:20)
[2022-03-24 20:02] VITALS: BP 156/90
== END 2022-03-24 20:06 | disposition home or self-care (01) ==
LOC: M ED 13:52
DX: K21.9 Gastro-esophageal reflux disease without esophagitis (principal); I10 Essential (primary) hypertension; M79.7 Fibromyalgia; J45.909 Unspecified asthma, uncomplicated; K58.9 Irritable bowel syndrome, unspecified; E03.9 Hypothyroidism, unspecified; Z86.73 Personal history of transient ischemic attack (TIA), and cerebral infarction without residual deficits; R93.2 Abnormal findings on diagnostic imaging of liver and biliary tract; Z96.643 Presence of artificial hip joint, bilateral; M48.061 Spinal stenosis, lumbar region without neurogenic claudication; Z79.890 Hormone replacement therapy; Z79.82 Long term (current) use of aspirin; Z79.899 Other long term (current) drug therapy; Z88.0 Allergy status to penicillin; Z88.2 Allergy status to sulfonamides; Z88.1 Allergy status to other antibiotic agents; Z91.89 Other specified personal risk factors, not elsewhere classified; Z91.030 Bee allergy status
CPT/HCPCS: 74177; 80048; 80076; 81001; 83690; 85025; 96374; 99284; Q9967

== ENCOUNTER → 2022-06-22 | Outpatient (CLI) | payer OTHER ==
[~2022-06-22] MED LIST changes: +ALBU6.7H6 INH; +ALBU8.5H INH; +ASPI-1 PO; +ATOR1TAB21 PO; +FISH10005 PO; -FISH7.5C PO; +LEVO125T4 PO; +ONDA4TAB6 PO; -PROV108A INH; +XIID5DRO OP
[2022-06-22 12:54] LABS: LDH LACTATE DEHYDROGENASE 202 U/L (84-246); TOTAL PROTEIN 7.1 GM/DL (6.4-8.2)
[2022-06-23 14:48] LABS: ALBUMIN 4.68 GM/DL (3.29-5.55); ALBUMIN % 65.9 % (55.8-66.1); ALPHA-1-GLOBULIN % 3.8 % (2.9-4.9); ALPHA-1-GLOBULINS 0.27 GM/DL (0.17-0.41); ALPHA-2-GLOBULINS 0.64 GM/DL (0.42-0.99); BETA-1-GLOBULINS 0.47 GM/DL (0.28-0.60); BETA-1-GLOBULINS % 6.6 % (4.7-7.2); BETA-2-GLOBULINS 0.33 GM/DL (0.19-0.55); BETA-2-GLOBULINS % 4.7 % (3.2-6.5); GAMMA GLOBULINS 0.71 GM/DL (0.65-1.58)
[2022-06-23 17:07] LABS: FREE KAPPA LIGHT CHAINS SERUM 18.4 mg/L (3.3-19.4); FREE LAMBDA LIGHT CHAINS SERUM 16.8 mg/L (5.7-26.3)
== END ==
LOC: M LAB 11:09
PROVIDERS: ATTEND Nurse Practitioner Family
DX: D72.820 Lymphocytosis (symptomatic) (principal)

== ENCOUNTER 2022-06-26 10:54 | Observation (INO) | payer OTHER ==
[~2022-06-26] VITALS: Ht 172.7 cm; Wt 96.5 kg
[~2022-06-26 10:54] MED LIST changes: -ALBU8.5H INH; -ASPI-1 PO; -ATOR1TAB21 PO; -LEVO125T4 PO; -XIID5DRO OP; +atenoloL 25 MG TAB PO SCH
[2022-06-26 11:35] LABS: BASO % 0.5 % (0.0-1.0); EOS # 0.1 10^3/uL (0.0-0.5); HEMATOCRIT 48.6 % (36.0-47.0); HEMOGLOBIN 15.6 g/dl (12.0-15.5); LYMPH # 3.3 10^3/uL (1.5-5.0); LYMPH % 40.9 % (24.0-44.0); MEAN CORPUSCULAR HEMOGLOBIN 28.6 pg (27.0-33.0); MEAN CORPUSCULAR HGB CONC 32.1 g/dl (32.0-36.5); MEAN CORPUSCULAR VOLUME 89.2 fl (80.0-96.0); MONO # 0.7 10^3/uL (0.0-0.8); MONO % 8.5 % (2.0-8.0); NEUTROPHILS # 3.9 10^3/uL (1.5-8.5); PLATELET COUNT, AUTOMATED 262 10^3/uL (150-450); RED BLOOD COUNT 5.45 10^6/uL (4.00-5.40)
[2022-06-26 12:08] LABS: CK-MB VALUE MASS 1.2 NG/ML (<3.6); MB/CK RELATIVE INDEX 0.63 (< OR =4)
[2022-06-26] MEDS ORDERED: ISOVUE-370 76% 100ML VIAL As Ordered ONE (12:27)
[2022-06-26 13:55] LABS: RSV AMPLIFICATION NEGATIVE (NEGATIVE)
[2022-06-26] MEDS ORDERED: XIID5DRO OP (14:01)
[2022-06-26] MEDS ORDERED: ALBU8.5H INH (14:01)
[2022-06-26] MEDS ORDERED: LEVO125T4 PO (14:02)
[2022-06-26] MEDS ORDERED: ALPRAZolam 0.5 MG TAB PO PRN (14:05)
[2022-06-26] MEDS ORDERED: HOME MED LIST COMPLETE! XX SCH (14:05)
[2022-06-26] MEDS ORDERED: OMEPRAZOLE 20MG CAP PO PRN (14:05)
[2022-06-26 15:48] VITALS: BP 170/72
[2022-06-26 16:26] VITALS: BP 159/96
[2022-06-26] MEDS ORDERED: ALPRAZolam 0.5 MG TAB PO ONE (16:50)
[2022-06-26] MEDS: ASPIRIN 325 MG TAB PO SCH (16:55)
[2022-06-26] MEDS: HYDROXYCHLOROQUINE 200 MG TAB PO SCH (17:00)
[2022-06-26 18:25] VITALS: BP 130/83
[2022-06-26 19:45] VITALS: BP 147/77
[2022-06-26 20:35] VITALS: BP 125/82
[2022-06-26 20:52] LABS: CK-MB VALUE MASS 1.5 NG/ML (<3.6); MB/CK RELATIVE INDEX 0.74 (< OR =4)
[2022-06-26] MEDS ORDERED: ESCITALOPRAM OXALATE 10 MG TAB (LEXAPRO) PO SCH (21:00)
[2022-06-26] MEDS ORDERED: ATORVASTATIN 20 MG TAB PO SCH (21:00)
[2022-06-26] MEDS ORDERED: ACETAMINOPHEN TAB 650MG DOSE (2X325MG) PO PRN (23:00)
[2022-06-26 23:39] VITALS: BP 135/77
[2022-06-27 00:58] VITALS: BP 123/85
[2022-06-27] MEDS ORDERED: NS 1,000 ML IV SCH (01:25)
[2022-06-27 04:13] VITALS: BP 134/96
[2022-06-27 04:18] LABS: HEMATOCRIT 44.3 % (36.0-47.0); HEMOGLOBIN 14.1 g/dl (12.0-15.5); MEAN CORPUSCULAR HEMOGLOBIN 28.9 pg (27.0-33.0); MEAN CORPUSCULAR HGB CONC 31.8 g/dl (32.0-36.5); MEAN CORPUSCULAR VOLUME 90.8 fl (80.0-96.0); PLATELET COUNT, AUTOMATED 226 10^3/uL (150-450); RED BLOOD COUNT 4.88 10^6/uL (4.00-5.40); WHITE BLOOD COUNT 5.7 10^3/uL (4.0-10.0)
[2022-06-27 04:49] LABS: CALCIUM LEVEL 9.4 MG/DL (8.5-10.1); CREATININE FOR GFR 1.07 MG/DL (0.55-1.30); GLOMERULAR FILTRATION RATE 55.9 (>51)
[2022-06-27 04:54] LABS: CK-MB VALUE MASS 1.4 NG/ML (<3.6); MB/CK RELATIVE INDEX 0.68 (< OR =4)
[2022-06-27] MEDS ORDERED: LEVOTHYROXINE 125MCG TABLET (0.125MG) PO SCH (06:00)
[2022-06-27 07:51] VITALS: BP 142/91
[2022-06-27 08:00] VITALS: BP 142/91
[2022-06-27] MEDS: HYDROXYCHLOROQUINE 200 MG TAB PO SCH (08:03)
[2022-06-27] MEDS: ASPIRIN 325 MG TAB PO SCH (08:03)
[2022-06-27] MEDS ORDERED: ENOXAPARIN 40MG/0.4ML SYRINGE (J1650 PER 10MG) SC SCH (09:00)
[2022-06-27] MEDS ORDERED: ATOR1TAB21 PO (09:01)
[2022-06-27] MEDS ORDERED: ASPI-1 PO (09:01)
== END 2022-06-27 11:35 | disposition home or self-care (01) ==
LOC: M ED 10:54 → M ED INP 14:04 → ENRESERV 14:51 → M PCU 15:41
PROVIDERS: ADMIT Family Medicine; ATTEND Family Medicine
DX: I63.89 Other cerebral infarction (principal); J45.909 Unspecified asthma, uncomplicated; R73.03 Prediabetes; I11.9 Hypertensive heart disease without heart failure; E03.9 Hypothyroidism, unspecified; F32.A Depression, unspecified; Z86.73 Personal history of transient ischemic attack (TIA), and cerebral infarction without residual deficits; M81.0 Age-related osteoporosis without current pathological fracture; Z79.82 Long term (current) use of aspirin; Z79.899 Other long term (current) drug therapy
CPT/HCPCS: 36415; 70450; 70496; 70498; 70551; 71045; 80047; 80048; 82550; 82553; 85025; 85027; 85730; 87631; 93005; 93041; 93306; 94760; 96360; 96361; 99285; J1650; Q9967

== ENCOUNTER → 2022-08-18 | Outpatient (REF) | payer OTHER ==
[~2022-08-18] MED LIST changes: +ALBU8.5H INH; +ASPI-1 PO; +ATOR1TAB21 PO; +LEVO125T4 PO; +XIID5DRO OP; -atenoloL 25 MG TAB PO SCH
[2022-08-18 17:41] LABS: APPEARANCE, URINE MANUAL CLEAR (CLEAR); COLOR, URINE MANUAL YELLOW (YELLOW); GLUCOSE, URINE (UA) MANUAL NEGATIVE (NEGATIVE); KETONE, URINE MANUAL NEGATIVE (NEGATIVE); PROTEIN, URINE MANUAL TRACE mg/dL (NEGATIVE); UROBILINOGEN, URINE MANUAL NORMAL (NORMAL)
[2022-08-18 17:42] LABS: BILIRUBIN, URINE MANUAL NEGATIVE (NEGATIVE); BLOOD URINE MANUAL NEGATIVE (NEGATIVE); LEUKOCYTE ESTERASE, URINE MAN TRACE (NEGATIVE); NITRITE, URINE MANUAL NEGATIVE (NEGATIVE)
[2022-08-18 18:32] LABS: BACTERIA, URINE SMALL AMOUNT; CALCIUM OXALATE CRYSTALS,URINE SMALL AMOUNT /hpf; HYALINE CAST, URINE NONE SEEN /lpf (0-1); MUCUS, URINE SMALL AMOUNT (NEGATIVE); RBC, URINE 0-1 /hpf (0-3)
[2022-08-18 18:33] LABS: SQUAMOUS EPITHELIAL CELL URINE MOD AMOUNT /hpf (SMALL AMT)
== END ==
LOC: M SMT 17:14
PROVIDERS: ATTEND Urology
DX: N39.0 Urinary tract infection, site not specified (principal)

== ENCOUNTER → 2022-08-31 | Outpatient (REF) | payer OTHER ==
[2022-08-31 17:47] LABS: APPEARANCE, URINE MANUAL CLEAR (CLEAR); COLOR, URINE MANUAL LT YELLOW (YELLOW)
[2022-08-31 17:48] LABS: BILIRUBIN, URINE MANUAL NEGATIVE (NEGATIVE); BLOOD URINE MANUAL NEGATIVE (NEGATIVE); GLUCOSE, URINE (UA) MANUAL NEGATIVE (NEGATIVE); KETONE, URINE MANUAL NEGATIVE (NEGATIVE); LEUKOCYTE ESTERASE, URINE MAN NEGATIVE (NEGATIVE); NITRITE, URINE MANUAL NEGATIVE (NEGATIVE); PROTEIN, URINE MANUAL NEGATIVE (NEGATIVE); UROBILINOGEN, URINE MANUAL NORMAL (NORMAL)
== END ==
LOC: M SMT 16:40
PROVIDERS: ATTEND Urology
DX: Z87.440 Personal history of urinary (tract) infections (principal)

== ENCOUNTER → 2022-09-27 | Outpatient (CLI) | payer OTHER | LOC: M RAD 12:06 | PROVIDERS: ATTEND Urology | DX: Z87.440 Personal history of urinary (tract) infections (principal); N28.1 Cyst of kidney, acquired ==

== ENCOUNTER → 2022-10-19 | Outpatient (CLI) | payer OTHER ==
[2022-10-19 17:21] LABS: HEMATOCRIT 46.9 % (36.0-47.0); HEMOGLOBIN 14.4 g/dl (12.0-15.5); MEAN CORPUSCULAR HGB CONC 30.7 g/dl (32.0-36.5); MEAN CORPUSCULAR VOLUME 91.2 fl (80.0-96.0); PLATELET COUNT, AUTOMATED 224 10^3/uL (150-450); RED BLOOD COUNT 5.14 10^6/uL (4.00-5.40); WHITE BLOOD COUNT 5.7 10^3/uL (4.0-10.0)
[2022-10-19 17:52] LABS: ALBUMIN 3.7 G/DL (3.2-5.2); BILIRUBIN,TOTAL 0.4 MG/DL (0.3-1.2); CALCIUM LEVEL 9.7 MG/DL (8.5-10.1); CHOLESTEROL RISK RATIO 1.65 (<5); CREATININE FOR GFR 1.06 MG/DL (0.55-1.30); GLOMERULAR FILTRATION RATE 56.5 (>51); HDL CHOLESTEROL 104.1 MG/DL (>40); LDL CHOLESTEROL 51.1 MG/DL (<100); POTASSIUM SERUM 4.1 MMOL/L (3.5-5.1); TOTAL PROTEIN 6.4 G/DL (5.7-8.2)
[2022-10-19 17:55] LABS: THYROID STIMULATING HORMONE 1.05 uIU/ML (0.55-4.78); TOTAL 25(OH) VITAMIN D 49.8 NG/ML (20.0-100.0)
[2022-10-19 17:59] LABS: FREE T4 1.04 NG/DL (0.89-1.76)
[2022-10-19 18:35] LABS: HEMOGLOBIN A1c 5.3 % (4.0-6.0)
== END ==
LOC: M PLALAB 14:54
PROVIDERS: ATTEND Student in an Organized Health Care Education/Training Program
DX: Z86.73 Personal history of transient ischemic attack (TIA), and cerebral infarction without residual deficits (principal); M81.0 Age-related osteoporosis without current pathological fracture; E53.8 Deficiency of other specified B group vitamins; E03.9 Hypothyroidism, unspecified

== ENCOUNTER → 2022-10-27 | Outpatient (REF) | payer OTHER | LOC: M SFHCPLAZ 13:02 | PROVIDERS: ATTEND Student in an Organized Health Care Education/Training Program | DX: Z76.89 Persons encountering health services in other specified circumstances (principal); A66.3 Hyperkeratosis of yaws; L85.8 Other specified epidermal thickening; L30.8 Other specified dermatitis ==

== ENCOUNTER → 2023-01-28 | Outpatient (CLI) | payer OTHER ==
[2023-01-28 13:17] LABS: BASO % 0.5 % (0.0-1.0); EOS # 0.1 10^3/uL (0.0-0.5); EOS % 1.1 % (0.0-3.0); HEMOGLOBIN 14.3 g/dl (12.0-15.5); LYMPH # 2.5 10^3/uL (1.5-5.0); MEAN CORPUSCULAR HEMOGLOBIN 27.9 pg (27.0-33.0); MEAN CORPUSCULAR HGB CONC 31.1 g/dl (32.0-36.5); MEAN CORPUSCULAR VOLUME 89.7 fl (80.0-96.0); MONO # 0.7 10^3/uL (0.0-0.8); MONO % 12.6 % (2.0-8.0); NEUTROPHILS # 2.3 10^3/uL (1.5-8.5); NEUTROPHILS % 40.6 % (36.0-66.0); PLATELET COUNT, AUTOMATED 250 10^3/uL (150-450); RED BLOOD COUNT 5.13 10^6/uL (4.00-5.40); WHITE BLOOD COUNT 5.7 10^3/uL (4.0-10.0)
[2023-01-28 13:34] LABS: ALBUMIN 3.8 G/DL (3.2-5.2); BILIRUBIN,TOTAL 0.4 MG/DL (0.3-1.2); CALCIUM LEVEL 10.9 MG/DL (8.5-10.1); CHOLESTEROL RISK RATIO 1.6 (<5); CREATININE FOR GFR 1.01 MG/DL (0.55-1.30); GLOMERULAR FILTRATION RATE 59.7 (>51); LDL CHOLESTEROL 44.4 MG/DL (<100); POTASSIUM SERUM 4.6 MMOL/L (3.5-5.1); TOTAL PROTEIN 6.4 G/DL (5.7-8.2)
== END ==
LOC: M PLALAB 11:31
PROVIDERS: ATTEND Psychiatry & Neurology Neurology
DX: I63.9 Cerebral infarction, unspecified (principal)

== ENCOUNTER → 2023-01-28 | Outpatient (CLI) | payer OTHER ==
[2023-01-28 13:19] LABS: BASO % 0.5 % (0.0-1.0); EOS # 0.1 10^3/uL (0.0-0.5); EOS % 0.9 % (0.0-3.0); HEMATOCRIT 45.9 % (36.0-47.0); HEMOGLOBIN 14.4 g/dl (12.0-15.5); LYMPH # 2.6 10^3/uL (1.5-5.0); LYMPH % 45.6 % (24.0-44.0); MEAN CORPUSCULAR HEMOGLOBIN 28.1 pg (27.0-33.0); MEAN CORPUSCULAR HGB CONC 31.4 g/dl (32.0-36.5); MEAN CORPUSCULAR VOLUME 89.6 fl (80.0-96.0); MONO # 0.7 10^3/uL (0.0-0.8); MONO % 12.8 % (2.0-8.0); NEUTROPHILS # 2.3 10^3/uL (1.5-8.5); PLATELET COUNT, AUTOMATED 246 10^3/uL (150-450); RED BLOOD COUNT 5.12 10^6/uL (4.00-5.40); WHITE BLOOD COUNT 5.6 10^3/uL (4.0-10.0)
[2023-01-28 13:35] LABS: ERYTHROCYTE SEDIMENTATION RATE 9 mm/hr (0-30)
[2023-01-28 13:49] LABS: C REACTIVE PROTEIN QUANTITATIV < 0.40 MG/DL (<1.0)
[2023-01-28 13:51] LABS: ALBUMIN 3.5 G/DL (3.2-5.2); ALKALINE PHOSPHATASE 83 U/L (46-116); ALT/SGPT 30 U/L (7.0-40); AST/SGOT 24 U/L (<34); BILIRUBIN,TOTAL 0.4 MG/DL (0.3-1.2); BLOOD UREA NITROGEN 15 MG/DL (9-23); CARBON DIOXIDE LEVEL 30 MMOL/L (20-31); CHLORIDE LEVEL 106 MMOL/L (98-107); CREATININE FOR GFR 1.01 MG/DL (0.55-1.30); GLOMERULAR FILTRATION RATE 59.7 (>51); GLUCOSE, FASTING 90 MG/DL (60-100); POTASSIUM SERUM 4.5 MMOL/L (3.5-5.1); SODIUM LEVEL 141 MMOL/L (136-145); TOTAL PROTEIN 6.2 G/DL (5.7-8.2)
[2023-01-31 12:07] LABS: ANTI DS-DNA AB Negative (Negative); SSA SJOGRENS A <0.2 AI (0.0-0.9); SSB SJOGRENS B <0.2 AI (0.0-0.9)
== END ==
LOC: M PLALAB 11:28
PROVIDERS: ATTEND Physician Assistant
DX: M06.9 Rheumatoid arthritis, unspecified (principal); Z51.81 Encounter for therapeutic drug level monitoring

== ENCOUNTER → 2023-03-01 | Outpatient (CLI) | payer OTHER | LOC: M LAB 11:43 | PROVIDERS: ATTEND Physician Assistant | DX: E83.52 Hypercalcemia (principal) ==

== ENCOUNTER → 2023-10-25 | Outpatient (CLI) | payer OTHER ==
[~2023-10-25] MED LIST changes: +DICY-61 PO; -DICY10CA13 PO; -GABA-283 PO; +GABA-284 PO; -HYDR200T3; -HYDR200T3 PO; +HYDR200T46; +HYDR200T46 PO
[2023-10-25 12:41] LABS: ALKALINE PHOSPHATASE 87 U/L (46-116); ALT/SGPT 50 U/L (7.0-40); AST/SGOT 33 U/L (<34); BILIRUBIN,TOTAL 0.5 MG/DL (0.3-1.2); BLOOD UREA NITROGEN 14 MG/DL (9-23); CARBON DIOXIDE LEVEL 30 MMOL/L (20-31); CHLORIDE LEVEL 107 MMOL/L (98-107); CHOLESTEROL LEVEL 221 MG/DL (<200); CHOLESTEROL RISK RATIO 2.15 (<5); CREATININE FOR GFR 0.85 MG/DL (0.55-1.30); GLOMERULAR FILTRATION RATE > 60.0 (>45); GLUCOSE, FASTING 83 MG/DL (74-106); HDL CHOLESTEROL 102.7 MG/DL (>40); LDL CHOLESTEROL 89.7 MG/DL (<100); NON-HDL-C 118.3 MG/DL; POTASSIUM SERUM 4.1 MMOL/L (3.5-5.1); SODIUM LEVEL 141 MMOL/L (136-145); TRIGLYCERIDES LEVEL 143 MG/DL (<150)
[2023-10-25 12:43] LABS: FREE T4 1.83 NG/DL (0.89-1.76); THYROID STIMULATING HORMONE 0.086 uIU/ML (0.55-4.78)
[2023-10-25 14:23] LABS: HEMOGLOBIN A1c 5.6 % (4.0-6.0)
== END ==
LOC: M LAB 11:10
PROVIDERS: ATTEND Student in an Organized Health Care Education/Training Program
DX: Z86.73 Personal history of transient ischemic attack (TIA), and cerebral infarction without residual deficits (principal); R73.01 Impaired fasting glucose; E03.9 Hypothyroidism, unspecified

== ENCOUNTER → 2023-10-25 | Outpatient (CLI) | payer OTHER ==
[2023-10-25 12:17] LABS: BASO % 0.8 % (0.0-1.0); EOS % 0.5 % (0.0-3.0); HEMATOCRIT 46.2 % (36.0-47.0); HEMOGLOBIN 14.7 g/dl (12.0-15.5); LYMPH % 52.7 % (24.0-44.0); MEAN CORPUSCULAR HEMOGLOBIN 28.7 pg (27.0-33.0); MEAN CORPUSCULAR HGB CONC 31.8 g/dl (32.0-36.5); MEAN CORPUSCULAR VOLUME 90.1 fl (80.0-96.0); MONO # 0.4 10^3/uL (0.0-0.8); MONO % 11.4 % (2.0-8.0); NEUTROPHILS # 1.3 10^3/uL (1.5-8.5); NEUTROPHILS % 34.3 % (36.0-66.0); PLATELET COUNT, AUTOMATED 213 10^3/uL (150-450); RED BLOOD COUNT 5.13 10^6/uL (4.00-5.40); WHITE BLOOD COUNT 3.9 10^3/uL (4.0-10.0)
[2023-10-25 12:40] LABS: ALKALINE PHOSPHATASE 85 U/L (46-116); ALT/SGPT 48 U/L (7.0-40); AST/SGOT 31 U/L (<34); BILIRUBIN,TOTAL 0.5 MG/DL (0.3-1.2); BLOOD UREA NITROGEN 14 MG/DL (9-23); CARBON DIOXIDE LEVEL 30 MMOL/L (20-31); CHLORIDE LEVEL 107 MMOL/L (98-107); CREATININE FOR GFR 0.88 MG/DL (0.55-1.30); GLOMERULAR FILTRATION RATE > 60.0 (>45); GLUCOSE, FASTING 86 MG/DL (74-106); POTASSIUM SERUM 4.1 MMOL/L (3.5-5.1); SODIUM LEVEL 141 MMOL/L (136-145); TOTAL PROTEIN 6.9 G/DL (5.7-8.2)
[2023-10-25 12:41] LABS: FOLATE > 24.0 NG/ML (>5.4)
[2023-10-25 12:42] LABS: VITAMIN B12 LEVEL 1009 PG/ML (211-911)
== END ==
LOC: M LAB 11:14
PROVIDERS: ATTEND Psychiatry & Neurology Neurology
DX: E53.8 Deficiency of other specified B group vitamins (principal); E51.9 Thiamine deficiency, unspecified; E53.1 Pyridoxine deficiency; D56.0 Alpha thalassemia; G45.9 Transient cerebral ischemic attack, unspecified

== ENCOUNTER → 2023-11-29 | Outpatient (CLI) | payer OTHER | LOC: M PLAIMG 14:01 | PROVIDERS: ATTEND Student in an Organized Health Care Education/Training Program | DX: R41.3 Other amnesia (principal); R90.82 White matter disease, unspecified ==

== ENCOUNTER 2024-03-03 18:00 | Emergency (ER) | payer OTHER ==
[~2024-03-03] VITALS: Ht 172.7 cm; Wt 95.5 kg
[~2024-03-03 18:00] MED LIST changes: +DOXY-323 PO; -DOXY-443 PO; +ONDA-282 PO; -ONDA4TAB6 PO
[2024-03-03 18:01] VITALS: BP 156/84; TEMP 97.9; O2SAT 95
[2024-03-03] MEDS: LIDOCAINE 5% (LIDODERM) PATCH TD ONE (20:24)
[2024-03-03] MEDS: ACETAMINOPHEN 500 MG TAB PO ONE (20:24)
[2024-03-03] MEDS ORDERED: ACET-683 PO (20:27)
== END 2024-03-03 20:34 | disposition home or self-care (01) ==
LOC: M ED 18:00
DX: M17.12 Unilateral primary osteoarthritis, left knee (principal); Z96.642 Presence of left artificial hip joint; Z86.73 Personal history of transient ischemic attack (TIA), and cerebral infarction without residual deficits; M79.7 Fibromyalgia; I10 Essential (primary) hypertension; J45.909 Unspecified asthma, uncomplicated; Z87.01 Personal history of pneumonia (recurrent); K58.9 Irritable bowel syndrome, unspecified; K21.9 Gastro-esophageal reflux disease without esophagitis; K57.90 Diverticulosis of intestine, part unspecified, without perforation or abscess without bleeding; K57.92 Diverticulitis of intestine, part unspecified, without perforation or abscess without bleeding; K76.0 Fatty (change of) liver, not elsewhere classified; Z87.19 Personal history of other diseases of the digestive system; Z87.440 Personal history of urinary (tract) infections; E03.9 Hypothyroidism, unspecified; M81.0 Age-related osteoporosis without current pathological fracture; F50.9 Eating disorder, unspecified; F41.9 Anxiety disorder, unspecified; F32.A Depression, unspecified; Z79.899 Other long term (current) drug therapy; Z88.0 Allergy status to penicillin; Z88.2 Allergy status to sulfonamides; Z88.1 Allergy status to other antibiotic agents; Z91.89 Other specified personal risk factors, not elsewhere classified; Z91.030 Bee allergy status

== ENCOUNTER → 2024-03-22 | Outpatient (CLI) | payer OTHER | LOC: M WHC 13:02 | PROVIDERS: ATTEND Student in an Organized Health Care Education/Training Program | DX: Z12.31 Encounter for screening mammogram for malignant neoplasm of breast (principal); Z53.9 Procedure and treatment not carried out, unspecified reason ==

== ENCOUNTER → 2024-04-12 | Outpatient (CLI) | payer OTHER ==
[2024-04-12 14:23] LABS: HEMATOCRIT 45.6 % (36.0-47.0)
[2024-04-12 14:52] LABS: FREE T4 1.26 NG/DL (0.89-1.76)
[2024-04-12 14:53] LABS: THYROID STIMULATING HORMONE 4.356 uIU/ML (0.55-4.78)
[2024-04-12 14:54] LABS: TOTAL 25(OH) VITAMIN D 43.8 NG/ML (20.0-100.0)
== END ==
LOC: M LAB 13:54
DX: R53.83 Other fatigue (principal); M06.9 Rheumatoid arthritis, unspecified; E03.9 Hypothyroidism, unspecified

== ENCOUNTER → 2024-04-12 | Outpatient (CLI) | payer OTHER | LOC: M RAD 13:51 | PROVIDERS: ATTEND Student in an Organized Health Care Education/Training Program | DX: Z53.9 Procedure and treatment not carried out, unspecified reason (principal) ==

== ENCOUNTER → 2024-04-17 | Outpatient (CLI) | payer OTHER | LOC: M RAD 13:48 | PROVIDERS: ATTEND Student in an Organized Health Care Education/Training Program | DX: M06.9 Rheumatoid arthritis, unspecified (principal); M19.041 Primary osteoarthritis, right hand; M19.042 Primary osteoarthritis, left hand; Z96.643 Presence of artificial hip joint, bilateral; M17.0 Bilateral primary osteoarthritis of knee; M20.11 Hallux valgus (acquired), right foot; M20.12 Hallux valgus (acquired), left foot; M21.611 Bunion of right foot; M21.612 Bunion of left foot; M77.32 Calcaneal spur, left foot ==

== ENCOUNTER → 2024-05-15 | Outpatient (CLI) | payer OTHER ==
[2024-05-15 13:37] LABS: BASO % 0.5 % (0.0-1.0); HEMATOCRIT 42.3 % (36.0-47.0); HEMOGLOBIN 13.2 g/dl (12.0-15.5); LYMPH # 1.9 10^3/uL (1.5-5.0); LYMPH % 33.1 % (24.0-44.0); MEAN CORPUSCULAR HEMOGLOBIN 28.8 pg (27.0-33.0); MEAN CORPUSCULAR HGB CONC 31.2 g/dl (32.0-36.5); MEAN CORPUSCULAR VOLUME 92.4 fl (80.0-96.0); MONO # 0.5 10^3/uL (0.0-0.8); NEUTROPHILS # 3.3 10^3/uL (1.5-8.5); NEUTROPHILS % 56.7 % (36.0-66.0); PLATELET COUNT, AUTOMATED 303 10^3/uL (150-450); RED BLOOD COUNT 4.58 10^6/uL (4.00-5.40); WHITE BLOOD COUNT 5.9 10^3/uL (4.0-10.0)
[2024-05-15 13:44] LABS: ERYTHROCYTE SEDIMENTATION RATE 7 mm/hr (0-30)
[2024-05-15 13:54] LABS: URIC ACID 4.2 MG/DL (3.1-7.8)
[2024-05-15 13:57] LABS: C REACTIVE PROTEIN QUANTITATIV < 0.40 MG/DL (<1.0)
[2024-05-15 13:59] LABS: ALBUMIN 3.6 G/DL (3.2-5.2); ALKALINE PHOSPHATASE 69 U/L (46-116); ALT/SGPT 20 U/L (7.0-40); AST/SGOT 13 U/L (<34); BILIRUBIN,TOTAL 0.5 MG/DL (0.3-1.2); BLOOD UREA NITROGEN 13 MG/DL (9-23); CALCIUM LEVEL 9.2 MG/DL (8.3-10.6); CARBON DIOXIDE LEVEL 30 MMOL/L (20-31); CHLORIDE LEVEL 108 MMOL/L (98-107); CREATININE FOR GFR 0.86 MG/DL (0.55-1.30); GLOMERULAR FILTRATION RATE > 60.0 (>45); GLUCOSE, FASTING 113 MG/DL (74-106); POTASSIUM SERUM 4.2 MMOL/L (3.5-5.1); SODIUM LEVEL 138 MMOL/L (136-145); TOTAL PROTEIN 6.4 G/DL (5.7-8.2)
[2024-05-15 14:33] LABS: RHEUMATOID FACTOR QUANT 202.6 IU/ML (<14)
== END ==
LOC: M RAD 12:44
PROVIDERS: ATTEND Student in an Organized Health Care Education/Training Program
DX: M06.9 Rheumatoid arthritis, unspecified (principal)

== ENCOUNTER → 2024-05-28 | Outpatient (CLI) | payer OTHER ==
[~2024-05-28] MED LIST changes: +GABA-1635 PO; -GABA800T4 PO
== END ==
LOC: M RAD 14:34
PROVIDERS: ATTEND Student in an Organized Health Care Education/Training Program
DX: M06.9 Rheumatoid arthritis, unspecified (principal)

== ENCOUNTER → 2024-07-27 | Outpatient (CLI) | payer OTHER ==
[~2024-07-27] MED LIST changes: -DOXY-323 PO; +DOXY-441 PO
[2024-07-27 12:20] LABS: C REACTIVE PROTEIN QUANTITATIV < 0.40 MG/DL (<1.0)
[2024-07-27 12:21] LABS: FREE T4 1.52 NG/DL (0.89-1.76); THYROID STIMULATING HORMONE 0.648 uIU/ML (0.55-4.78); TOTAL 25(OH) VITAMIN D 56.3 NG/ML (20.0-100.0)
== END ==
LOC: M LAB 11:01
PROVIDERS: ATTEND Student in an Organized Health Care Education/Training Program
DX: E55.9 Vitamin D deficiency, unspecified (principal); E03.9 Hypothyroidism, unspecified; L40.50 Arthropathic psoriasis, unspecified

== ENCOUNTER → 2024-09-26 | Outpatient (CLI) | payer OTHER | LOC: M WHC 10:15 | PROVIDERS: ATTEND Student in an Organized Health Care Education/Training Program | DX: M85.88 Other specified disorders of bone density and structure, other site (principal) ==

== ENCOUNTER 2024-10-18 12:43 | Outpatient (RCR) | payer OTHER | END 2024-10-19 | LOC: M PT 12:43 | PROVIDERS: ATTEND Student in an Organized Health Care Education/Training Program | DX: M25.562 Pain in left knee (principal); M15.9 Polyosteoarthritis, unspecified ==

== ENCOUNTER 2024-10-29 12:40 | Outpatient (RCR) | payer OTHER | END 2024-11-16 | LOC: M PT 12:40 | PROVIDERS: ATTEND Student in an Organized Health Care Education/Training Program | DX: M25.562 Pain in left knee (principal) ==

== ENCOUNTER → 2024-11-20 | Outpatient (REF) | payer OTHER ==
[2024-11-20 15:20] LABS: BASO % 0.5 % (0.0-1.0); EOS % 0.5 % (0.0-3.0); HEMATOCRIT 43.7 % (36.0-47.0); HEMOGLOBIN 13.8 g/dl (12.0-15.5); LYMPH # 1.4 10^3/uL (1.5-5.0); LYMPH % 35.4 % (24.0-44.0); MEAN CORPUSCULAR HEMOGLOBIN 29.2 pg (27.0-33.0); MEAN CORPUSCULAR HGB CONC 31.6 g/dl (32.0-36.5); MEAN CORPUSCULAR VOLUME 92.6 fl (80.0-96.0); MONO # 0.5 10^3/uL (0.0-0.8); MONO % 13.7 % (2.0-8.0); NEUTROPHILS # 1.9 10^3/uL (1.5-8.5); NEUTROPHILS % 49.9 % (36.0-66.0); PLATELET COUNT, AUTOMATED 196 10^3/uL (150-450); RED BLOOD COUNT 4.72 10^6/uL (4.00-5.40); WHITE BLOOD COUNT 3.9 10^3/uL (4.0-10.0)
[2024-11-20 15:21] LABS: C REACTIVE PROTEIN QUANTITATIV < 0.50 MG/DL (<1.0)
[2024-11-20 15:24] LABS: ALBUMIN 3.7 G/DL (3.2-5.2); ALKALINE PHOSPHATASE 70 U/L (35-104); ALT/SGPT 33 U/L (7.0-40); AST/SGOT 20 U/L (<34); BILIRUBIN,TOTAL 0.6 MG/DL (0.3-1.2); BLOOD UREA NITROGEN 12 MG/DL (9-23); CARBON DIOXIDE LEVEL 22 MMOL/L (20-31); CHLORIDE LEVEL 113 MMOL/L (98-107); CREATININE FOR GFR 1.11 MG/DL (0.55-1.30); GLOMERULAR FILTRATION RATE 53.2 (>45); GLUCOSE, FASTING 94 MG/DL (74-106); POTASSIUM SERUM 4.1 MMOL/L (3.5-5.1); SODIUM LEVEL 144 MMOL/L (136-145); TOTAL PROTEIN 6.6 G/DL (5.7-8.2)
[2024-11-20 15:30] LABS: ERYTHROCYTE SEDIMENTATION RATE 10 mm/hr (0-30)
[2024-11-20 15:34] LABS: HEPATITIS B SURFACE ANTIGEN NEGATIVE (NEGATIVE)
[2024-11-22 13:02] LABS: QuantiFERON-TB Gold Plus NEGATIVE (NEGATIVE)
[2024-11-22 17:07] LABS: HEPATITIS B CORE ANTIBODY IGG NON-REACTIVE (NON-REACTIVE)
== END ==
LOC: M SFHCRHEU 10:23
PROVIDERS: ATTEND Internal Medicine Rheumatology
DX: M05.79 Rheumatoid arthritis with rheumatoid factor of multiple sites without organ or systems involvement (principal); Z79.60 Long term (current) use of unspecified immunomodulators and immunosuppressants; L40.8 Other psoriasis

== ENCOUNTER → 2025-04-11 | Outpatient (REF) | payer OTHER ==
[~2025-04-11] MED LIST changes: +ACYC-438 PO; -ACYC1TAB PO; -HYDR28CR33 TOP; +HYDR28CR52 TOP; +LIFI1DRO4 OP; +LIFI1DRO4 OU; +TOPI-14 PO; +TOPI-257 PO; -TOPI100T9 PO; -TOPI200T7 PO; -XIID5DRO OP; -XIID5DRO OU
[2025-04-11 17:42] LABS: BASO # 0.0 10^3/uL (0.0-0.2); BASO % 0.6 % (0.0-1.0); EOS # 0.0 10^3/uL (0.0-0.5); EOS % 0.4 % (0.0-3.0); LYMPH # 1.8 10^3/uL (1.5-5.0); LYMPH % 38.6 % (24.0-44.0); MONO # 0.7 10^3/uL (0.0-0.8); MONO % 14.9 % (2.0-8.0); NEUTROPHILS # 2.1 10^3/uL (1.5-8.5); NEUTROPHILS % 45.3 % (36.0-66.0); PLATELET COUNT, AUTOMATED 213 10^3/uL (150-450)
[2025-04-11 17:48] LABS: ERYTHROCYTE SEDIMENTATION RATE 5 mm/hr (0-30)
[2025-04-11 18:00] LABS: C REACTIVE PROTEIN QUANTITATIV < 0.50 MG/DL (<1.0)
[2025-04-11 18:01] LABS: ALT/SGPT 34 U/L (7.0-40); AST/SGOT 26 U/L (<34); CALCIUM LEVEL 9.8 MG/DL (8.3-10.6); CARBON DIOXIDE LEVEL 28 MMOL/L (20-31); CHLORIDE LEVEL 108 MMOL/L (98-107); CREATININE FOR GFR 0.99 MG/DL (0.55-1.30); GLOMERULAR FILTRATION RATE 64.9 (>45); POTASSIUM SERUM 3.9 MMOL/L (3.5-5.1); SODIUM LEVEL 146 MMOL/L (136-145)
== END ==
LOC: M SFHCRHEU 15:58
PROVIDERS: ATTEND Internal Medicine Rheumatology
DX: M05.79 Rheumatoid arthritis with rheumatoid factor of multiple sites without organ or systems involvement (principal); Z79.60 Long term (current) use of unspecified immunomodulators and immunosuppressants; L40.8 Other psoriasis; R53.1 Weakness

== ENCOUNTER → 2025-04-22 | Outpatient (CLI) | payer OTHER | LOC: M SLEEP HO 11:20 | PROVIDERS: ATTEND Student in an Organized Health Care Education/Training Program | DX: G47.33 Obstructive sleep apnea (adult) (pediatric) (principal); R53.1 Weakness ==

== ENCOUNTER → 2025-05-16 | Outpatient (CLI) | payer OTHER ==
[~2025-05-16] MED LIST changes: +BUPR150T12 PO; +CYAN100017 SC; +DULO1CAP6 PO; +SUMA100T2 PO; +UPAD15TA PO
[2025-05-16 15:28] LABS: FREE T4 2.04 NG/DL (0.89-1.76)
== END ==
LOC: M LAB 14:06
PROVIDERS: ATTEND Student in an Organized Health Care Education/Training Program
DX: K59.00 Constipation, unspecified (principal)

== ENCOUNTER → 2025-05-24 | Outpatient (CLI) | payer OTHER ==
[2025-05-24 18:12] LABS: THYROGLOBULIN ANTIBODY 31.0 U/ML (<60.0); THYROID PEROXIDASE ANTIBODY < 28.0 U/ML (<60.0)
== END ==
LOC: M LAB 16:06
PROVIDERS: ATTEND Family Medicine
DX: R79.89 Other specified abnormal findings of blood chemistry (principal)

== ENCOUNTER → 2025-05-29 | Outpatient (CLI) | payer OTHER ==
[~2025-05-29] MED LIST changes: +METH-1100 PO; -METH-855 PO
== END ==
LOC: M RAD 10:50
PROVIDERS: ATTEND Student in an Organized Health Care Education/Training Program
DX: R79.89 Other specified abnormal findings of blood chemistry (principal)

== ENCOUNTER → 2025-06-25 | Outpatient (CLI) | payer OTHER | LOC: M PLAIMG 09:56 | PROVIDERS: ATTEND Orthopaedic Surgery | DX: M17.12 Unilateral primary osteoarthritis, left knee (principal) ==

== ENCOUNTER 2025-07-09 17:48 | Emergency (ER) | payer OTHER ==
[~2025-07-09] VITALS: Ht 172.7 cm; Wt 84.1 kg
[~2025-07-09 17:48] MED LIST changes: -LEVO88CA2 PO
[2025-07-09 17:52] VITALS: TEMP 98.1
[2025-07-09 21:21] LABS: BASO # 0.0 10^3/uL (0.0-0.2); BASO % 0.5 % (0.0-1.0); EOS # 0.0 10^3/uL (0.0-0.5); EOS % 0.7 % (0.0-3.0); LYMPH # 3.3 10^3/uL (1.5-5.0); LYMPH % 56.9 % (24.0-44.0); MONO # 0.5 10^3/uL (0.0-0.8); MONO % 9.2 % (2.0-8.0); NEUTROPHILS # 1.9 10^3/uL (1.5-8.5); NEUTROPHILS % 32.5 % (36.0-66.0); PLATELET COUNT, AUTOMATED 235 10^3/uL (150-450)
[2025-07-09 21:34] LABS: INR 0.88
[2025-07-09 21:39] LABS: FREE T4 0.24 NG/DL (0.89-1.76)
[2025-07-09 21:41] LABS: ALT/SGPT 549 U/L (7.0-40); AST/SGOT 318 U/L (<34); CALCIUM LEVEL 10.9 MG/DL (8.3-10.6); CARBON DIOXIDE LEVEL 26 MMOL/L (20-31); CHLORIDE LEVEL 105 MMOL/L (98-107); CREATININE FOR GFR 1.34 MG/DL (0.55-1.30); GLOMERULAR FILTRATION RATE 44.8 (>45); POTASSIUM SERUM 4.7 MMOL/L (3.5-5.1); SODIUM LEVEL 141 MMOL/L (136-145)
[2025-07-09 22:18] VITALS: O2SAT 97
[2025-07-09 22:20] VITALS: BP 171/100
[2025-07-09] MEDS ORDERED: LEVO88CA2 PO (22:35)
== END 2025-07-09 22:49 | disposition home or self-care (01) ==
LOC: M ED 17:48 → EDBD 17:48 → M ED 22:49
DX: R74.01 Elevation of levels of liver transaminase levels (principal); E03.9 Hypothyroidism, unspecified; M79.7 Fibromyalgia; M06.9 Rheumatoid arthritis, unspecified; Z79.899 Other long term (current) drug therapy; Z88.0 Allergy status to penicillin; Z88.2 Allergy status to sulfonamides; Z88.1 Allergy status to other antibiotic agents; Z91.89 Other specified personal risk factors, not elsewhere classified; Z91.030 Bee allergy status

== ENCOUNTER → 2025-07-09 | Outpatient (CLI) | payer OTHER ==
[~2025-07-09] MED LIST changes: +LEVO88CA2 PO
== END ==
LOC: M LAB 15:22
PROVIDERS: ATTEND Student in an Organized Health Care Education/Training Program
DX: E03.9 Hypothyroidism, unspecified (principal); Z53.9 Procedure and treatment not carried out, unspecified reason

== ENCOUNTER → 2025-07-09 | Outpatient (CLI) | payer OTHER ==
[2025-07-09 15:48] LABS: BASO # 0.1 10^3/uL (0.0-0.2); BASO % 0.8 % (0.0-1.0); EOS # 0.0 10^3/uL (0.0-0.5); EOS % 0.5 % (0.0-3.0); LYMPH # 2.6 10^3/uL (1.5-5.0); LYMPH % 42.1 % (24.0-44.0); MONO # 0.7 10^3/uL (0.0-0.8); MONO % 10.7 % (2.0-8.0); NEUTROPHILS # 2.8 10^3/uL (1.5-8.5); NEUTROPHILS % 45.7 % (36.0-66.0); PLATELET COUNT, AUTOMATED 238 10^3/uL (150-450)
[2025-07-09 16:16] LABS: ALT/SGPT 517 U/L (7.0-40); AST/SGOT 288 U/L (<34); C REACTIVE PROTEIN QUANTITATIV < 0.50 MG/DL (<1.0); CALCIUM LEVEL 10.8 MG/DL (8.3-10.6); CARBON DIOXIDE LEVEL 28 MMOL/L (20-31); CHLORIDE LEVEL 105 MMOL/L (98-107); CREATININE FOR GFR 1.42 MG/DL (0.55-1.30); GLOMERULAR FILTRATION RATE 41.8 (>45); POTASSIUM SERUM 4.2 MMOL/L (3.5-5.1); SODIUM LEVEL 142 MMOL/L (136-145)
[2025-07-09 16:18] LABS: FREE T4 0.21 NG/DL (0.89-1.76)
[2025-07-10 06:44] LABS: ERYTHROCYTE SEDIMENTATION RATE 1 mm/hr (0-20)
== END ==
LOC: M LAB 15:25
PROVIDERS: ATTEND Student in an Organized Health Care Education/Training Program
DX: M05.79 Rheumatoid arthritis with rheumatoid factor of multiple sites without organ or systems involvement (principal)

== ENCOUNTER → 2025-07-16 | Outpatient (CLI) | payer OTHER ==
[~2025-07-16] MED LIST changes: +LEVO88CA2 PO
[2025-07-16 10:06] LABS: ALT/SGPT 257.0 U/L (7.0-40); AST/SGOT 74.0 U/L (<34); CALCIUM LEVEL 10.0 MG/DL (8.3-10.6); CARBON DIOXIDE LEVEL 28.0 MMOL/L (20-31); CHLORIDE LEVEL 109.0 MMOL/L (98-107); CREATININE FOR GFR 1.41 MG/DL (0.55-1.30); GLOMERULAR FILTRATION RATE 42.2 (>45); POTASSIUM SERUM 4.1 MMOL/L (3.5-5.1); SODIUM LEVEL 143.0 MMOL/L (136-145)
[2025-07-16 10:07] LABS: FREE T4 0.91 NG/DL (0.89-1.76)
[2025-07-16 10:14] LABS: CORTISOL AM 12.8 UG/DL (4.3-22.4)
== END ==
LOC: M LAB 08:35
PROVIDERS: ATTEND Student in an Organized Health Care Education/Training Program
DX: E03.9 Hypothyroidism, unspecified (principal); R53.82 Chronic fatigue, unspecified; R74.01 Elevation of levels of liver transaminase levels

== ENCOUNTER → 2025-07-29 | Outpatient (REF) | payer OTHER ==
[2025-07-29 13:57] LABS: ALT/SGPT 190.0 U/L (7.0-40); AST/SGOT 104.0 U/L (<34); CALCIUM LEVEL 9.9 MG/DL (8.3-10.6); CARBON DIOXIDE LEVEL 26.0 MMOL/L (20-31); CHLORIDE LEVEL 109.0 MMOL/L (98-107); CREATININE FOR GFR 1.14 MG/DL (0.55-1.30); GLOMERULAR FILTRATION RATE 54.4 (>45); POTASSIUM SERUM 4.1 MMOL/L (3.5-5.1); SODIUM LEVEL 144.0 MMOL/L (136-145)
[2025-07-29 14:00] LABS: FREE T4 1.88 NG/DL (0.89-1.76)
[2025-07-29 14:07] LABS: APPEARANCE, URINE CLOUDY (CLEAR); BACTERIA, URINE AUTO NEGATIVE (NEGATIVE); BILIRUBIN, URINE AUTO NEGATIVE (NEGATIVE); BLOOD, URINE BLOOD 2+ (NEGATIVE); CALCIUM OXALATE CRYSTALS LARGE; GLUCOSE, URINE (UA) AUTO NEGATIVE (NEGATIVE); KETONE, URINE AUTO NEGATIVE (NEGATIVE); LEUKOCYTE ESTERASE, URINE AUTO NEGATIVE (NEGATIVE); MUCUS, URINE LARGE (NEGATIVE); NITRITE, URINE AUTO NEGATIVE (NEGATIVE); PROTEIN, URINE AUTO NEGATIVE (NEGATIVE); RBC, URINE AUTO 25 /HPF (0-3); SPECIFIC GRAVITY URINE AUTO 1.021 (1.002-1.035); SQUAMOUS EPITHELIAL CELL UR AU 2 /HPF (0-6); UROBILINOGEN, URINE AUTO 0.2 mg/dL (0.0-2.0); WBC, URINE AUTO 4 /HPF (0-3)
== END ==
LOC: M SFHCADAM 08:12
DX: N28.9 Disorder of kidney and ureter, unspecified (principal)

== ENCOUNTER → 2025-08-20 | Outpatient (CLI) | payer OTHER ==
[~2025-08-20] MED LIST changes: -FISH10005 PO; +FISH1CAP38 PO; -MILK300C PO; +[UNRECOGNIZED DRUG - CODE] PO
== END ==
LOC: M WHC 13:37
PROVIDERS: ATTEND Student in an Organized Health Care Education/Training Program
DX: Z12.31 Encounter for screening mammogram for malignant neoplasm of breast (principal)

== ENCOUNTER → 2025-08-20 | Outpatient (CLI) | payer OTHER | LOC: M LAB 15:28 | PROVIDERS: ATTEND Internal Medicine Rheumatology | DX: M05.79 Rheumatoid arthritis with rheumatoid factor of multiple sites without organ or systems involvement (principal) ==

== ENCOUNTER → 2025-08-20 | Outpatient (CLI) | payer OTHER ==
[2025-08-20 16:55] LABS: AMORPHOUS SEDIMENT SMALL (NEGATIVE); APPEARANCE, URINE HAZY (CLEAR); BACTERIA, URINE AUTO NEGATIVE (NEGATIVE); BILIRUBIN, URINE AUTO NEGATIVE (NEGATIVE); BLOOD, URINE BLOOD NEGATIVE (NEGATIVE); GLUCOSE, URINE (UA) AUTO NEGATIVE (NEGATIVE); KETONE, URINE AUTO NEGATIVE (NEGATIVE); LEUKOCYTE ESTERASE, URINE AUTO NEGATIVE (NEGATIVE); MUCUS, URINE SMALL (NEGATIVE); NITRITE, URINE AUTO NEGATIVE (NEGATIVE); PROTEIN, URINE AUTO NEGATIVE (NEGATIVE); RBC, URINE AUTO 1 /HPF (0-3); SPECIFIC GRAVITY URINE AUTO 1.016 (1.002-1.035); SQUAMOUS EPITHELIAL CELL UR AU 0 /HPF (0-6); UROBILINOGEN, URINE AUTO 0.2 mg/dL (0.0-2.0); WBC, URINE AUTO 1 /HPF (0-3)
[2025-08-20 17:02] LABS: BASO # 0.0 10^3/uL (0.0-0.2); BASO % 0.8 % (0.0-1.0); EOS # 0.0 10^3/uL (0.0-0.5); EOS % 0.6 % (0.0-3.0); LYMPH # 1.6 10^3/uL (1.5-5.0); LYMPH % 32.9 % (24.0-44.0); MONO # 0.8 10^3/uL (0.0-0.8); MONO % 15.6 % (2.0-8.0); NEUTROPHILS # 2.4 10^3/uL (1.5-8.5); NEUTROPHILS % 49.9 % (36.0-66.0); PLATELET COUNT, AUTOMATED 252 10^3/uL (150-450)
[2025-08-20 17:30] LABS: ALT/SGPT 26 U/L (7.0-40); AST/SGOT 25 U/L (<34); C REACTIVE PROTEIN QUANTITATIV < 0.50 MG/DL (<1.0); CALCIUM LEVEL 10.5 MG/DL (8.3-10.6); CARBON DIOXIDE LEVEL 26 MMOL/L (20-31); CHLORIDE LEVEL 111 MMOL/L (98-107); CREATININE FOR GFR 1.04 MG/DL (0.55-1.30); GLOMERULAR FILTRATION RATE 60.8 (>45); POTASSIUM SERUM 4.9 MMOL/L (3.5-5.1); SODIUM LEVEL 145 MMOL/L (136-145)
== END ==
LOC: M LAB 15:33
PROVIDERS: ATTEND Internal Medicine Rheumatology
DX: R79.89 Other specified abnormal findings of blood chemistry (principal)

== ENCOUNTER → 2025-08-26 | Outpatient (CLI) | payer OTHER ==
[2025-08-26 12:10] LABS: BASO # 0.0 10^3/uL (0.0-0.2); BASO % 0.6 % (0.0-1.0); EOS # 0.0 10^3/uL (0.0-0.5); EOS % 0.6 % (0.0-3.0); LYMPH # 1.4 10^3/uL (1.5-5.0); LYMPH % 38.7 % (24.0-44.0); MONO # 0.6 10^3/uL (0.0-0.8); MONO % 15.5 % (2.0-8.0); NEUTROPHILS # 1.6 10^3/uL (1.5-8.5); NEUTROPHILS % 44.6 % (36.0-66.0); PLATELET COUNT, AUTOMATED 211 10^3/uL (150-450)
[2025-08-26 12:48] LABS: FREE T4 1.76 NG/DL (0.89-1.76)
[2025-08-26 12:50] LABS: ALT/SGPT 19 U/L (7.0-40); AST/SGOT 20 U/L (<34); C REACTIVE PROTEIN QUANTITATIV < 0.50 MG/DL (<1.0); CALCIUM LEVEL 9.6 MG/DL (8.3-10.6); CARBON DIOXIDE LEVEL 24 MMOL/L (20-31); CHLORIDE LEVEL 112 MMOL/L (98-107); CREATININE FOR GFR 1.05 MG/DL (0.55-1.30); GLOMERULAR FILTRATION RATE 60.1 (>45); POTASSIUM SERUM 4.0 MMOL/L (3.5-5.1); SODIUM LEVEL 146 MMOL/L (136-145)
[2025-08-26 12:53] LABS: THYROGLOBULIN ANTIBODY 32.0 U/ML (<60.0); TOTAL T3 116.6 NG/DL (60.0-181.0)
[2025-08-26 12:54] LABS: THYROID PEROXIDASE ANTIBODY < 28.0 U/ML (<60.0)
== END ==
LOC: M LAB 11:00
PROVIDERS: ATTEND Family Medicine
DX: E03.9 Hypothyroidism, unspecified (principal)